=== PATIENT | female | born 1965 ===

== ENCOUNTER 2020-10-23 08:55 | Emergency (ER) | payer MEDICAID, SELFPAY ==
--- NOTE | ~2020-10-23 | CT_ITS ---
EXAMINATION: CT ABDOMEN AND PELVIS WITH CONTRAST CLINICAL INFORMATION: Left lower quadrant pain COMPARISON: [facility] 05/18/[address] abdomen 04/11/2013 TECHNIQUE: Multidetector volumetric images were obtained from the superior aspect of the liver through the pubic symphysis following administration 85 mL of Omnipaque 350 intravenous contrast. Sagittal and coronal reformatted images were obtained on the technologist's workstation. Oral contrast: No This CT examination was performed using dose optimization techniques as appropriate, variously including the following: *Automated exposure control *Adjustment of mA and/or kV according to patient size (this includes techniques or standardized protocols for targeted exams where dose is matched to indication/reason for exam; i.e. extremities or head) *Use of iterative reconstruction technique DLP: 389 mGy-cm FINDINGS: LUNG BASES: The lung bases are clear. The heart size is normal. LIVER, GALLBLADDER, AND BILIARY TREE: The liver is mildly enlarged in size, normal shape, and normal attenuation. Liver measures 16 cm in length. No focal hepatic lesion or biliary ductal dilatation is present. There is mild periportal edema or areola tissue similar to previous study. The gallbladder is unremarkable with no evidence of radiopaque gallstones, gallbladder wall thickening, or obvious pericholecystic inflammatory changes. PANCREAS: Unremarkable. SPLEEN: Unremarkable. ADRENAL GLANDS: Unremarkable. KIDNEYS AND URETERS: The kidneys are normal in size, shape, and attenuation. No hydronephrosis, hydroureter, or calculi seen. No perinephric stranding. BLADDER: Unremarkable. GASTROINTESTINAL TRACT: There is scattered stool and gas seen throughout the colon without any significant distention of the stomach is nondilated. Appendix is not seen with certainty. There is no free air or inflammatory process. ABDOMINAL WALL: No significant hernia is appreciated. LYMPH NODES: Normal. VASCULAR: Unremarkable. PELVIC VISCERA: The uterus is anteverted and appears unremarkable. There is no free air or free fluid. OSSEOUS STRUCTURES: There is mild ventral spondylosis. No lytic or sclerotic process CT/CT abdomen pelvis w con IMPRESSION: Mild constipation without any signs of active obstruction or inflammatory changes. No radiopaque urolith or hydroureteronephrosis. Mild hepatomegaly.
--- NOTE | 2020-10-23 09:11 | ECG_ITS ---
Test Reason : NASUEA Blood Pressure : / mmHG Vent. Rate : 053 BPM Atrial Rate : 053 BPM P-R Int : 178 ms QRS Dur : 098 ms QT Int : 472 ms P-R-T Axes : 072 064 071 degrees QTc Int : 442 ms Sinus bradycardia Otherwise normal ECG When compared with ECG of 11-APR-2013 06:45, No significant change was found Referred By: Kaylen Haji Electronically Signed By:Isrrael Espinoza
--- NOTE | 2020-10-23 09:13 | ED_ITS ---
HPI - Nausea/Vomiting/Diarrhea General Chief complaint: Nausea/Vomiting/Diarrhea <GERARDO Masters Last Filed: 10/23/20 13:55> Stated complaint: vomiting <GERARDO Masters - Last Filed: 10/23/20 13:55> Time Seen by Provider: 10/23/20 08:58 <GERARDO Masters Last Filed: 10/23/20 13:55> Source: patient <GERARDO Masters Last Filed: 10/23/20 13:55> Mode of arrival: ambulatory <GERARDO Masters Last Filed: 10/23/20 13:55> Limitations: no limitations <GERARDO Masters Last Filed: 10/23/20 13:55> History of Present Illness HPI Narrative: 55 y/o female with history of GERD & lactose intolerance presents to the ED c/o nausea and vomiting x36 hours. She states her vomiting started after she ate [employer] on Friday night. She had persistent vomiting yesterday of mucus and bile, no blood. She states she has not been able to tolerate PO. Last vomited last night before taking a shower. She continued to be nauseous this morning so she came to the ER for evaluation. She denies fever, chills, diarrhea, abdominal pain, sick contacts. No SOB. She had one episode of sharp right sided chest pain yesterday when she was vomiting and it is now resolved. <GERARDO Masters - Last Filed: 10/23/20 13:55> MD elicited complaint: nausea and vomiting <GERARDO Masters - Last Filed: 10/23/20 13:55> Pertinent past history: abdominal surgery (s/p appendectomy) <GERARDO Masters Last Filed: 10/23/20 13:55> Onset (ago): day(s) <GERARDO Masters Last Filed: 10/23/20 13:55> Description of vomiting: bilious <GERARDO Masters Last Filed: 10/23/20 13:55> Associated nausea: Yes <GERARDO Masters Last Filed: 10/23/20 13:55> Associated abdominal pain: Yes <GERARDO Masters Last Filed: 10/23/20 13:55> Location of pain: LLQ <GERARDO Masters Last Filed: 10/23/20 13:55> Pain consistency: intermittent <GERARDO Masters Last Filed: 10/23/20 13:55> Severity: mild <GERARDO Masters Last Filed: 10/23/20 13:55> Quality: aching <GERARDO Masters Last Filed: 10/23/20 13:55> Exacerbating factors: vomiting <GERARDO Masters Last Filed: 10/23/20 13:55> Relieving factors: eating <GERARDO Masters Last Filed: 10/23/20 13:55> Context: possible food poisoning <GERARDO Masters Last Filed: 10/23/20 13:55> Associated symptoms: nausea/vomiting <GERARDO Masters Last Filed: 10/23/20 13:55> Related Data Home medications: Previous Rx's Medication Instructions Recorded lorazepam 0.5 mg tablet 0.5 mg PO BEDTIME PRN 30 Days #30 08/02/20 tab ondansetron HCl [Zofran] 4 mg PO Q8H PRN #10 tab 10/23/20 <GERARDO Masters Last Filed: 10/23/20 13:55> Allergies/Adverse reactions: Allergies Allergy/AdvReac Type Severity Reaction Status Date / Time lactose [LACTOSE] Allergy Severe DIARRHEA Unverified 04/13/20 15:36 aspirin [Aspirin] Allergy Unknown UPSET Unverified 04/13/20 15:36 STOMACH cheese Allergy Unknown Uncoded 11/13/16 00:00 milk Allergy Unknown Uncoded 11/13/16 00:00 <GERARDO Masters Last Filed: 10/23/20 13:55> Review of Systems Review of Systems: Constitutional: No Fever, No Chills ENT/Mouth: No sore throat, No Rhinorrhea, No Swallowing Difficulty Cardiovascular: + Chest Pain (x1, resolved), No SOB, No Orthopnea, No Edema Respiratory: No Cough, No Sputum, No Wheezing, No dyspnea Gastrointestinal: + Nausea, + Vomiting, No Diarrhea, No abdominal Pain, No Hematochezia, No Melena Genitourinary: No Dysuria, No Urinary Frequency, No Hematuria Musculoskeletal: No joint pain, No Myalgias Skin: No Skin Lesions, No rash Neuro: No Weakness, No Numbness, No Dizziness, No Headache Heme/Lymph: No Bruising, No Lymphadenopathy Endocrine: No Polyuria, No Polydipsia <GERARDO Masters - Last Filed: 10/23/20 13:55> Gastrointestinal: Gastrointestinal: Reports nausea <GERARDO Masters - Last Filed: 10/23/20 13:55> COUNTS INCLUDE 234 BEDS AT THE [facility] Past Medical History Attestation statement: The following information was validated with the patient. <GERARDO Masters - Last Filed: 10/23/20 13:55> Medical History: Medical History GERD (gastroesophageal reflux disease) <GERARDO Masters - Last Filed: 10/23/20 13:55> Social History Social History: Social History Alcohol intake: unknown Smoked in Last 30 Days: No Use of substances other than those prescribed or required for medical reasons: No Advance Directives: No Advance Directives Information Provided: No <GERARDO Masters - Last Filed: 10/23/20 13:55> Physical Exam Vital Signs: Vital Signs: Last Vital Signs Temp 97.7 F 10/23/20 09:16 Pulse 55 10/23/20 12:28 Resp 16 10/23/20 12:28 BP 151/87 H 10/23/20 12:28 Pulse Ox 100 10/23/20 12:28 Body Mass Index 21.9 Appearance: Alert. Oriented X3. No acute distress. Eyes: Pupils equal, round and reactive to light. ENT: Pharynx normal. Neck: Normal inspection. Neck supple. CVS: Normal heart rate and rhythm. Pulses normal. Respiratory: No respiratory distress. Breath sounds normal. Abdomen: Soft, LLQ tednerness without rebound or guarding. +BS x4. well healed 2 inch surgical scar in RLQ Skin: Skin warm and dry. Normal skin color. Normal skin turgor. No rashes. Extremities: No lower extremity edema. Neuro: Oriented X 3. No motor deficit. No sensory deficit. <GERARDO Masters - Last Filed: 10/23/20 13:55> Vital Signs: Last Vital Signs Temp 97.7 F 10/23/20 09:16 Pulse 55 10/23/20 12:28 Resp 16 10/23/20 12:28 BP 151/87 H 10/23/20 12:28 Pulse Ox 100 10/23/20 12:28 Body Mass Index 21.9 <Sekou Bernardo MD - Last Filed: 11/10/20 13:30> Course Course Course Narrative: 55 y/o female presenting with nausea and vomiting x 36 hours, possibly related to food intake on Friday. DDx includes but not limited to gastroenteritis, diverticulitits, SBO. No fever, chills, diarrhea. She denies abdominal pain but has LLQ tenderness. Will get labs and CT scan for further evaluation. IVF and zofran ordered. <GERARDO Masters - Last Filed: 13:55> I have reviewed the chart <Sekou Bernardo MD - Last Filed: 11/10/20 13:30> Reevaluation(s) Reevaluation #1: 10:20 am - Patient now reporting 6/10 abdominal pain and headache. Labs are unremarkable, BUN slightly elevated consistent with mild dehydration. Will give dose of Toradol and get CT scan. <GERARDO Masters - Last Filed: 10/23/20 13:55> Reevaluation #2: Pain improved. CT scan only showing moderate constipation, no acute intraabdominal process. Now reporting heart burn, will give GI cocktail and PO trial. <GERARDO Masters - Last Filed: 10/23/20 13:55> Reevaluation #3: Patient tolerating PO. No vomiting while in the ER, last episode was last night. She feels okay. She is stable for discharge home with plans to f/u with PCP and come back to the ER if symptoms worsen. <GERARDO Masters - Last Filed: 10/23/20 13:55> MDM - Nausea/Vomiting/Diarrhea Medical Records Attestation: I reviewed the patient's medical records. <GERARDO Masters - Last Filed: 10/23/20 13:55> Lab Data Attestation: I reviewed the patient's lab results. <GERARDO Masters - Last Filed: 10/23/20 13:55> Result diagrams: : 10/23/20 09:28 10/23/20 09:28 <GERARDO Masters - Last Filed: 10/23/20 13:55> Labs: Lab Results 10/23/20 10/23/20 10/23/20 Range/Units 09:28 09:28 09:28 WBC 5.2 (4.8-10.8) X10*3/uL RBC 4.25 (4.20-5.50) X10*6/uL Hgb 12.2 (12.0-16.0) g/dl Hct 37.7 (37-47) % MCV 88.7 (80-98) fL MCH 28.7 (27.0-33.0) pg MCHC 32.4 (31.0-35.0) g/dl RDW 12.5 (11.0-16.0) % Plt Count 208 (160-400) X10*3/uL MPV 10.1 (9.4-12.3) fL Immature Gran % (Auto) 0.2 (0.0-0.4) % Neut % (Auto) 72.4 (45-73) % Lymph % (Auto) 20.2 (20-40) % [place] % (Auto) 7.2 (2-11) % Eos % (Auto) 0.0 (0-4) % Baso % (Auto) 0.0 (0-2) % Lymph # (Auto) 1.0 L (1.2-4.9) X10*3/uL [place] # (Auto) 0.4 (0.1-1.2) X10*3/uL Eos # (Auto) 0.0 (0.0-0.4) X10*3/uL Baso # (Auto) 0.0 (0.0-0.2) X10*3/uL Abs Immat Gran (auto) 0.01 (0.00-0.03) X10*3/uL Absolute Neuts (auto) 3.7 (2.0-8.3) X10*3/uL Absolute Nucleated RBC 0.000 (0.0-0.012) X10*3/uL Nucleated RBC % (auto) 0.0 (0.0-0.2) /100WBC Hold Blue Top SEE NOTE Sodium 144 (135-145) mmol/L Potassium 4.1 (3.3-5.1) mmol/L Chloride 104 (96-108) mmol/L Carbon Dioxide 26 (22-29) mmol/L Anion Gap 18 (12-20) BUN 19 H (9-16) mg/dL Creatinine 0.77 (0.5-1.4) mg/dL Estim Creat Clear Calc 65.3 Estimated GFR > 60 Random Glucose 90 (60-115) mg/dL Calcium 9.4 (8.4-10.2) mg/dL Magnesium 2.5 (1.6-2.6) mg/dL Total Bilirubin 0.5 (0.0-1.0) mg/dL Direct Bilirubin 0.2 (0.0-0.5) mg/dL AST 19 (5-31) U/L ALT 11 (0-31) U/L Alkaline Phosphatase 86 (39-117) U/L Total Protein 8.4 H (6.5-8.0) g/dL Albumin 4.7 (3.5-5.0) g/dL Lipase 21 (8-78) U/L Urine Color Urine Appearance Urine pH (5.0-8.0) Ur Specific [place] (1.005-1.025) Urine Protein (NEG-TRACE) MG/DL Urine Glucose (UA) (NEG) MG/DL Urine Ketones (NEG) MG/DL Urine Blood (NEG) Urine Nitrite (NEG) Ur Leukocyte Esterase (NEG) Urine RBC (0) /HPF Urine WBC (0-4) /HPF Ur Squamous Epith Cells /LPF Urine Bacteria /LPF COVID-19 (GARCIA) (Negative) COVID-19 Clin Com 10/23/20 10/23/20 Range/Units 09:30 11:12 WBC (4.8-10.8) X10*3/uL RBC (4.20-5.50) X10*6/uL Hgb (12.0-16.0) g/dl Hct (37-47) % MCV (80-98) fL MCH (27.0-33.0) pg MCHC (31.0-35.0) g/dl RDW (11.0-16.0) % Plt Count (160-400) X10*3/uL MPV (9.4-12.3) fL Immature Gran % (Auto) (0.0-0.4) % Neut % (Auto) (45-73) % Lymph % (Auto) (20-40) % [place] % (Auto) (2-11) % Eos % (Auto) (0-4) % Baso % (Auto) (0-2) % Lymph # (Auto) (1.2-4.9) X10*3/uL [place] # (Auto) (0.1-1.2) X10*3/uL Eos # (Auto) (0.0-0.4) X10*3/uL Baso # (Auto) (0.0-0.2) X10*3/uL Abs Immat Gran (auto) (0.00-0.03) X10*3/uL Absolute Neuts (auto) (2.0-8.3) X10*3/uL Absolute Nucleated RBC (0.0-0.012) X10*3/uL Nucleated RBC % (auto) (0.0-0.2) /100WBC Hold Blue Top Sodium (135-145) mmol/L Potassium (3.3-5.1) mmol/L Chloride (96-108) mmol/L Carbon Dioxide (22-29) mmol/L Anion Gap (12-20) BUN (9-16) mg/dL Creatinine (0.5-1.4) mg/dL Estim Creat Clear Calc Estimated GFR Random Glucose (60-115) mg/dL Calcium (8.4-10.2) mg/dL Magnesium (1.6-2.6) mg/dL Total Bilirubin (0.0-1.0) mg/dL Direct Bilirubin (0.0-0.5) mg/dL AST (5-31) U/L ALT (0-31) U/L Alkaline Phosphatase (39-117) U/L Total Protein (6.5-8.0) g/dL Albumin (3.5-5.0) g/dL Lipase (8-78) U/L Urine Color YELLOW Urine Appearance CLEAR Urine pH 5.5 (5.0-8.0) Ur Specific [place] 1.010 (1.005-1.025) Urine Protein NEG (NEG-TRACE) MG/DL Urine Glucose (UA) NEG (NEG) MG/DL Urine Ketones 15 (NEG) MG/DL Urine Blood TRACE (NEG) Urine Nitrite NEG (NEG) Ur Leukocyte Esterase NEG (NEG) Urine RBC 0-2 (0) /HPF Urine WBC 0 (0-4) /HPF Ur Squamous Epith Cells 2+ /LPF Urine Bacteria NONE /LPF COVID-19 (GARCIA) Negative (Negative) COVID-19 Clin Com See Note <GERARDO Masters - Last Filed: 10/23/20 13:55> Lab Results 10/23/20 10/23/20 10/23/20 Range/Units 09:28 09:28 09:28 WBC 5.2 (4.8-10.8) X10*3/uL RBC 4.25 (4.20-5.50) X10*6/uL Hgb 12.2 (12.0-16.0) g/dl Hct 37.7 (37-47) % MCV 88.7 (80-98) fL MCH 28.7 (27.0-33.0) pg MCHC 32.4 (31.0-35.0) g/dl RDW 12.5 (11.0-16.0) % Plt Count 208 (160-400) X10*3/uL MPV 10.1 (9.4-12.3) fL Immature Gran % (Auto) 0.2 (0.0-0.4) % Neut % (Auto) 72.4 (45-73) % Lymph % (Auto) 20.2 (20-40) % [place] % (Auto) 7.2 (2-11) % Eos % (Auto) 0.0 (0-4) % Baso % (Auto) 0.0 (0-2) % Lymph # (Auto) 1.0 L (1.2-4.9) X10*3/uL [place] # (Auto) 0.4 (0.1-1.2) X10*3/uL Eos # (Auto) 0.0 (0.0-0.4) X10*3/uL Baso # (Auto) 0.0 (0.0-0.2) X10*3/uL Abs Immat Gran (auto) 0.01 (0.00-0.03) X10*3/uL Absolute Neuts (auto) 3.7 (2.0-8.3) X10*3/uL Absolute Nucleated RBC 0.000 (0.0-0.012) X10*3/uL Nucleated RBC % (auto) 0.0 (0.0-0.2) /100WBC Hold Blue Top SEE NOTE Sodium 144 (135-145) mmol/L Potassium 4.1 (3.3-5.1) mmol/L Chloride 104 (96-108) mmol/L Carbon Dioxide 26 (22-29) mmol/L Anion Gap 18 (12-20) BUN 19 H (9-16) mg/dL Creatinine 0.77 (0.5-1.4) mg/dL Estim Creat Clear Calc 65.3 Estimated GFR > 60 Random Glucose 90 (60-115) mg/dL Calcium 9.4 (8.4-10.2) mg/dL Magnesium 2.5 (1.6-2.6) mg/dL Total Bilirubin 0.5 (0.0-1.0) mg/dL Direct Bilirubin 0.2 (0.0-0.5) mg/dL AST 19 (5-31) U/L ALT 11 (0-31) U/L Alkaline Phosphatase 86 (39-117) U/L Total Protein 8.4 H (6.5-8.0) g/dL Albumin 4.7 (3.5-5.0) g/dL Lipase 21 (8-78) U/L Urine Color Urine Appearance Urine pH (5.0-8.0) Ur Specific [place] (1.005-1.025) Urine Protein (NEG-TRACE) MG/DL Urine Glucose (UA) (NEG) MG/DL Urine Ketones (NEG) MG/DL Urine Blood (NEG) Urine Nitrite (NEG) Ur Leukocyte Esterase (NEG) Urine RBC (0) /HPF Urine WBC (0-4) /HPF Ur Squamous Epith Cells /LPF Urine Bacteria /LPF COVID-19 (GARCIA) (Negative) COVID-19 Clin Com 10/23/20 10/23/20 Range/Units 09:30 11:12 WBC (4.8-10.8) X10*3/uL RBC (4.20-5.50) X10*6/uL Hgb (12.0-16.0) g/dl Hct (37-47) % MCV (80-98) fL MCH (27.0-33.0) pg MCHC (31.0-35.0) g/dl RDW (11.0-16.0) % Plt Count (160-400) X10*3/uL MPV (9.4-12.3) fL Immature Gran % (Auto) (0.0-0.4) % Neut % (Auto) (45-73) % Lymph % (Auto) (20-40) % [place] % (Auto) (2-11) % Eos % (Auto) (0-4) % Baso % (Auto) (0-2) % Lymph # (Auto) (1.2-4.9) X10*3/uL [place] # (Auto) (0.1-1.2) X10*3/uL Eos # (Auto) (0.0-0.4) X10*3/uL Baso # (Auto) (0.0-0.2) X10*3/uL Abs Immat Gran (auto) (0.00-0.03) X10*3/uL Absolute Neuts (auto) (2.0-8.3) X10*3/uL Absolute Nucleated RBC (0.0-0.012) X10*3/uL Nucleated RBC % (auto) (0.0-0.2) /100WBC Hold Blue Top Sodium (135-145) mmol/L Potassium (3.3-5.1) mmol/L Chloride (96-108) mmol/L Carbon Dioxide (22-29) mmol/L Anion Gap (12-20) BUN (9-16) mg/dL Creatinine (0.5-1.4) mg/dL Estim Creat Clear Calc Estimated GFR Random Glucose (60-115) mg/dL Calcium (8.4-10.2) mg/dL Magnesium (1.6-2.6) mg/dL Total Bilirubin (0.0-1.0) mg/dL Direct Bilirubin (0.0-0.5) mg/dL AST (5-31) U/L ALT (0-31) U/L Alkaline Phosphatase (39-117) U/L Total Protein (6.5-8.0) g/dL Albumin (3.5-5.0) g/dL Lipase (8-78) U/L Urine Color YELLOW Urine Appearance CLEAR Urine pH 5.5 (5.0-8.0) Ur Specific [place] 1.010 (1.005-1.025) Urine Protein NEG (NEG-TRACE) MG/DL Urine Glucose (UA) NEG (NEG) MG/DL Urine Ketones 15 (NEG) MG/DL Urine Blood TRACE (NEG) Urine Nitrite NEG (NEG) Ur Leukocyte Esterase NEG (NEG) Urine RBC 0-2 (0) /HPF Urine WBC 0 (0-4) /HPF Ur Squamous Epith Cells 2+ /LPF Urine Bacteria NONE /LPF COVID-19 (GARCIA) Negative (Negative) COVID-19 Clin Com See Note <Sekou Bernardo MD - Last Filed: 11/10/20 13:30> ECG Data Attestation: I personally reviewed and interpreted this ECG as follows: <GERARDO Masters - Last Filed: 10/23/20 13:55> ECG interpretation date: 10/23/20 <GERARDO Masters - Last Filed: 10/23/20 13:55> ECG interpretation time: 09:58 <GERARDO Masters - Last Filed: 10/23/20 13:55> Interpretation: sinus bradycardia, HR 53 bpm, normal NV interval, normal QTc, no ST segment elevations. <GERARDO Masters - Last Filed: 10/23/20 13:55> Discharge Plan Discharge Clinical Impression: Gastroenteritis <GERARDO Masters - Last Filed: 10/23/20 13:55> Patient Disposition: Home, Self-Care <GERARDO Masters - Last Filed: 10/23/20 13:55> Instructions: Gastroenteritis (ED), Acute Nausea and Vomiting (ED) <GERARDO Masters - Last Filed: 10/23/20 13:55> Additional Instructions: Your lab workup today was unremarkable. Your CT scan showed no acute abnormality - it did show moderate constipation. Rest and drink plenty of fluids. Stick to a bland diet while you are not feeling well. Take the prescribed nausea medication as needed. Recommend starting Miralax 17 grams once per day, found over the counter. Follow up with your doctor this week. If you have worsening symptoms come back to the ER for further evaluation. <GERARDO Masters - Last Filed: 10/23/20 13:55> Prescriptions: New ondansetron HCl [Zofran] 4 mg tablet 4 mg PO Q8H PRN (Reason: nausea and vomiting) Qty: 10 RF: 0 No Action lorazepam 0.5 mg tablet 0.5 mg PO BEDTIME PRN (Reason: anxiety) 30 Days Qty: 30 RF: 0 <GERARDO Masters - Last Filed: 10/23/20 13:55> Interventions: ED Discharge Assessment Last Done: 10/23/20 14:02 <GERARDO Masters - Last Filed: 10/23/20 13:55> Discharge Date/Time: 10/23/20 14:04 <GERARDO Masters - Last Filed: 10/23/20 13:55>
[2020-10-23 09:16] VITALS: BP 151/78; PULSE 59; RESP 18; TEMP 36.5; O2SAT 99; BMI 21.9
[2020-10-23] MEDS: 0.9 % Sodium Chloride 1,000 ML 999 ML IVCONT (09:34)
[2020-10-23] MEDS: ondansetron HCL 4 MG/2 ML VIAL IVPUSH (09:34)
[2020-10-23 09:35] VITALS: PULSE 57; RESP 16; O2SAT 99
[2020-10-23 09:35] LABS: MANUAL DIFF FLAG NO
[2020-10-23 09:41] LABS: Hematocrit 37.7 % (37-47); Hemoglobin 12.2 g/dl (12.0-16.0); Imm Gran Abs Auto 0.01 X10*3/uL (0.00-0.03); Imm Gran Pct Auto 0.2 % (0.0-0.4); Lymphocytes Percent Auto 20.2 % (20-40); Mean Corpuscular HGB Conc 32.4 g/dl (31.0-35.0); Mean Corpuscular Hemoglobin 28.7 pg (27.0-33.0); Mean Corpuscular Volume 88.7 fL (80-98); Mean Platelet Volume 10.1 fL (9.4-12.3); Monocytes Absolute Auto 0.4 X10*3/uL (0.1-1.2); Monocytes Percent Auto 7.2 % (2-11); Neutrophils Absolute Auto 3.7 X10*3/uL (2.0-8.3); Neutrophils Percent Auto 72.4 % (45-73); Platelet Count 208 X10*3/uL (160-400); Red Blood Count 4.25 X10*6/uL (4.20-5.50); Red Cell Distribution Width 12.5 % (11.0-16.0); White Blood Count 5.2 X10*3/uL (4.8-10.8)
[2020-10-23 09:53] LABS: COVID-19 Test Negative (Negative)
[2020-10-23 10:08] LABS: Alanine Aminotransferase 11 U/L (0-31); Albumin Level 4.7 g/dL (3.5-5.0); Alkaline Phosphatase 86 U/L (39-117); Anion Gap 18 (12-20); Aspartate Amino Transferase 19 U/L (5-31); Bilirubin Direct 0.2 mg/dL (0.0-0.5); Bilirubin Total 0.5 mg/dL (0.0-1.0); Blood Urea Nitrogen 19 mg/dL (9-16); Calcium 9.4 mg/dL (8.4-10.2); Carbon Dioxide 26 mmol/L (22-29); Chloride 104 mmol/L (96-108); Creatinine Clr Calc Pharmacy 65.3; Estimated Glomerular Filt Rate > 60; Glucose Random 90 mg/dL (60-115); Lipase 21 U/L (8-78); Magnesium 2.5 mg/dL (1.6-2.6); Potassium 4.1 mmol/L (3.3-5.1); Sodium 144 mmol/L (135-145); Total Protein 8.4 g/dL (6.5-8.0)
[2020-10-23] MEDS: Ketorolac Tromethamine 30 MG/ML VIAL IVPUSH (10:27)
[2020-10-23 10:28] VITALS: BP 145/80; PULSE 54; RESP 16; O2SAT 99
[2020-10-23] MEDS: iohexoL 350 MG/ML 100 ML INFUS..BTL IV (11:05)
[2020-10-23 11:19] LABS: Glucose Urine UA NEG (NEG); Leukocyte Esterase Urine NEG (NEG); Nitrite Urine NEG (NEG); PH 5.5 (5.0-8.0); Urine Blood TRACE (NEG); Urine Ketones 15 MG/DL (NEG); Urine Protein NEG (NEG-TRACE)
[2020-10-23 11:22] LABS: Appearance Urine CLEAR; Color Urine YELLOW
[2020-10-23 11:36] LABS: RBC Urine 0-2 /HPF (0); Squamous Epithelial Cell Urine 2+ /LPF; WBC Urine 0 /HPF (0-4)
[2020-10-23 12:28] VITALS: BP 151/87; PULSE 55; RESP 16; O2SAT 100
[2020-10-23] MEDS: Omeprazole 40 MG CAPSULE.DR PO (12:29)
[2020-10-23] MEDS: Magnesium Hydrox/Alum Hydrox 30 ML ORAL.SUSP PO (12:29)
[2020-10-23] MEDS: Lidocaine HCl Viscous 2 % 15 ML SOLUTION MUCOUS MEM (12:29)
[2020-10-23] MEDS: Metoclopramide HCl 10 MG/2 ML VIAL IVPUSH (13:07)
== END 2020-10-23 14:04 | disposition home or self-care (01) ==
PROVIDERS: Physician Assistant; Emergency Provider Emergency Medicine; PCP Internal Medicine
DX: K52.9 Noninfective gastroenteritis and colitis, unspecified (principal); K59.00 Constipation, unspecified; R11.2 Nausea with vomiting, unspecified; K21.9 Gastro-esophageal reflux disease without esophagitis; Z20.822 Contact with and (suspected) exposure to COVID-19
CPT/HCPCS: 36415; 74177; 80048; 80076; 81001; 83690; 83735; 85025; 87635; 93005; 96361; 96374; 96375; 99284; J1885; J2405; J2765; Q9967

== ENCOUNTER 2020-11-24 09:04 | Emergency (ER) | payer MEDICAID, SELFPAY ==
[2020-11-24 09:18] VITALS: BP 136/83; PULSE 83; RESP 16; TEMP 36.8; O2SAT 98; BMI 22.0
[2020-11-24 09:23] VITALS: BP 136/83; PULSE 83; RESP 16; TEMP 36.8; O2SAT 98
--- NOTE | 2020-11-24 09:43 | ED.ABDPAIN ---
HPI - Abdominal Pain General Chief Complaint: Abdominal Pain Stated Complaint: MULTI COMPLAINTS Time Seen by Provider: 11/24/20 09:26 Source: patient Mode of arrival: ambulatory Limitations: no limitations History of Present Illness HPI narrative: Patient is a 55-year-old female with a past medical history of GERD depression and anxiety who presents with 2 days of abdominal pain and loose stools. Patient states she has left lower quadrant pain and had 1 episode of vomiting food yesterday, she denies any blood or black in the vomitus. She also had 2 episodes of watery stools, denies bloody or black in the stools. Denies chest pain, shortness of breath or fevers or urinary symptoms. Patient was just seen here a month ago and had an abdominal CT scan which did not show signs of diverticulosis, it showed mild hepatomegaly and mild constipation. Patient states she has not had a colonoscopy in many many years. Patient states she has been eating and drinking normally. Related Data Previous Rx's Medication Instructions Recorded lorazepam 0.5 mg tablet 0.5 mg PO BEDTIME PRN 30 Days #30 08/02/20 tab ondansetron HCl [Zofran] 4 mg PO Q8H PRN #10 tab 10/23/20 Allergies Allergy/AdvReac Type Severity Reaction Status Date / Time lactose [LACTOSE] Allergy Severe DIARRHEA Unverified 04/13/20 15:36 aspirin [Aspirin] Allergy Unknown UPSET Unverified 04/13/20 15:36 STOMACH cheese Allergy Unknown Uncoded 11/13/16 00:00 milk Allergy Unknown Uncoded 11/13/16 00:00 Review of Systems Review of Systems Yes all other systems are reviewed and are negative Physical Exam Vital Signs: Vital Signs: Last Vital Signs Temp 98.3 F 11/24/20 09:23 Pulse 83 11/24/20 09:23 Resp 16 11/24/20 09:23 BP 136/83 11/24/20 09:23 Pulse Ox 98 11/24/20 09:23 Body Mass Index 22.0 Const: General: cooperative, healthy appearing, comfortable, no acute distress and well developed Orientation/consciousness: patient oriented x3 Limitations: no limitations HENMT: Head: Yes normal to inspection Eyes: General: appearance normal, both eyes and all related structures Neck: Neck: Yes normal visual inspection and Yes full ROM Resp: Effort & Inspection: normal respiratory effort and able to speak in complete sentences Auscultation: clear to auscultation bilaterally Cardio: Rate: regular rate Rhythm: regular rhythm Heart sounds: normal S1 and S2 GI: Inspection: Yes normal to inspection Palpation (GI): Soft to palpation and Tenderness to palpation present (GI) in the LLQ; Joseph's sign negative and with no rebound tenderness Auscultation: normal bowel sounds Skin: General skin exam: no rashes or lesions noted Neuro: General: patient oriented x3 Extrem: General: Yes normal to inspection Course Course Course Narrative: Patient is a 55-year-old female with a past medical history of GERD depression and anxiety who presents with 2 days of abdominal pain and loose stools. Vital signs are stable. Patient appears well hydrated. As patient just had a negative CT scan a month ago, I am not going to re-scanned her, area of pain is left lower quadrant so very unlikely diverticulitis. Will get labs and UA. MDM - Abdominal Pain Medical Records Attestation: I reviewed the patient's medical records. Lab Data Attestation: I reviewed the patient's lab results. Result diagrams: 11/24/20 09:56 11/24/20 09:56 Labs: Lab Results 11/24/20 11/24/20 11/24/20 Range/Units 09:56 09:56 09:56 WBC 5.5 (4.8-10.8) X10*3/uL RBC 4.43 (4.20-5.50) X10*6/uL Hgb 12.6 (12.0-16.0) g/dl Hct 39.2 (37-47) % MCV 88.5 (80-98) fL MCH 28.4 (27.0-33.0) pg MCHC 32.1 (31.0-35.0) g/dl RDW 12.5 (11.0-16.0) % Plt Count 215 (160-400) X10*3/uL MPV 9.9 (9.4-12.3) fL Immature Gran % (Auto) 0.2 (0.0-0.4) % Neut % (Auto) 72.2 (45-73) % Lymph % (Auto) 19.0 L (20-40) % [place] % (Auto) 7.9 (2-11) % Eos % (Auto) 0.5 (0-4) % Baso % (Auto) 0.2 (0-2) % Lymph # (Auto) 1.1 L (1.2-4.9) X10*3/uL [place] # (Auto) 0.4 (0.1-1.2) X10*3/uL Eos # (Auto) 0.0 (0.0-0.4) X10*3/uL Baso # (Auto) 0.0 (0.0-0.2) X10*3/uL Abs Immat Gran (auto) 0.01 (0.00-0.03) X10*3/uL Absolute Neuts (auto) 4.0 (2.0-8.3) X10*3/uL Absolute Nucleated RBC 0.000 (0.0-0.012) X10*3/uL Nucleated RBC % (auto) 0.0 (0.0-0.2) /100WBC Hold Blue Top SEE NOTE Sodium 142 (135-145) mmol/L Potassium 4.2 (3.3-5.1) mmol/L Chloride 105 (96-108) mmol/L Carbon Dioxide 27 (22-29) mmol/L Anion Gap 14 (12-20) BUN 17 H (9-16) mg/dL Creatinine 0.75 (0.5-1.4) mg/dL Estim Creat Clear Calc 67.0 Estimated GFR > 60 Random Glucose 83 (60-115) mg/dL Calcium 9.6 (8.4-10.2) mg/dL Total Bilirubin 0.6 (0.0-1.0) mg/dL AST 17 (5-31) U/L ALT 11 (0-31) U/L Alkaline Phosphatase 96 (39-117) U/L Total Protein 7.9 (6.5-8.0) g/dL Albumin 4.4 (3.5-5.0) g/dL Lipase 29 (8-78) U/L Urine Color Urine Appearance Urine pH (5.0-8.0) Ur Specific [place] (1.005-1.025) Urine Protein (NEG-TRACE) MG/DL Urine Glucose (UA) (NEG) MG/DL Urine Ketones (NEG) MG/DL Urine Blood (NEG) Urine Nitrite (NEG) Ur Leukocyte Esterase (NEG) Urine RBC (0) /HPF Urine WBC (0-4) /HPF Ur Squamous Epith Cells /LPF Urine Bacteria /LPF Urine Mucus /LPF 11/24/20 Range/Units 11:04 WBC (4.8-10.8) X10*3/uL RBC (4.20-5.50) X10*6/uL Hgb (12.0-16.0) g/dl Hct (37-47) % MCV (80-98) fL MCH (27.0-33.0) pg MCHC (31.0-35.0) g/dl RDW (11.0-16.0) % Plt Count (160-400) X10*3/uL MPV (9.4-12.3) fL Immature Gran % (Auto) (0.0-0.4) % Neut % (Auto) (45-73) % Lymph % (Auto) (20-40) % [place] % (Auto) (2-11) % Eos % (Auto) (0-4) % Baso % (Auto) (0-2) % Lymph # (Auto) (1.2-4.9) X10*3/uL [place] # (Auto) (0.1-1.2) X10*3/uL Eos # (Auto) (0.0-0.4) X10*3/uL Baso # (Auto) (0.0-0.2) X10*3/uL Abs Immat Gran (auto) (0.00-0.03) X10*3/uL Absolute Neuts (auto) (2.0-8.3) X10*3/uL Absolute Nucleated RBC (0.0-0.012) X10*3/uL Nucleated RBC % (auto) (0.0-0.2) /100WBC Hold Blue Top Sodium (135-145) mmol/L Potassium (3.3-5.1) mmol/L Chloride (96-108) mmol/L Carbon Dioxide (22-29) mmol/L Anion Gap (12-20) BUN (9-16) mg/dL Creatinine (0.5-1.4) mg/dL Estim Creat Clear Calc Estimated GFR Random Glucose (60-115) mg/dL Calcium (8.4-10.2) mg/dL Total Bilirubin (0.0-1.0) mg/dL AST (5-31) U/L ALT (0-31) U/L Alkaline Phosphatase (39-117) U/L Total Protein (6.5-8.0) g/dL Albumin (3.5-5.0) g/dL Lipase (8-78) U/L Urine Color YELLOW Urine Appearance HAZY Urine pH 5.5 (5.0-8.0) Ur Specific [place] 1.025 (1.005-1.025) Urine Protein NEG (NEG-TRACE) MG/DL Urine Glucose (UA) NEG (NEG) MG/DL Urine Ketones 15 (NEG) MG/DL Urine Blood TRACE (NEG) Urine Nitrite NEG (NEG) Ur Leukocyte Esterase NEG (NEG) Urine RBC 0-2 (0) /HPF Urine WBC 0-2 (0-4) /HPF Ur Squamous Epith Cells 2+ /LPF Urine Bacteria NONE /LPF Urine Mucus TRACE /LPF Discharge Plan Discharge Clinical Impression: Viral gastroenteritis Patient Disposition: Home, Self-Care Instructions: Gastroenteritis (ED) Additional Instructions: Please be sure to stay well hydrated, alternating electrolyte drink with water. If you develop a fever you cannot control with ibuprofen or Tylenol, feel like her heart is racing or developed chest pain or shortness of breath, black or bloody stools black or bloody vomitus, please return to the emergency department. Otherwise, this viral gastroenteritis should pass in the next few days. Prescriptions: No Action lorazepam 0.5 mg tablet 0.5 mg PO BEDTIME PRN (Reason: anxiety) 30 Days Qty: 30 RF: 0 ondansetron HCl [Zofran] 4 mg tablet 4 mg PO Q8H PRN (Reason: nausea and vomiting) Qty: 10 RF: 0 Referrals: Alecia Godfrey MD [Primary Care Provider] - 5 days (if viral gastroenteritis) [facility] Past Medical History Medical History Anxiety Depression GERD (gastroesophageal reflux disease) Social History Social History Alcohol intake: never Smoking Status: Never smoker Use of substances other than those prescribed or required for medical reasons: No Advance Directives: No Advance Directives Information Provided: No
[2020-11-24 10:01] LABS: MANUAL DIFF FLAG NO
[2020-11-24 10:09] LABS: Basophils Percent Auto 0.2 % (0-2); Eosinophils Percent Auto 0.5 % (0-4); Hematocrit 39.2 % (37-47); Hemoglobin 12.6 g/dl (12.0-16.0); Imm Gran Abs Auto 0.01 X10*3/uL (0.00-0.03); Imm Gran Pct Auto 0.2 % (0.0-0.4); Lymphocytes Absolute Auto 1.1 X10*3/uL (1.2-4.9); Mean Corpuscular HGB Conc 32.1 g/dl (31.0-35.0); Mean Corpuscular Hemoglobin 28.4 pg (27.0-33.0); Mean Corpuscular Volume 88.5 fL (80-98); Mean Platelet Volume 9.9 fL (9.4-12.3); Monocytes Absolute Auto 0.4 X10*3/uL (0.1-1.2); Monocytes Percent Auto 7.9 % (2-11); Neutrophils Percent Auto 72.2 % (45-73); Platelet Count 215 X10*3/uL (160-400); Red Blood Count 4.43 X10*6/uL (4.20-5.50); Red Cell Distribution Width 12.5 % (11.0-16.0); White Blood Count 5.5 X10*3/uL (4.8-10.8)
[2020-11-24 10:31] LABS: Alanine Aminotransferase 11 U/L (0-31); Albumin Level 4.4 g/dL (3.5-5.0); Alkaline Phosphatase 96 U/L (39-117); Anion Gap 14 (12-20); Aspartate Amino Transferase 17 U/L (5-31); Bilirubin Total 0.6 mg/dL (0.0-1.0); Blood Urea Nitrogen 17 mg/dL (9-16); Calcium 9.6 mg/dL (8.4-10.2); Carbon Dioxide 27 mmol/L (22-29); Chloride 105 mmol/L (96-108); Estimated Glomerular Filt Rate > 60; Glucose Random 83 mg/dL (60-115); Lipase 29 U/L (8-78); Potassium 4.2 mmol/L (3.3-5.1); Sodium 142 mmol/L (135-145); Total Protein 7.9 g/dL (6.5-8.0)
[2020-11-24 11:25] LABS: Glucose Urine UA NEG (NEG); Leukocyte Esterase Urine NEG (NEG); Nitrite Urine NEG (NEG); PH 5.5 (5.0-8.0); Specific Gravity - Urine 1.025 (1.005-1.025); Urine Blood TRACE (NEG); Urine Ketones 15 MG/DL (NEG); Urine Protein NEG (NEG-TRACE)
[2020-11-24 11:26] LABS: Appearance Urine HAZY; Color Urine YELLOW
[2020-11-24 11:36] LABS: Mucus Urine TRACE /LPF; RBC Urine 0-2 /HPF (0); Squamous Epithelial Cell Urine 2+ /LPF; WBC Urine 0-2 /HPF (0-4)
[2020-11-24 11:42] VITALS: BP 144/81; PULSE 80; RESP 18; O2SAT 96
--- NOTE | 2020-11-24 11:50 | PC.NURSE ---
pt has had no episodes of vomiting. She has been resting quietly in room, was ambulatory to bathroom with no distress.
== END 2020-11-24 11:55 | disposition home or self-care (01) ==
PROVIDERS: Physician Assistant; Emergency Provider Emergency Medicine; PCP Internal Medicine
DX: A08.4 Viral intestinal infection, unspecified (principal); R10.32 Left lower quadrant pain; K21.9 Gastro-esophageal reflux disease without esophagitis; F41.9 Anxiety disorder, unspecified
CPT/HCPCS: 36415; 80053; 81001; 83690; 85025; 99283; 99285

== ENCOUNTER 2021-04-02 11:55 | Emergency (ER) | payer MEDICAID, SELFPAY ==
[2021-04-02 12:29] VITALS: BP 139/87; PULSE 74; RESP 16; TEMP 36.2; O2SAT 99; BMI 21.9
[2021-04-02 15:02] VITALS: BP 163/86; PULSE 57; RESP 18; TEMP 36.6; O2SAT 99
[2021-04-02 15:06] VITALS: BP 161/84; PULSE 54
--- NOTE | 2021-04-02 15:07 | ED.GENADULT ---
HPI - General Adult General Chief complaint: Dizziness Stated complaint: DIZZY Time Seen by Provider: 04/02/21 15:06 Source: patient Mode of arrival: ambulatory Limitations: no limitations History of Present Illness HPI narrative: 55-year-old female is here today for complaining of dizziness. Patient reports that she has symptoms of rhinitis in the last few days. Denies any headaches, palpitation, presyncope or syncope, CP. Patient denies any shortness of breath with or without exertion. She reports that she also feels like she has sinus issues. Denies any other symptoms. Patient reports that she has a history of anxiety and takes lorazepam for. Patient denies any seasonal allergies. Onset (ago): day(s) Related Data Previous Rx's Medication Instructions Recorded lorazepam 0.5 mg tablet 0.5 mg PO BEDTIME PRN 30 Days #30 08/02/20 tab ondansetron HCl 4 mg tablet 4 mg PO Q8H PRN #10 tab 10/23/20 (Zofran) amoxicillin 875 mg-potassium 1 tab PO BID 7 Days #14 tab 04/02/21 clavulanate 125 mg tablet (Augmentin) cetirizine 10 mg capsule (Zyrtec) 10 mg PO DAILY PRN #20 cap 04/02/21 fluticasone propionate 50 1 spray INTRANASAL BID #16 g 04/02/21 mcg/actuation nasal spray,suspension (Allergy Relief (fluticasone)) Allergies Allergy/AdvReac Type Severity Reaction Status Date / Time lactose [LACTOSE] Allergy Severe DIARRHEA Unverified 04/13/20 15:36 aspirin [Aspirin] Allergy Unknown UPSET Unverified 04/13/20 15:36 STOMACH cheese Allergy Unknown Uncoded 11/13/16 00:00 milk Allergy Unknown Uncoded 11/13/16 00:00 Review of Systems Review of Systems: Constitutional : No Weight loss, No Fever, No Chills, No Night Sweats, No Fatigue, No Malaise ENT/Mouth : No Hearing loss, No Ear Pain, Nasal Congestion, No Sinus Pain, No Hoarseness, No sore throat, Rhinorrhea, No Swallowing Difficulty Eyes: No Eye Pain, No Swelling, No Redness, No Foreign Body, No Discharge, No Vision Changes Cardiovascular : No Chest Pain, No SOB, No Dyspnea on Exertion, No Orthopnea, No Edema, No Palpitations Respiratory : No Cough, No Sputum, No Wheezing, No Smoke Exposure, No Dyspnea Gastrointestinal : No Nausea, No Vomiting, No Diarrhea, No Constipation, No abdominal Pain, No Hematochezia, No Melena Genitourinary : no irregular bleeding, No Dysuria, No Urinary Frequency, No Hematuria, No Urinary Incontinence, No Urgency, No Flank Pain, No Urinary Flow Changes, No Hesitancy Musculoskeletal : No joint pain, No Myalgias, No Joint Swelling Skin : No Skin Lesions, No rash Neuro : No Weakness, No Numbness, No Paresthesias, No Loss of Consciousness, No Dizziness, No Headache Psych : No Anxiety/Panic, No Depression, No SI/HI/AH/VH, No Social Issues, Heme/Lymph: No Bruising, No Bleeding,No Lymphadenopathy Endocrine : No Polyuria, No Polydipsia, No Temperature Intolerance Yes all other systems are reviewed and are negative PMFSH Past Medical History Medical History Anxiety Depression GERD (gastroesophageal reflux disease) Social History Social History Alcohol intake: never Advance Directives: Yes Advance Directives Information Provided: No Advance Directives on File: No Physical Exam Vital Signs: Vital Signs: Last Vital Signs Temp 98 F 04/02/21 15:02 Pulse 70 04/02/21 15:09 Resp 18 04/02/21 15:02 BP 188/103 H 04/02/21 15:09 Pulse Ox 99 04/02/21 15:02 Body Mass Index 21.9 Const: General: healthy appearing, no acute distress and well developed Nutritional Appearance: well nourished Orientation/consciousness: patient oriented x3 HENMT: Head: Yes normal to inspection, Yes normocephalic and Yes atraumatic Ears: TM abnormal wth effusion and other (Left) Face and sinus: Yes sinuses nontender Mouth: Normal oral and palatal mucosa present Throat: Yes posterior oropharynx normal Neck: Neck: Yes normal visual inspection, Yes full ROM and Yes trachea midline Thyroid: Thyroid normal Resp: Auscultation: clear to auscultation bilaterally Cardio: Rate: regular rate Rhythm: regular rhythm GI: Inspection: Yes normal to inspection and No distended Palpation (GI): No hepatosplenomegaly present Auscultation: normal bowel sounds Skin: General skin exam: elasticity normal, turgor normal and dry skin Neuro: General: patient oriented x3 Course Course Course Narrative: 55-year-old female is here today for complaint of dizziness. Patient reports to have symptoms of rhinitis, denies syncope, presyncope. Patient denies any headaches, nausea or vomiting. Patient reports that she had been feeling like this for the last couple days. Denies any other symptoms. Denies any fever or chills, no ill contacts. Symptoms are not worse with movement or standing up. Patient reports ringing in her ear few days ago. No pain or discomfort now. Exam shows left ER if fusion. Will send her home with Augmentin, Flonase and Zyrtec. Patient is agreeable to this plan and verbalizes understanding of instructions to ask questions and all questions answered. Patient was instructed to return to emergency department if her symptoms will get worse or if she will experience any additional concerning symptoms Discharge Plan Discharge Clinical Impression: Dizziness, Seasonal allergies Otitis media Qualifiers: Otitis media type: unspecified Chronicity: acute Qualified Code(s): H66.90 - Otitis media, unspecified, unspecified ear Sinusitis Qualifiers: Sinusitis location: maxillary Chronicity: acute Recurrence: not specified as recurrent Qualified Code(s): J01.00 - Acute maxillary sinusitis, unspecified Patient Disposition: Home, Self-Care Instructions: Ear Infection (ED), Rhinosinusitis (ED), Allergies (ED) Additional Instructions: You were seen here today after you have were feeling dizzy for last few days. You have left your infection. There is fluid behind the ear which means that you need to take Flonase every day and allergy medication. Please follow-up with your primary care provider in 2-3 days. You will be put on antibiotic so please finish all your antibiotics. You may return to emergency department if your symptoms were worse or fever experience any additional concerning symptoms Prescriptions: New fluticasone propionate [Allergy Relief (fluticasone)] 50 mcg/actuation spray,suspension 1 spray intranasal BID Qty: 16 RF: 0 amoxicillin-pot clavulanate [Augmentin] 875-125 mg tablet 1 tab PO BID 7 Days Qty: 14 RF: 0 Zyrtec 10 mg capsule 10 mg PO DAILY PRN (Reason: allergy symptoms) Qty: 20 RF: 0 No Action lorazepam 0.5 mg tablet 0.5 mg PO BEDTIME PRN (Reason: anxiety) 30 Days Qty: 30 RF: 0 ondansetron HCl [Zofran] 4 mg tablet 4 mg PO Q8H PRN (Reason: nausea and vomiting) Qty: 10 RF: 0 Referrals: Alecia Godfrey MD [Primary Care Provider] - 2 days Interventions: ED Discharge Assessment Last Done: 04/02/21 16:11 Discharge Date/Time: 04/02/21 16:13
[2021-04-02 15:08] VITALS: BP 191/99; PULSE 74
[2021-04-02 15:09] VITALS: BP 188/103; PULSE 70
[2021-04-02] MEDS: Amoxicillin/Potassium Clav 875 MG TABLET PO (15:51)
== END 2021-04-02 16:13 | disposition home or self-care (01) ==
PROVIDERS: Emergency Provider Emergency Medicine; PCP Internal Medicine
DX: J01.00 Acute maxillary sinusitis, unspecified (principal); R42 Dizziness and giddiness; F41.9 Anxiety disorder, unspecified; Z79.899 Other long term (current) drug therapy
CPT/HCPCS: 99283

== ENCOUNTER 2021-04-10 13:26 | Emergency (ER) | payer MEDICAID, SELFPAY ==
--- NOTE | ~2021-04-10 | XR_ITS ---
EXAMINATION: XR CHEST CLINICAL INFORMATION: Dizziness COMPARISON: Previous chest x-rays most recent April 2019 TECHNIQUE: Frontal view of the chest was obtained. FINDINGS: No significant abnormality is noted involving the heart, lungs, mediastinum, bony thorax or soft tissues. XR/XR chest 1V IMPRESSION: Unremarkable examination.
--- NOTE | ~2021-04-10 | CT_ITS ---
EXAMINATION: CT HEAD WITHOUT CONTRAST CLINICAL INFORMATION: 60 history of dizziness COMPARISON: 03/17/2019 TECHNIQUE: Contiguous axial imaging was performed from the skull base to vertex without intravenous administration of contrast. This CT examination was performed using dose optimization techniques as appropriate, variously including the following: *Automated exposure control *Adjustment of mA and/or kV according to patient size (this includes techniques or standardized protocols for targeted exams where dose is matched to indication/reason for exam; i.e. extremities or head) *Use of iterative reconstruction technique DLP: 643 mGy-cm FINDINGS: There is no evidence of acute intracranial hemorrhage or territorial infarction. No abnormal mass effect or midline shift is seen. [place] to white matter differentiation is well preserved. No extra-axial fluid collections are identified. The ventricles are normal in size. There is no abnormal attenuation within the brain parenchyma. The osseous structures and soft tissues are normal. The mastoid air cells and visualized portions of the paranasal sinuses are well aerated. CT/CT head/brain wo con IMPRESSION: No acute intracranial pathology.
[2021-04-10 13:56] VITALS: BP 146/84; PULSE 63; RESP 18; TEMP 37.3; O2SAT 98; BMI 21.9
--- NOTE | 2021-04-10 16:01 | ECG_ITS ---
Test Reason : DIZZINESS Blood Pressure : / mmHG Vent. Rate : 055 BPM Atrial Rate : 055 BPM P-R Int : 186 ms QRS Dur : 098 ms QT Int : 470 ms P-R-T Axes : 074 061 071 degrees QTc Int : 449 ms Sinus bradycardia Otherwise normal ECG When compared with ECG of 23-OCT-2020 09:52, No significant change was found Referred By: Ashleigh Blackwell Electronically Signed By:MONTY ROSE
[2021-04-10 16:21] LABS: MANUAL DIFF FLAG NO
[2021-04-10 16:22] LABS: Basophils Percent Auto 0.2 % (0-2); Eosinophils Absolute Auto 0.1 X10*3/uL (0.0-0.4); Eosinophils Percent Auto 1.9 % (0-4); Hematocrit 35.8 % (37-47); Hemoglobin 11.6 g/dl (12.0-16.0); Imm Gran Abs Auto 0.01 X10*3/uL (0.00-0.03); Imm Gran Pct Auto 0.2 % (0.0-0.4); Lymphocytes Absolute Auto 1.7 X10*3/uL (1.2-4.9); Lymphocytes Percent Auto 31.9 % (20-40); Mean Corpuscular HGB Conc 32.4 g/dl (31.0-35.0); Mean Corpuscular Hemoglobin 28.2 pg (27.0-33.0); Mean Corpuscular Volume 87.1 fL (80-98); Mean Platelet Volume 9.8 fL (9.4-12.3); Monocytes Absolute Auto 0.5 X10*3/uL (0.1-1.2); Monocytes Percent Auto 9.5 % (2-11); Neutrophils Absolute Auto 2.9 X10*3/uL (2.0-8.3); Neutrophils Percent Auto 56.3 % (45-73); Platelet Count 194 X10*3/uL (160-400); Red Blood Count 4.11 X10*6/uL (4.20-5.50); Red Cell Distribution Width 12.5 % (11.0-16.0); White Blood Count 5.2 X10*3/uL (4.8-10.8)
[2021-04-10 16:23] VITALS: BP 157/81; PULSE 60; RESP 16; TEMP 36.8; O2SAT 100
[2021-04-10 16:25] VITALS: BP 159/81; PULSE 56
[2021-04-10 16:26] VITALS: BP 160/87; BP 168/88; PULSE 57; PULSE 60
[2021-04-10 16:27] LABS: Prothrombin Time 11.7 SEC (9.9-13.0)
[2021-04-10] MEDS: Meclizine HCl 25 MG TABLET 50 MG PO (16:36)
[2021-04-10] MEDS: Ondansetron ODT 4 MG TAB.RAPDIS TRANSLINGU (16:36)
[2021-04-10 16:39] LABS: Alanine Aminotransferase 12 U/L (0-31); Albumin Level 4.4 g/dL (3.5-5.0); Alkaline Phosphatase 87 U/L (39-117); Anion Gap 11 (12-20); Aspartate Amino Transferase 18 U/L (5-31); Bilirubin Total 0.3 mg/dL (0.0-1.0); Blood Urea Nitrogen 11 mg/dL (9-16); Calcium 9.6 mg/dL (8.4-10.2); Carbon Dioxide 28 mmol/L (22-29); Chloride 107 mmol/L (96-108); Creatinine Clr Calc Pharmacy 67.9; Estimated Glomerular Filt Rate > 60; Glucose Random 75 mg/dL (60-115); Magnesium 2.4 mg/dL (1.6-2.6); Potassium 4.4 mmol/L (3.3-5.1); Sodium 142 mmol/L (135-145); Total Protein 7.9 g/dL (6.5-8.0)
[2021-04-10 16:45] LABS: Troponin-I High Sensitivity < 3.5 ng/L (<3.5-17.0)
[2021-04-10 16:55] LABS: Appearance Urine CLEAR; Color Urine YELLOW; Glucose Urine UA NEG (NEG); Leukocyte Esterase Urine TRACE (NEG); Nitrite Urine NEG (NEG); Specific Gravity - Urine 1.015 (1.005-1.025); UACC Culture Trigger YES; Urine Blood NEG (NEG); Urine Ketones NEG (NEG); Urine Protein NEG (NEG-TRACE)
--- NOTE | 2021-04-10 16:59 | ED.DIZZY ---
HPI - Dizziness General Chief Complaint: Dizziness Stated Complaint: DIZZY Time Seen by Provider: 04/10/21 15:30 Source: patient Mode of arrival: ambulatory Limitations: no limitations History of Present Illness HPI Narrative: 55-year-old female with a past medical history of vertigo, anxiety, depression, GERD, anemia, migraine headaches and arthritis presenting to the ED with complaints of intermittent dizziness for the past 6 days that is progressively worsening. She reports that she was seen here for same complaint last week although she also had associated left ear pain and was sent home with fluconazole nasal spray, Augmentin and Zyrtec and she reports she is taking as prescribed and took the 7 day course of the antibiotic and no symptomatic relief therefore she came here for further evaluation treatment. She reports now she is having pain to the right ear as well and she developed some nasal congestion. She reports that the dizziness is worse with change in position or movement or ambulation or when she Sniffing from her nose trying to clear her sinuses. Patient denies any head trauma, CO2 exposure, any tick bites that she is aware of, changes in vision, jaw pain, paresthesias, chest pain, shortness breath, dyspnea on exertion, orthopnea, palpitations, nausea/vomiting/diarrhea, abdominal pain, back pain, dysuria, hematuria, black or bloody stools, focal weakness, general weakness, recent travel or sick contacts, history of PE or DVT, hypercoagulation disorder, recent immobilization or surgery, or any other symptoms complaints or concerns at this time. MD elicited complaint: dizziness Onset (ago): day(s) (Six days) Timing: gradual onset and intermittent Severity: moderate Context: change in body position History of similar symptoms: No Exacerbating factors: movement/ambulation, change in body position and other (Sniffing from her nose trying to clear her sinuses) Relieving factors: nothing Associated symptoms: denies other symptoms Related Data Previous Rx's Medication Instructions Recorded lorazepam 0.5 mg tablet 0.5 mg PO BEDTIME PRN 30 Days #30 08/02/20 tab ondansetron HCl 4 mg tablet 4 mg PO Q8H PRN #10 tab 10/23/20 (Zofran) amoxicillin 875 mg-potassium 1 tab PO BID 7 Days #14 tab 04/02/21 clavulanate 125 mg tablet (Augmentin) cetirizine 10 mg capsule (Zyrtec) 10 mg PO DAILY PRN #20 cap 04/02/21 fluticasone propionate 50 1 spray INTRANASAL BID #16 g 04/02/21 mcg/actuation nasal spray,suspension (Allergy Relief (fluticasone)) hydrochlorothiazide 25 mg tablet 25 mg PO DAILY 30 Days #30 tab 04/10/21 Allergies Allergy/AdvReac Type Severity Reaction Status Date / Time lactose [LACTOSE] Allergy Severe DIARRHEA Verified 04/10/21 13:56 aspirin [Aspirin] Allergy Unknown UPSET Verified 04/10/21 13:56 STOMACH cheese Allergy Unknown Diarrhea Uncoded 04/10/21 13:56 milk Allergy Unknown Diarrhea Uncoded 04/10/21 13:56 Review of Systems Review of Systems: Constitutional : No Fever, No Chills, No Night Sweats, No Fatigue, No Malaise ENT/Mouth : Positive bilateral ear pain, positive nasal congestion/rhinorrhea, No sore throat Eyes: No Eye Pain, No Swelling, No Redness, No Foreign Body, No Discharge, No Vision Changes Cardiovascular : No Chest Pain, No SOB, No Dyspnea on Exertion, No Orthopnea, No Palpitations Respiratory : No Cough, No Sputum, No Wheezing, No Dyspnea Gastrointestinal : No Nausea, No Vomiting, No Diarrhea, No Constipation, No abdominal Pain, No Hematochezia, No Melena Genitourinary : No Dysuria, No Urinary Frequency, No Urinary Incontinence, No Urgency, No Flank Pain Musculoskeletal : No joint pain, No Myalgias Skin : No lacerations Neuro : Positive dizziness, positive intermittent headaches, No Focal weakness, no general weakness, No Numbness, No Paresthesias, No Loss of Consciousness Yes all other systems are reviewed and are negative [facility] Past Medical History Attestation statement: The following information was validated with the patient. Medical History Anxiety Depression GERD (gastroesophageal reflux disease) Social History Social History Alcohol intake: never Advance Directives: Yes Advance Directives Information Provided: No Advance Directives on File: No Physical Exam Vital Signs: Vital Signs: Last Vital Signs Temp 97.4 F 04/10/21 18:00 Pulse 55 04/10/21 18:00 Resp 16 04/10/21 18:00 BP 172/85 H 04/10/21 18:00 Pulse Ox 100 04/10/21 18:00 Body Mass Index 21.9 Vital signs have been reviewed as normal and appeared to be correct. Blood pressure hypertensive 146/84 Heart rate normal. Respiration rate normal. Temperature normal. Oxygen saturation normal. Appearance: Alert. Oriented X3. No acute distress. Head: Normal external exam. Normocephalic. Atraumatic. Able to rotate head bilaterally. Eyes: PERRLA. EOMI. No nystagmus noted. Conjunctiva and sclera normal. Eyelids normal. Corneal reflex normal. ENT: EAC normal. TM's Normal. I do not appreciate any fluid behind the tympanic membranes. Hearing normal. Pharynx normal. Uvula midline. tongue midline. Moist mucous membranes. No trismus noted. No drooling noted. No muffled voice noted. No nystagmus noted. Neck: Normal inspection. Neck supple. FROM. No adenopathy. Trachea midline. Thyroid Normal. No meningeal signs. No neck mass noted. CVS: Normal heart rate and rhythm. Heart sound normal. No murmurs noted. Pulses normal throughout. Respiratory: No respiratory distress. Painless inspiration. Breath sounds normal. No wheezes/rales/rhonchi noted. Chest nontender. No accessory muscle usage noted or decreased air movement noted. Abdomen: Soft and nontender. Bowel sounds normal in all 4 quadrants. No distention noted. No organomegaly noted. No visible injury noted. Back: No CVA tenderness. Full range of motion noted. Skin: Skin warm and dry. Normal skin color. Normal skin turgor. No rashes/lesions/lacerations noted. Extremities: No lower extremity edema. Extremities exhibit normal range of motion. Extremities nontender. Able to shrug shoulders bilaterally and keep up against resistance. Neuro: Oriented X 3. No motor deficit. No sensory deficit. Reflexes normal. Moving all extremities. No focal motor deficits. Cranial nerves II-XI intact bilaterally. Facial strength normal. Normal cognition. Speech normal. Gait normal. Strength 5/5 throughout. No pronator drift. No tremor noted. No fasciculations noted. No rigidity noted. Muscle tone normal throughout. No asterixis noted. [id number] test normal. Heel to boss test normal. Tandem gait normal. Does not sway with eyes open. Romberg test negative. Rapid alternating movement upper extremity normal. Rapid alternating movement lower extremity normal. Hand drop from overhead Misses face. NIHSS score 0. Course Course Course Narrative: 16pm - 55-year-old female with a past medical history of vertigo presenting to the ED with complaints of intermittent dizziness for the past 6 days that is progressively worsening with associated headaches, bilateral ear pain and nasal congestion/rhinorrhea. Despite taking the symptomatic treatment that she was given here which include antibiotics/Zyrtec and fluconazole. - On exam patient is alert oriented x3. Not in any acute distress. Mildly hypertensive 146/84 otherwise all other vitals are within normal limits. No focal know the abdomen noted. Normal steady gait. NIH SS score 0. Patient has non disabling symptoms therefore no indication for tPA and her symptoms started 6 days ago. Lungs clear to auscultation. CV RRR. Abdomen is soft and nontender. No lower extremity edema or calf tenderness is noted. Plan: Labs, CT scan of brain, EKG, chest x-ray, COVID swab, UA, orthostatic vitals. Provide 4 mg of Zofran and 50 mg of meclizine then re-evaluate. Reevaluation(s) Reevaluation #1: - labs obtained and patient mild baseline anemia similar when compared to prior. Otherwise all other labs are within normal limits including troponin. UA with trace of leukocytes will wait for urine culture as patient denies any urinary symptoms. COVID/RSV/flu is negative. CXR WNL no acute Processes were noted. CT scan of brain without contrast negative for any acute processes. EKG was sinus bradycardia with ventricular rate of 55 with a normal HI interval normal QRS duration normal QT/QTC interval. No acute ischemic change are noted. - patient reports no improvement with the meclizine. Therefore I spoke to Dr. Schaffer and he reported that we can start the patient on a low-dose of hydrochlorothiazide for 1 month 25 mg to change the viscosity of the fluid in the inner ear. And instructions to have the patient follow-up within 30 days with her PCP and if the hydrochlorothiazide helped her dizziness her PCP should possibly start her on a low dose as well. Patient and daughter at bedside understand and agree this plan. Time: 18:42 [facility] - Dizziness Medical Records Attestation: I reviewed the patient's medical records. Lab Data Attestation: I reviewed the patient's lab results. Result diagrams: 04/10/21 16:15 04/10/21 16:15 Labs: Lab Results 04/10/21 04/10/21 04/10/21 Range/Units 16:12 16:15 16:15 WBC 5.2 (4.8-10.8) X10*3/uL RBC 4.11 L (4.20-5.50) X10*6/uL Hgb 11.6 L (12.0-16.0) g/dl Hct 35.8 L (37-47) % MCV 87.1 (80-98) fL MCH 28.2 (27.0-33.0) pg MCHC 32.4 (31.0-35.0) g/dl RDW 12.5 (11.0-16.0) % Plt Count 194 (160-400) X10*3/uL MPV 9.8 (9.4-12.3) fL Immature Gran % (Auto) 0.2 (0.0-0.4) % Neut % (Auto) 56.3 (45-73) % Lymph % (Auto) 31.9 (20-40) % [place] % (Auto) 9.5 (2-11) % Eos % (Auto) 1.9 (0-4) % Baso % (Auto) 0.2 (0-2) % Lymph # (Auto) 1.7 (1.2-4.9) X10*3/uL [place] # (Auto) 0.5 (0.1-1.2) X10*3/uL Eos # (Auto) 0.1 (0.0-0.4) X10*3/uL Baso # (Auto) 0.0 (0.0-0.2) X10*3/uL Abs Immat Gran (auto) 0.01 (0.00-0.03) X10*3/uL Absolute Neuts (auto) 2.9 (2.0-8.3) X10*3/uL Absolute Nucleated RBC 0.000 (0.0-0.012) X10*3/uL Nucleated RBC % (auto) 0.0 (0.0-0.2) /100WBC PT 11.7 (9.9-13.0) SEC INR 1.0 (0.9-1.1) Sodium (135-145) mmol/L Potassium (3.3-5.1) mmol/L Chloride (96-108) mmol/L Carbon Dioxide (22-29) mmol/L Anion Gap (12-20) BUN (9-16) mg/dL Creatinine (0.5-1.4) mg/dL Estim Creat Clear Calc Estimated GFR Random Glucose (60-115) mg/dL Calcium (8.4-10.2) mg/dL Magnesium (1.6-2.6) mg/dL Total Bilirubin (0.0-1.0) mg/dL AST (5-31) U/L ALT (0-31) U/L Alkaline Phosphatase (39-117) U/L Troponin I High Sens (<3.5-17.0) ng/L Total Protein (6.5-8.0) g/dL Albumin (3.5-5.0) g/dL Urine Color Urine Appearance Urine pH (5.0-8.0) Ur Specific [place] (1.005-1.025) Urine Protein (NEG-TRACE) MG/DL Urine Glucose (UA) (NEG) MG/DL Urine Ketones (NEG) MG/DL Urine Blood (NEG) Urine Nitrite (NEG) Ur Leukocyte Esterase (NEG) Urine RBC (0) /HPF Urine WBC (0-4) /HPF Ur Squamous Epith Cells /LPF Urine Bacteria /LPF Coronavirus (PCR) NEGATIVE (Negative) Influenza Type A (PCR) NEGATIVE (Negative) Influenza Type B (PCR) NEGATIVE (Negative) RSV RNA Qual (PCR) NEGATIVE (Negative) 04/10/21 04/10/21 04/10/21 Range/Units 16:15 16:15 16:38 WBC (4.8-10.8) X10*3/uL RBC (4.20-5.50) X10*6/uL Hgb (12.0-16.0) g/dl Hct (37-47) % MCV (80-98) fL MCH (27.0-33.0) pg MCHC (31.0-35.0) g/dl RDW (11.0-16.0) % Plt Count (160-400) X10*3/uL MPV (9.4-12.3) fL Immature Gran % (Auto) (0.0-0.4) % Neut % (Auto) (45-73) % Lymph % (Auto) (20-40) % [place] % (Auto) (2-11) % Eos % (Auto) (0-4) % Baso % (Auto) (0-2) % Lymph # (Auto) (1.2-4.9) X10*3/uL [place] # (Auto) (0.1-1.2) X10*3/uL Eos # (Auto) (0.0-0.4) X10*3/uL Baso # (Auto) (0.0-0.2) X10*3/uL Abs Immat Gran (auto) (0.00-0.03) X10*3/uL Absolute Neuts (auto) (2.0-8.3) X10*3/uL Absolute Nucleated RBC (0.0-0.012) X10*3/uL Nucleated RBC % (auto) (0.0-0.2) /100WBC PT (9.9-13.0) SEC INR (0.9-1.1) Sodium 142 (135-145) mmol/L Potassium 4.4 (3.3-5.1) mmol/L Chloride 107 (96-108) mmol/L Carbon Dioxide 28 (22-29) mmol/L Anion Gap 11 L (12-20) BUN 11 (9-16) mg/dL Creatinine 0.74 (0.5-1.4) mg/dL Estim Creat Clear Calc 67.9 Estimated GFR > 60 Random Glucose 75 (60-115) mg/dL Calcium 9.6 (8.4-10.2) mg/dL Magnesium 2.4 (1.6-2.6) mg/dL Total Bilirubin 0.3 (0.0-1.0) mg/dL AST 18 (5-31) U/L ALT 12 (0-31) U/L Alkaline Phosphatase 87 (39-117) U/L Troponin I High Sens < 3.5 (<3.5-17.0) ng/L Total Protein 7.9 (6.5-8.0) g/dL Albumin 4.4 (3.5-5.0) g/dL Urine Color YELLOW Urine Appearance CLEAR Urine pH 6.0 (5.0-8.0) Ur Specific [place] 1.015 (1.005-1.025) Urine Protein NEG (NEG-TRACE) MG/DL Urine Glucose (UA) NEG (NEG) MG/DL Urine Ketones NEG (NEG) MG/DL Urine Blood NEG (NEG) Urine Nitrite NEG (NEG) Ur Leukocyte Esterase TRACE H (NEG) Urine RBC 0-2 (0) /HPF Urine WBC 1-4 (0-4) /HPF Ur Squamous Epith Cells 2+ /LPF Urine Bacteria NONE /LPF Coronavirus (PCR) (Negative) Influenza Type A (PCR) (Negative) Influenza Type B (PCR) (Negative) RSV RNA Qual (PCR) (Negative) Imaging Data Chest x-ray: Attestation: I personally reviewed and interpreted this imaging study as follows: Radiologist's impression: FINDINGS: No significant abnormality is noted involving the heart, lungs, mediastinum, bony thorax or soft tissues. XR/XR chest 1V IMPRESSION: Unremarkable examination. CT scan of brain without contrast: Attestation: I personally reviewed and interpreted this imaging study as follows: Radiologist's impression: FINDINGS: There is no evidence of acute intracranial hemorrhage or territorial infarction. No abnormal mass effect or midline shift is seen. [place] to white matter differentiation is well preserved. No extra-axial fluid collections are identified. The ventricles are normal in size. There is no abnormal attenuation within the brain parenchyma. The osseous structures and soft tissues are normal. The mastoid air cells and visualized portions of the paranasal sinuses are well aerated. ? CT/CT head/brain wo con IMPRESSION: No acute intracranial pathology. ECG Data Attestation: I personally reviewed and interpreted this ECG as follows: ECG interpretation date: 04/10/21 ECG interpretation time: 16:24 Interpretation: Sinus bradycardia with a ventricular rate of 55 with a normal HI interval normal QRS duration normal QT/QTC interval. No acute ischemic changes are noted. Similar when compared to prior EKG on 10/23/2020. Critical Care Time Critical Care Time Critical Care Time: Yes Total Critical Care Time: 60 Attestation: I personally attest to this time spent taking care of the patient Discharge Plan Discharge Clinical Impression: Vertigo Patient Disposition: Home, Self-Care Instructions: Vertigo (ED), Dizziness (ED) Prescriptions: New hydrochlorothiazide 25 mg tablet 25 mg PO DAILY 30 Days Qty: 30 RF: 0 No Action lorazepam 0.5 mg tablet 0.5 mg PO BEDTIME PRN (Reason: anxiety) 30 Days Qty: 30 RF: 0 ondansetron HCl [Zofran] 4 mg tablet 4 mg PO Q8H PRN (Reason: nausea and vomiting) Qty: 10 RF: 0 fluticasone propionate [Allergy Relief (fluticasone)] 50 mcg/actuation spray,suspension 1 spray intranasal BID Qty: 16 RF: 0 amoxicillin-pot clavulanate [Augmentin] 875-125 mg tablet 1 tab PO BID 7 Days Qty: 14 RF: 0 Zyrtec 10 mg capsule 10 mg PO DAILY PRN (Reason: allergy symptoms) Qty: 20 RF: 0 Referrals: Alecia Godfrey MD [Primary Care Provider] - 2 days Print Language: Lithuanian
[2021-04-10 17:48] LABS: RBC Urine 0-2 /HPF (0); Squamous Epithelial Cell Urine 2+ /LPF
[2021-04-10 17:56] LABS: Influenza A PCR NEGATIVE (Negative); Influenza B PCR NEGATIVE (Negative); Resp Syncy Virus RNA Qual PCR NEGATIVE (Negative); SARS COV2 PCR INHOUSE NEGATIVE (Negative)
[2021-04-10 18:00] VITALS: BP 172/85; PULSE 55; RESP 16; TEMP 36.3; O2SAT 100
--- NOTE | 2021-04-10 18:03 | PC.NURSE ---
RN IS AWARE OF PATIENT HIGH BLOOD PRESSURE .
[2021-04-10] MEDS: hydroCHLOROthiazide 25 MG TABLET PO (18:49)
--- NOTE | 2021-04-10 18:56 | PC.NURSE ---
PT REEVALED BY GERARDO NASH. BP ELEVATED. HCTZ GIVEN. PT A/OX3, NEUROS INTACT.
== END 2021-04-10 19:05 | disposition home or self-care (01) ==
PROVIDERS: Physician Assistant Medical; Emergency Provider Emergency Medicine Emergency Medical Services; PCP Internal Medicine
DX: R42 Dizziness and giddiness (principal); F41.1 Generalized anxiety disorder; Z79.899 Other long term (current) drug therapy; Z20.822 Contact with and (suspected) exposure to COVID-19
CPT/HCPCS: 0241U; 36415; 70450; 71045; 80053; 81001; 83735; 84484; 85025; 85610; 87086; 93005; 99284

== ENCOUNTER 2021-06-02 03:29 | Emergency (ER) | payer OTHER, SELFPAY ==
[2021-06-02 03:52] VITALS: BP 137/76; PULSE 65; RESP 16; TEMP 36.6; O2SAT 100; BMI 24.5
--- NOTE | 2021-06-02 04:04 | PC.NURSE ---
PT TO ROOM WITH C/O ABD PAIN WHICH STARTED APPROX 1 WEEK AGO. PT TO ED, CHG INTO GOWN AND AWAITING FOR MD'S EVAL.
--- NOTE | 2021-06-02 04:34 | PC.NURSE ---
this tech assisted Dr Ledbetter with rectal exam.
[2021-06-02] MEDS: Mineral OiL enema 133 ML ENEMA PR (04:50)
--- NOTE | 2021-06-02 06:03 | PC.NURSE ---
ENEMA INSERTED W/O DIFFICULTY. COMMODE AT BEDSIDE. PT UP AND HAD 3-4 HARD STOOL. MD AWARE.
--- NOTE | 2021-06-02 06:56 | ED_ITS ---
HPI - Abdominal Pain General Chief Complaint: Abdominal Pain Stated Complaint: Constipation Time Seen by Provider: 06/02/21 04:12 Source: patient Mode of arrival: ambulatory Limitations: no limitations History of Present Illness HPI narrative: 55-year-old female who presents emergency department for evaluation of constipation x1 week. She states that this is unusual for to be constipated. She states that she has taken multiple doses of senna without any relief of her symptoms. She states that she is having pain in her left lower abdomen and in her rectal area. She describes his pain as a constant, pressure- like pain as if she needs to move her bowels but she is unable to pass any stool. She denied fever, chills, nausea, vomiting, chest pain or shortness of breath. Related Data Previous Rx's Medication Instructions Recorded ondansetron HCl 4 mg tablet 4 mg PO Q8H PRN #10 tab 10/23/20 (Zofran) fluticasone propionate 50 1 spray INTRANASAL BID #16 g 04/02/21 mcg/actuation nasal spray,suspension (Allergy Relief (fluticasone)) omeprazole 20 mg capsule,delayed 20 mg PO DAILY 90 Days #90 cap 04/12/21 release lorazepam 0.5 mg tablet 0.5 mg PO BEDTIME PRN 30 Days #30 05/14/21 tab cetirizine 10 mg capsule (Zyrtec) 10 mg PO DAILY PRN #20 cap 05/24/21 hydrochlorothiazide 25 mg tablet 25 mg PO DAILY 90 Days #90 tab 05/24/21 Allergies Allergy/AdvReac Type Severity Reaction Status Date / Time lactose [LACTOSE] Allergy Severe DIARRHEA Verified 04/10/21 13:56 aspirin [Aspirin] Allergy Unknown UPSET Verified 04/10/21 13:56 STOMACH cheese Allergy Unknown Diarrhea Uncoded 04/10/21 13:56 milk Allergy Unknown Diarrhea Uncoded 04/10/21 13:56 Review of Systems Review of Systems Yes all other systems are reviewed and are negative Physical Exam Vital Signs: Vital Signs: Last Vital Signs Temp 97.8 F 06/02/21 03:52 Pulse 65 06/02/21 03:52 Resp 16 06/02/21 03:52 BP 137/76 06/02/21 03:52 Pulse Ox 100 06/02/21 03:52 Body Mass Index 24.5 Const: General: cooperative and no acute distress Orientation/consciousness: oriented to person and oriented to place Limitations: no limitations HENMT: Head: Yes normal to inspection, Yes normocephalic and Yes atraumatic Ears: external ears normal General nose exam: Normal external nose present Face and sinus: Yes normal facial exam Mouth: Normal oral and palatal mucosa present Throat: Yes posterior oropharynx normal Eyes: General: appearance normal, both eyes and all related structures Pupils: Equal, round and reactive pupils present Neck: Neck: Yes normal visual inspection, Yes no lymphadenopathy, Yes trachea midline and Yes supple Chest: Chest palpation & inspection: normal inspection of the chest and normal palpation of entire chest wall Resp: Effort & Inspection: normal respiratory effort and able to speak in complete sentences Auscultation: clear to auscultation bilaterally Cardio: Rate: regular rate Rhythm: regular rhythm Heart sounds: S1 normal heart sound present, S2 normal heart sound present and no murmurs GI: Inspection: Yes normal to inspection Palpation (GI): Soft to palpation, Tenderness to palpation present (GI) in the LLQ (Moderate) and no guarding Auscultation: normal bowel sounds Rectal Exam - Female: normal sphincter tone and fecal impaction : General: Yes no CVA tenderness Back/Spine/Pelvis: Back: no CVA tenderness Skin: General skin exam: no rashes or lesions noted Neuro: General: oriented to person and oriented to place Cranial nerves: Yes CN's II-XII intact bilaterally and Yes Equal, round and reactive pupils present Cognition (Neuro): normal cognition Motor exam (neuro): 5/5 motor strength present throughout Extrem: General: Yes normal to inspection Psych: Appearance: grossly normal Speech and movement: Normal speech and movement present Affect: normal affect Attitude: cooperative Thought process: Normal thought process present Thought content: Normal thought content present Procedures Rectal Disimpaction Time out performed rectal disimpaction: No Indication: fecal impaction Procedural Sedation: No Technique: manual disimpaction with gloved finger Result: significant stool output Patient Tolerated Procedure: well Complications: none Course Course Course Narrative: 55-year-old female who presents emergency department for evaluation constipation x1 week, left lower quadrant abdominal pain and rectal pain. Vital signs were normal. Rectal exam in revealed large amount of hard stool in the patient's rectum. Patient had stool which was Hemoccult negative. The patient was manually disimpacted by me, after disimpaction she was given a Fleet's enema. The patient had several large bowel movements here in the emergency department. Patient was given a bowel regimen of [id number] medications to take at home. Patient was given printed and verbal instructions and discharged home. Discharge Plan Discharge Clinical Impression: Constipation Patient Disposition: Home, Self-Care Instructions: Constipation (ED) Additional Instructions: The you had a large amount of hard stool in your rectum which was causing fecal impaction. You were manually disimpacted here in the emergency department We also give you a Fleet's enema here in the emergency department. For constipation take the following medications: Colace 1 pill twice a day, this is stool softener. You should stay on this for least 1 month. Metamucil powder, 1 tsp dissolved in 8 oz of water every morning and at night for 1 month. If you do not have a good bowel movement 3-4 days take extra-strength Senokot 1 tablet twice a day for 4 days. If you do not move your bowels after 4 days then use a Fleet's enema. Follow-up with your doctor in 2 days. Please return to the emergency department if your symptoms get worse or if you develop any symptoms that are concerning to you. Prescriptions: No Action omeprazole 20 mg capsule,delayed release(DR/EC) 20 mg PO DAILY 90 Days Qty: 90 RF: 1 lorazepam 0.5 mg tablet 0.5 mg PO BEDTIME PRN (Reason: anxiety) 30 Days Qty: 30 RF: 0 Zyrtec 10 mg capsule 10 mg PO DAILY PRN (Reason: allergy symptoms) Qty: 20 RF: 0 hydrochlorothiazide 25 mg tablet 25 mg PO DAILY 90 Days Qty: 90 RF: 0 ondansetron HCl [Zofran] 4 mg tablet 4 mg PO Q8H PRN (Reason: nausea and vomiting) Qty: 10 RF: 0 fluticasone propionate [Allergy Relief (fluticasone)] 50 mcg/actuation spray,suspension 1 spray intranasal BID Qty: 16 RF: 0 PMFSH Past Medical History PMFSH Narrative: Past medical history: GERD, depression, anxiety, arthritis, migraines, anemia. Past surgical history: None. Social history: She denies tobacco use. She states that she occasionally drinks alcohol. She denies drug use. Medical History Anxiety Depression GERD (gastroesophageal reflux disease) Social History Social History Alcohol intake: never Advance Directives: No Advance Directives Information Provided: No
== END 2021-06-02 08:10 | disposition home or self-care (01) ==
PROVIDERS: Emergency Provider Emergency Medicine Emergency Medical Services
DX: K59.00 Constipation, unspecified (principal); Z79.899 Other long term (current) drug therapy
CPT/HCPCS: 99283; 99284

== ENCOUNTER 2021-06-11 11:01 | Outpatient (REF) | payer OTHER, SELFPAY ==
--- NOTE | ~2021-06-11 | MM_ITS ---
EXAMINATION: MM SCREENING DIGITAL BREAST TOMOSYNTHESIS, BILATERAL CLINICAL INFORMATION: Screening. Asymptomatic. The lifetime risk of breast cancer based on the Tyrer-Cuzick Model is 5%. COMPARISON: Mammography: 02/18/2020, 12/08/2015 TECHNIQUE: Digital breast tomosynthesis is performed in both the craniocaudal and mediolateral oblique views along with computer-aided detection (CAD). Synthesized 2D images are generated from the tomosynthesis. FINDINGS: There are scattered areas of fibroglandular density (ACR BI-RADS breast composition Category b). There are no significant masses, abnormal calcifications, or other abnormalities. MM/MM tomosynthesis screening BI IMPRESSION: No mammographic evidence of malignancy. ASSESSMENT: BI-RADS 1: Negative RECOMMENDATION: Routine annual mammography screening. This patient's information was entered into a reminder system with a target due date for their next mammogram.
== END 2021-06-11 11:02 | disposition home or self-care (01) ==
LOC: HO.MAMMO 11:01
PROVIDERS: Visit Provider Internal Medicine
DX: Z12.31 Encounter for screening mammogram for malignant neoplasm of breast (principal)
CPT/HCPCS: 77063; 77067

== ENCOUNTER 2021-12-01 14:42 | Emergency (ER) | payer OTHER, SELFPAY ==
--- NOTE | ~2021-12-01 | CT_ITS ---
EXAMINATION: CT BRAIN AND CT SINUS WITHOUT CONTRAST. CLINICAL INFORMATION: Dizziness and headache. COMPARISON: None TECHNIQUE: 5 mm thin axial and reformatted 2 mm thin sagittal coronal images of brain were obtained. Subsequently axial 2 mm thin and reformatted 1.5 mm thin sagittal and coronal images of sinuses were obtained. DLP 734 mGy/cm. FINDINGS: BRAIN: There is no acute intra-axial, extra-axial bleed, masses or midline shift. There is no acute infarction in evolution. There is no edema. The lateral ventricles are symmetrical in size and configuration without enlargement. Acuña to white matter differentiation is maintained normal. Bone windows reveal no calvarial abnormality. Bilateral paranasal sinuses and mastoid air cells are well-aerated. SINUSES: The paranasal sinuses are well-aerated. The drainage pathways are patent. The bony sinus rocha are intact. There is moderate deviation of nasal septum to the left with a small bony spur. There is paradoxical middle turbinates with yenni bullosa bilaterally. Mild hypertrophy of the inferior turbinates is noted. The nasopharyngeal and nasal cavity airway is widely patent. Visualized bilateral TM joints, mandible, maxilla and the nasal bones are unremarkable. The craniovertebral junction and the C1-C2 alignment is normal. The mastoid sinuses are well-aerated. CT/CT head/brain wo con IMPRESSION: No acute intracranial process seen. Clear sinuses and drainage pathways. Moderate deviation of nasal septum to the left with a bony spur.
--- NOTE | ~2021-12-01 | CT_ITS ---
EXAMINATION: CT BRAIN AND CT SINUS WITHOUT CONTRAST. CLINICAL INFORMATION: Dizziness and headache. COMPARISON: None TECHNIQUE: 5 mm thin axial and reformatted 2 mm thin sagittal coronal images of brain were obtained. Subsequently axial 2 mm thin and reformatted 1.5 mm thin sagittal and coronal images of sinuses were obtained. DLP 734 mGy/cm. FINDINGS: BRAIN: There is no acute intra-axial, extra-axial bleed, masses or midline shift. There is no acute infarction in evolution. There is no edema. The lateral ventricles are symmetrical in size and configuration without enlargement. Acuña to white matter differentiation is maintained normal. Bone windows reveal no calvarial abnormality. Bilateral paranasal sinuses and mastoid air cells are well-aerated. SINUSES: The paranasal sinuses are well-aerated. The drainage pathways are patent. The bony sinus rocha are intact. There is moderate deviation of nasal septum to the left with a small bony spur. There is paradoxical middle turbinates with yenni bullosa bilaterally. Mild hypertrophy of the inferior turbinates is noted. The nasopharyngeal and nasal cavity airway is widely patent. Visualized bilateral TM joints, mandible, maxilla and the nasal bones are unremarkable. The craniovertebral junction and the C1-C2 alignment is normal. The mastoid sinuses are well-aerated. CT/CT sinus wo con IMPRESSION: No acute intracranial process seen. Clear sinuses and drainage pathways. Moderate deviation of nasal septum to the left with a bony spur.
--- NOTE | ~2021-12-01 | XR_ITS ---
EXAMINATION: XR CHEST CLINICAL INFORMATION: Chest pain COMPARISON: Chest x-rays of 04/10/2021 and 05/18/2019 TECHNIQUE: 2 views of the chest were obtained. FINDINGS: The lungs are symmetrically well expanded. Lungs are clear. No evidence of pleural effusions or pneumothorax. Cardiac mediastinal silhouette is normal. Normal appearance of the pulmonary vasculature. No acute osseous abnormality. Minimal degenerative changes are noted in the lower thoracic spine. Visualized upper abdomen is unremarkable. XR/XR chest 2V IMPRESSION: No radiographic evidence of pneumonia. No acute pulmonary process.
[2021-12-01 14:51] VITALS: BP 136/72; BP 138/81; PULSE 62; PULSE 63; RESP 16; TEMP 36.8; O2SAT 100; BMI 21.9
--- NOTE | 2021-12-01 14:57 | ED_ITS ---
HPI - General Adult General Chief complaint: Dizziness Stated complaint: DIZZY,MALAVE X'S 3 WEEKS PER EMS Time Seen by Provider: 12/01/21 14:56 Source: patient Mode of arrival: EMS Limitations: no limitations History of Present Illness HPI narrative: 56-year-old female with a past history of anxiety, depression, sinus headache, vertigo, and GERD presents for headache for the last 3 weeks. Patient has felt dizzy all day, and when she went to the store she felt like she might faint. Patient also had heartburn earlier today but cannot characterize exactly what time it started. No chest pain, no shortness of breath. Patient does feel nauseous, no vomiting. Her headache is in her frontal bilateral sinuses and is intermittent, worse on the left side now. No stiff neck, no fever, no vision abnormalities. No upper respiratory symptoms now, patient did have a cough 3 weeks ago which resolved. She is vaccinated for COVID. Related Data Previous Rx's Medication Instructions Recorded ondansetron HCl 4 mg tablet 4 mg PO Q8H PRN #10 tab 10/23/20 (Zofran) fluticasone propionate 50 1 spray INTRANASAL BID #16 g 04/02/21 mcg/actuation nasal spray,suspension (Allergy Relief (fluticasone)) omeprazole 20 mg capsule,delayed 20 mg PO DAILY 90 Days #90 cap 04/12/21 release hydrochlorothiazide 25 mg tablet 25 mg PO DAILY 90 Days #90 tab 08/05/21 lorazepam 0.5 mg tablet 0.5 mg PO BEDTIME PRN 30 Days #30 08/07/21 tab cetirizine 10 mg capsule (Zyrtec) 10 mg PO DAILY PRN #30 cap 08/22/21 Allergies Allergy/AdvReac Type Severity Reaction Status Date / Time lactose [LACTOSE] Allergy Severe DIARRHEA Verified 12/01/21 14:51 aspirin [Aspirin] Allergy Unknown UPSET Verified 12/01/21 14:51 STOMACH cheese Allergy Unknown Diarrhea Uncoded 04/10/21 13:56 milk Allergy Unknown Diarrhea Uncoded 04/10/21 13:56 Review of Systems Constitutional: Constitutional: Denies body ache(s), Denies chills, Denies fatigue, Denies fever(s), Reports headache(s), Denies malaise and Denies weakness Eyes: Eyes: Denies diplopia ENT: Reports Normal hearing present, Denies vertigo, Reports dizziness, Denies otalgia, Reports headache(s), Denies mouth pain, Denies neck pain, Denies post nasal drip, Denies sinus pain, Denies sinus pressure, Denies sore throat and Denies throat swelling Cardiovascular: Cardiovascular: Denies chest pain, Denies syncope, Denies leg edema, Denies lightheadedness, Denies Loss of Consciousness, Denies palpitations and Denies dyspnea Respiratory: Respiratory: Denies chest congestion, Denies cough and Denies dyspnea Gastrointestinal: Gastrointestinal: Denies abdominal pain, Denies hematochezia, Denies constipation, Denies diarrhea, Reports nausea and Denies vomiting Musculoskeletal: Musculoskeletal: Reports no additional musculoskeletal complaints, Denies back pain, Denies muscle weakness, Denies neck pain and Denies numbness Neurologic: Reports Normal hearing present, Denies Abnormal speech present, Denies confusion, Denies vertigo, Reports dizziness, Denies syncope, Reports headache(s), Denies numbness, Denies Sensory deficit (Neuro) and Denies weakness Psychiatric: Psychiatric: Denies anxiety, Denies confusion and Denies depression Endocrine: Endocrine: Denies fatigue and Denies palpitations Allergic/Immunologic: Allergic/Immunologic: Denies throat swelling PMFSH Past Medical History Medical History Anxiety Depression GERD (gastroesophageal reflux disease) Sinus headache Vertigo Social History Social History Alcohol intake: never Advance Directives: No Advance Directives Information Provided: No Physical Exam ED Vital Signs: Vital Signs - 24 hr 12/01/21 14:51 12/01/21 15:48 12/01/21 15:49 Temperature 98.2 F Pulse Rate 63 56 57 Respiratory Rate 16 Blood Pressure 138/81 129/76 132/79 Pulse Oximetry 100 12/01/21 15:50 12/01/21 15:52 12/01/21 18:29 Temperature Pulse Rate 62 60 57 Respiratory Rate 16 16 Blood Pressure 128/77 128/77 129/72 Pulse Oximetry 100 100 BMI result Body Mass Index 21.9 Const General: comfortable, no acute distress, well developed and alert; No confusion Nutritional Appearance: well nourished Orientation/consciousness: patient oriented x3 and No confusion Limitations: no limitations [facility] Head: Yes normal to inspection, Yes normocephalic and Yes atraumatic Ears: hearing grossly normal bilaterally, external ears normal, TM's normal bilaterally and EAC's normal General nose exam: Normal external nose present Face and sinus: Yes normal facial exam and Yes sinuses nontender Mouth: Normal oral and palatal mucosa present Throat: Yes posterior oropharynx normal Eyes Conjunctivae: conjunctivae normal Pupils: Equal, round and reactive pupils present EOM: EOMs intact bilaterally Neck Neck: Yes full ROM, Yes no lymphadenopathy and Yes supple Resp Effort & Inspection: normal respiratory effort and able to speak in complete sentences Auscultation: clear to auscultation bilaterally, no crackles, no rales, no rhonchi and no wheezes Cardio Rate: regular rate Rhythm: regular rhythm Heart sounds: S1 normal heart sound present and S2 normal heart sound present GI Inspection: Yes normal to inspection Palpation (GI): Soft to palpation, nontender, no guarding and not rigid Percussion: Yes normal to percussion Auscultation: normal bowel sounds Skin General skin exam: no rashes or lesions noted Neuro General: patient oriented x3, gait normal, tone normal, moves all extremities and No confusion Cranial nerves: Yes CN's II-XII intact bilaterally, Yes Facial sensation intact/muscles of mastication intact, Yes Equal, round and reactive pupils present, Yes Normal accommodation reflex present, Yes Bilaterally intact EOM present, Yes Nystagmus not present, Yes Normal facial strength present, Yes Midline tongue present, Yes Normal hearing present, Yes Ability to bilaterally rotate head present and Yes Ability to bilaterally elevate shoulders present Cognition (Neuro): normal cognition Speech: No Abnormal speech present Gait exam (Neuro): Normal gait present Motor exam (neuro): 5/5 motor strength present throughout and Pronator motor function not present Sensory Exam: No Sensory deficit (Neuro) Deep tendon reflexes (DTR's): Right brachioradialis reflex intensity grade: 1+, Left brachioradialis reflex intensity grade: 1+, Right patellar reflex intensity grade: 1+ and Left patellar reflex intensity grade: 1+ Coordination: [id number] test normal and [id number] test normal Romberg Test: Negative Pupils: Normal pupillary reactivity/response: bilateral Extrem General: Yes normal to inspection and Yes full ROM Psych Appearance: grossly normal Affect: normal affect Attitude: cooperative Thought process: Normal thought process present Course Course Course Narrative: 56-year-old female with a past medical history of sinus headaches and vertigo presents for 2 weeks of frontal sinus headache and feeling dizzy earlier today. Patient is a 0 on the Wells score for pulmonary embolism Patient is completely benign neurological exam, she can stand and walk for me with no dizziness. Orthostatics vital signs are negative. Patient has a negative workup, only abnormality is white blood cell count is 4.4 with no bandemia. EKG shows no acute ischemia, 2 troponins are negative [address] is normal, no sinus infection seen on sinus CT. Patient given Tylenol, Zofran, Toradol, Reglan, Benadryl. Patient is endorsing seeing some circles on the rocha. Possible migrainous aura. Patient is able to get up and ambulate, will have her follow-up with a neurologist Reevaluation(s) Reevaluation #1: CT/CT head/brain wo con IMPRESSION: No acute intracranial process seen. Clear sinuses and drainage pathways. Moderate deviation of nasal septum to the left with a bony spur.? XR/XR chest 2V IMPRESSION: No radiographic evidence of pneumonia. No acute pulmonary process. Medical Decision Making Lab Data Result diagrams: 12/01/21 16:04 12/01/21 16:04 Labs: Lab Results 12/01/21 12/01/21 12/01/21 Range/Units 16:04 16:04 16:04 WBC 4.4 L (4.8-10.8) X10*3/uL RBC 4.71 (4.20-5.50) X10*6/uL Hgb 12.9 (12.0-16.0) g/dl Hct 40.4 (37.0-47.0) % MCV 85.8 (80.0-98.0) fL MCH 27.4 (27.0-33.0) pg MCHC 31.9 (31.0-35.0) g/dl RDW 12.6 (11.0-16.0) % Plt Count 226 (160-400) X10*3/uL MPV 10.1 (9.4-12.3) fL Immature Gran % (Auto) 0.2 (0.0-0.4) % Neut % (Auto) 63.1 (45-73) % Lymph % (Auto) 26.3 (20-40) % Hale % (Auto) 7.9 (2-11) % Eos % (Auto) 2.3 (0-4) % Baso % (Auto) 0.2 (0-2) % Lymph # (Auto) 1.2 (1.2-4.9) X10*3/uL Hale # (Auto) 0.4 (0.1-1.2) X10*3/uL Eos # (Auto) 0.1 (0.0-0.4) X10*3/uL Baso # (Auto) 0.0 (0.0-0.2) X10*3/uL Abs Immat Gran (auto) 0.01 (0.00-0.03) X10*3/uL Absolute Neuts (auto) 2.8 (2.0-8.3) x10*3/uL Absolute Nucleated RBC 0.000 (0.0-0.012) X10*3/uL Nucleated RBC % (auto) 0.0 (0.0-0.2) /100WBC Sodium 140 (135-145) mmol/L Potassium 4.0 (3.3-5.1) mmol/L Chloride 101 (96-108) mmol/L Carbon Dioxide 29 (22-29) mmol/L Anion Gap 14 (12-20) BUN 15 (9-16) mg/dL Creatinine 0.78 (0.5-1.4) mg/dL Estim Creat Clear Calc 63.7 Estimated GFR > 60 Random Glucose 92 (60-115) mg/dL Calcium 9.7 (8.4-10.2) mg/dL Total Bilirubin 0.3 (0.0-1.0) mg/dL AST 20 (5-31) U/L ALT 9 (0-31) U/L Alkaline Phosphatase 82 (39-117) U/L Troponin I High Sens < 3.5 (<3.5-17.0) ng/L Total Protein 8.3 H (6.5-8.0) g/dL Albumin 4.4 (3.5-5.0) g/dL Urine Color Urine Appearance Urine pH (5.0-8.0) Ur Specific [place] (1.005-1.025) Urine Protein (NEG-TRACE) MG/DL Urine Glucose (UA) (NEG) MG/DL Urine Ketones (NEG) MG/DL Urine Blood (NEG) Urine Nitrite (NEG) Ur Leukocyte Esterase (NEG) Urine Test (NEGATIVE) COVID-19 (GARCIA) (Negative) COVID-19 Clin Com 12/01/21 12/01/21 12/01/21 Range/Units 17:16 17:16 17:16 WBC (4.8-10.8) X10*3/uL RBC (4.20-5.50) X10*6/uL Hgb (12.0-16.0) g/dl Hct (37.0-47.0) % MCV (80.0-98.0) fL MCH (27.0-33.0) pg MCHC (31.0-35.0) g/dl RDW (11.0-16.0) % Plt Count (160-400) X10*3/uL MPV (9.4-12.3) fL Immature Gran % (Auto) (0.0-0.4) % Neut % (Auto) (45-73) % Lymph % (Auto) (20-40) % Hale % (Auto) (2-11) % Eos % (Auto) (0-4) % Baso % (Auto) (0-2) % Lymph # (Auto) (1.2-4.9) X10*3/uL Hale # (Auto) (0.1-1.2) X10*3/uL Eos # (Auto) (0.0-0.4) X10*3/uL Baso # (Auto) (0.0-0.2) X10*3/uL Abs Immat Gran (auto) (0.00-0.03) X10*3/uL Absolute Neuts (auto) (2.0-8.3) x10*3/uL Absolute Nucleated RBC (0.0-0.012) X10*3/uL Nucleated RBC % (auto) (0.0-0.2) /100WBC Sodium (135-145) mmol/L Potassium (3.3-5.1) mmol/L Chloride (96-108) mmol/L Carbon Dioxide (22-29) mmol/L Anion Gap (12-20) BUN (9-16) mg/dL Creatinine (0.5-1.4) mg/dL Estim Creat Clear Calc Estimated GFR Random Glucose (60-115) mg/dL Calcium (8.4-10.2) mg/dL Total Bilirubin (0.0-1.0) mg/dL AST (5-31) U/L ALT (0-31) U/L Alkaline Phosphatase (39-117) U/L Troponin I High Sens (<3.5-17.0) ng/L Total Protein (6.5-8.0) g/dL Albumin (3.5-5.0) g/dL Urine Color STRAW Urine Appearance CLEAR Urine pH 7.0 (5.0-8.0) Ur Specific [place] 1.010 (1.005-1.025) Urine Protein NEG (NEG-TRACE) MG/DL Urine Glucose (UA) NEG (NEG) MG/DL Urine Ketones NEG (NEG) MG/DL Urine Blood NEG (NEG) Urine Nitrite NEG (NEG) Ur Leukocyte Esterase NEG (NEG) Urine Test NEGATIVE (NEGATIVE) COVID-19 (GARCIA) Negative (Negative) COVID-19 Clin Com See Note 12/01/21 Range/Units 18:35 WBC (4.8-10.8) X10*3/uL RBC (4.20-5.50) X10*6/uL Hgb (12.0-16.0) g/dl Hct (37.0-47.0) % MCV (80.0-98.0) fL MCH (27.0-33.0) pg MCHC (31.0-35.0) g/dl RDW (11.0-16.0) % Plt Count (160-400) X10*3/uL MPV (9.4-12.3) fL Immature Gran % (Auto) (0.0-0.4) % Neut % (Auto) (45-73) % Lymph % (Auto) (20-40) % Hale % (Auto) (2-11) % Eos % (Auto) (0-4) % Baso % (Auto) (0-2) % Lymph # (Auto) (1.2-4.9) X10*3/uL Hale # (Auto) (0.1-1.2) X10*3/uL Eos # (Auto) (0.0-0.4) X10*3/uL Baso # (Auto) (0.0-0.2) X10*3/uL Abs Immat Gran (auto) (0.00-0.03) X10*3/uL Absolute Neuts (auto) (2.0-8.3) x10*3/uL Absolute Nucleated RBC (0.0-0.012) X10*3/uL Nucleated RBC % (auto) (0.0-0.2) /100WBC Sodium (135-145) mmol/L Potassium (3.3-5.1) mmol/L Chloride (96-108) mmol/L Carbon Dioxide (22-29) mmol/L Anion Gap (12-20) BUN (9-16) mg/dL Creatinine (0.5-1.4) mg/dL Estim Creat Clear Calc Estimated GFR Random Glucose (60-115) mg/dL Calcium (8.4-10.2) mg/dL Total Bilirubin (0.0-1.0) mg/dL AST (5-31) U/L ALT (0-31) U/L Alkaline Phosphatase (39-117) U/L Troponin I High Sens < 3.5 (<3.5-17.0) ng/L Total Protein (6.5-8.0) g/dL Albumin (3.5-5.0) g/dL Urine Color Urine Appearance Urine pH (5.0-8.0) Ur Specific [place] (1.005-1.025) Urine Protein (NEG-TRACE) MG/DL Urine Glucose (UA) (NEG) MG/DL Urine Ketones (NEG) MG/DL Urine Blood (NEG) Urine Nitrite (NEG) Ur Leukocyte Esterase (NEG) Urine Test (NEGATIVE) COVID-19 (GARCIA) (Negative) COVID-19 Clin Com ECG Data Interpretation: In EKG shows sinus Gregory at a rate of 54, MO 180, QRS 100, QTC is not prolonged at 04:49, normal axis, no ST depressions or elevations no T-wave abnormalities Discharge Plan Discharge Clinical Impression: Headache Patient Disposition: Home, Self-Care Additional Instructions: Please call the neurologist's office at [phone] I have referred you to them, they should be calling you as well. Please return to emergency room if you feel faint, if you have any chest pain, shortness of breath, or any other new or concerning symptoms Prescriptions: No Action omeprazole 20 mg capsule,delayed release(DR/EC) 20 mg PO DAILY 90 Days Qty: 90 1RF hydrochlorothiazide 25 mg tablet 25 mg PO DAILY 90 Days Qty: 90 0RF lorazepam 0.5 mg tablet 0.5 mg PO BEDTIME PRN (Reason: anxiety) 30 Days Qty: 30 0RF Zyrtec 10 mg capsule 10 mg PO DAILY PRN (Reason: allergy symptoms) Qty: 30 3RF ondansetron HCl [Zofran] 4 mg tablet 4 mg PO Q8H PRN (Reason: nausea and vomiting) Qty: 10 0RF fluticasone propionate [Allergy Relief (fluticasone)] 50 mcg/actuation spray,suspension 1 spray intranasal BID Qty: 16 0RF Rx Instructions: administer into each nostril Referrals: Robin Vázquez MD [Physician] -
--- NOTE | 2021-12-01 15:15 | ECG_ITS ---
Test Reason : DIZZYNESS Blood Pressure : / mmHG Vent. Rate : 054 BPM Atrial Rate : 054 BPM P-R Int : 180 ms QRS Dur : 100 ms QT Int : 474 ms P-R-T Axes : 059 053 057 degrees QTc Int : 449 ms Sinus bradycardia Otherwise normal ECG When compared with ECG of 10-APR-2021 16:24, No significant change was found Referred By: Sadie Dougherty Electronically Signed By:Isrrael Espinoza
[2021-12-01 15:48] VITALS: BP 129/76; PULSE 56
[2021-12-01 15:49] VITALS: BP 132/79; PULSE 57
[2021-12-01 15:50] VITALS: BP 128/77; PULSE 62
[2021-12-01 15:52] VITALS: BP 128/77; PULSE 60; RESP 16; O2SAT 100
[2021-12-01 16:10] LABS: Basophils Percent Auto 0.2 % (0-2); Eosinophils Absolute Auto 0.1 X10*3/uL (0.0-0.4); Eosinophils Percent Auto 2.3 % (0-4); Hematocrit 40.4 % (37.0-47.0); Hemoglobin 12.9 g/dl (12.0-16.0); Imm Gran Abs Auto 0.01 X10*3/uL (0.00-0.03); Imm Gran Pct Auto 0.2 % (0.0-0.4); Lymphocytes Absolute Auto 1.2 X10*3/uL (1.2-4.9); Lymphocytes Percent Auto 26.3 % (20-40); MANUAL DIFF FLAG NO; Mean Corpuscular HGB Conc 31.9 g/dl (31.0-35.0); Mean Corpuscular Hemoglobin 27.4 pg (27.0-33.0); Mean Corpuscular Volume 85.8 fL (80.0-98.0); Mean Platelet Volume 10.1 fL (9.4-12.3); Monocytes Absolute Auto 0.4 X10*3/uL (0.1-1.2); Monocytes Percent Auto 7.9 % (2-11); Neutrophils Absolute Auto 2.8 x10*3/uL (2.0-8.3); Neutrophils Percent Auto 63.1 % (45-73); Platelet Count 226 X10*3/uL (160-400); Red Blood Count 4.71 X10*6/uL (4.20-5.50); Red Cell Distribution Width 12.6 % (11.0-16.0); White Blood Count 4.4 X10*3/uL (4.8-10.8)
--- NOTE | 2021-12-01 16:11 | PC.NURSE ---
pt to CT and XR, on return labs drawn, 20G IV placed R AC. orthostatic vitals complete. pt a&ox3, vss, medicated per provider order, IVF started. no new orders at this time.
[2021-12-01] MEDS: Acetaminophen 325 MG TABLET 650 MG PO (16:12)
[2021-12-01] MEDS: 0.9 % Sodium Chloride 1,000 ML 999 ML IV (16:12)
[2021-12-01] MEDS: ondansetron HCL 4 MG/2 ML VIAL IVPUSH (16:13)
[2021-12-01 16:26] LABS: Alanine Aminotransferase 9 U/L (0-31); Albumin Level 4.4 g/dL (3.5-5.0); Alkaline Phosphatase 82 U/L (39-117); Anion Gap 14 (12-20); Aspartate Amino Transferase 20 U/L (5-31); Bilirubin Total 0.3 mg/dL (0.0-1.0); Blood Urea Nitrogen 15 mg/dL (9-16); Calcium 9.7 mg/dL (8.4-10.2); Carbon Dioxide 29 mmol/L (22-29); Chloride 101 mmol/L (96-108); Creatinine Clr Calc Pharmacy 63.7; Estimated Glomerular Filt Rate > 60; Glucose Random 92 mg/dL (60-115); Sodium 140 mmol/L (135-145); Total Protein 8.3 g/dL (6.5-8.0)
[2021-12-01 16:30] LABS: Troponin-I High Sensitivity < 3.5 ng/L (<3.5-17.0)
[2021-12-01 17:23] LABS: Appearance Urine CLEAR; Color Urine STRAW; Glucose Urine UA NEG (NEG); Leukocyte Esterase Urine NEG (NEG); Nitrite Urine NEG (NEG); Urine Blood NEG (NEG); Urine Ketones NEG (NEG); Urine Protein NEG (NEG-TRACE)
[2021-12-01 17:25] LABS: UPreg QC Valid YES; Urine Pregnancy NEGATIVE (NEGATIVE)
[2021-12-01 17:45] LABS: COVID-19 Test Negative (Negative); IDNOW Serial# 9DB6401D
[2021-12-01] MEDS: diphenhydrAMINE HCL 50 MG/ML VIAL IVPUSH (18:28)
[2021-12-01] MEDS: Ketorolac Tromethamine 30 MG/ML VIAL IVPUSH (18:28)
[2021-12-01 18:29] VITALS: BP 129/72; PULSE 57; RESP 16; O2SAT 100
[2021-12-01 19:00] LABS: Troponin-I High Sensitivity < 3.5 ng/L (<3.5-17.0)
== END 2021-12-01 19:46 | disposition home or self-care (01) ==
PROVIDERS: Physician Assistant; Emergency Provider Internal Medicine; PCP Internal Medicine
DX: R51.9 Headache, unspecified (principal); R42 Dizziness and giddiness; Z20.822 Contact with and (suspected) exposure to COVID-19
CPT/HCPCS: 36415; 70450; 70486; 71046; 80053; 81003; 81025; 84484; 85025; 87635; 93005; 96361; 96374; 96375; 99284; 99285; J1200; J1885; J2405

== ENCOUNTER 2021-12-18 07:39 | Emergency (ER) | payer OTHER, SELFPAY ==
--- NOTE | ~2021-12-18 | CT_ITS ---
EXAMINATION: CT ABDOMEN AND PELVIS WITHOUT CONTRAST CLINICAL INFORMATION: Left lower quadrant pain, nausea and vomiting COMPARISON: Previous CT of the abdomen and pelvis September 2020 TECHNIQUE: Multidetector volumetric imaging was performed from the superior aspect of the liver through the pubic symphysis. Sagittal and coronal reformatted images were obtained on the technologist's workstation. This CT examination was performed using dose optimization techniques as appropriate, variously including the following: *Automated exposure control *Adjustment of mA and/or kV according to patient size (this includes techniques or standardized protocols for targeted exams where dose is matched to indication/reason for exam; i.e. extremities or head) *Use of iterative reconstruction technique DLP: 390 mGy-cm FINDINGS: LUNG BASES: The visualized lung bases are unremarkable. LIVER, GALLBLADDER, AND BILIARY TREE: The liver is normal in size, shape, and attenuation. No focal hepatic lesion or biliary ductal dilatation is present. The gallbladder is unremarkable with no evidence of radiopaque gallstones, gallbladder wall thickening, or obvious pericholecystic inflammatory changes. PANCREAS: Unremarkable. SPLEEN: Unremarkable. ADRENAL GLANDS: Unremarkable. KIDNEYS AND URETERS: The kidneys are normal in size, shape, and attenuation. No hydronephrosis, hydroureter, or calculi seen. No perinephric stranding. BLADDER: Unremarkable. GASTROINTESTINAL TRACT: The small and large bowel are unremarkable. The appendix is Seen. There are no inflammatory changes in the right lower quadrant. ABDOMINAL WALL: No significant hernia is appreciated. LYMPH NODES: Normal. VASCULAR: Unremarkable. PELVIC VISCERA: Unremarkable. OSSEOUS STRUCTURES: There are mild degenerative changes of the spine. CT/CT abdomen pelvis wo con IMPRESSION: Unremarkable exam. Fleischner guidelines were followed.
[2021-12-18 07:58] VITALS: BP 127/94; PULSE 78; RESP 18; TEMP 36.6; O2SAT 98; BMI 21.9
[2021-12-18] MEDS: 0.9 % Sodium Chloride 1,000 ML 999 ML IVCONT (10:08)
[2021-12-18 10:11] LABS: MANUAL DIFF FLAG NO
[2021-12-18] MEDS: diphenhydrAMINE HCL 50 MG/ML VIAL 25 MG IVPUSH (10:13)
[2021-12-18] MEDS: ondansetron HCL 4 MG/2 ML VIAL IVPUSH (10:14)
[2021-12-18 10:15] LABS: Basophils Percent Auto 0.2 % (0-2); Eosinophils Percent Auto 0.3 % (0-4); Hematocrit 39.4 % (37.0-47.0); Hemoglobin 12.7 g/dl (12.0-16.0); Imm Gran Abs Auto 0.01 X10*3/uL (0.00-0.03); Imm Gran Pct Auto 0.2 % (0.0-0.4); Lymphocytes Absolute Auto 1.2 X10*3/uL (1.2-4.9); Lymphocytes Percent Auto 19.8 % (20-40); Mean Corpuscular HGB Conc 32.2 g/dl (31.0-35.0); Mean Corpuscular Hemoglobin 27.7 pg (27.0-33.0); Mean Corpuscular Volume 85.8 fL (80.0-98.0); Mean Platelet Volume 9.9 fL (9.4-12.3); Monocytes Absolute Auto 0.5 X10*3/uL (0.1-1.2); Monocytes Percent Auto 7.8 % (2-11); Neutrophils Absolute Auto 4.3 x10*3/uL (2.0-8.3); Neutrophils Percent Auto 71.7 % (45-73); Platelet Count 219 X10*3/uL (160-400); Red Blood Count 4.59 X10*6/uL (4.20-5.50); Red Cell Distribution Width 12.8 % (11.0-16.0)
[2021-12-18] MEDS: Ketorolac Tromethamine 30 MG/ML VIAL IVPUSH (10:15)
[2021-12-18 10:30] LABS: Alanine Aminotransferase 13 U/L (0-31); Albumin Level 4.3 g/dL (3.5-5.0); Alkaline Phosphatase 82 U/L (39-117); Anion Gap 15 (12-20); Aspartate Amino Transferase 21 U/L (5-31); Bilirubin Total 0.8 mg/dL (0.0-1.0); Blood Urea Nitrogen 24 mg/dL (9-16); Calcium 9.4 mg/dL (8.4-10.2); Carbon Dioxide 27 mmol/L (22-29); Chloride 103 mmol/L (96-108); Creatinine Clr Calc Pharmacy 65.4; Estimated Glomerular Filt Rate > 60; Glucose Random 72 mg/dL (60-115); Magnesium 2.4 mg/dL (1.6-2.6); Potassium 3.6 mmol/L (3.3-5.1); Sodium 141 mmol/L (135-145); Total Protein 8.2 g/dL (6.5-8.0)
[2021-12-18 10:35] LABS: COVID-19 Test Negative (Negative); IDNOW Serial# 16C4AD1C; Influenza A Negative (Negative); Influenza B2 Negative (Negative)
--- NOTE | 2021-12-18 11:38 | ED.NAVMDI ---
HPI - Nausea/Vomiting/Diarrhea General Chief complaint: Nausea/Vomiting/Diarrhea Stated complaint: Nausea/Vomiting/Rash Time Seen by Provider: 12/18/21 09:17 Source: patient Mode of arrival: ambulatory Limitations: language barrier (Moldovan-speaking) History of Present Illness HPI Narrative: 56-year-old female with a past medical history of anxiety, depression, sinus headaches, vertigo and GERD presenting to the ED with complaints of nausea/vomiting with left lower quadrant abdominal pain with bilious emesis for the past few days worse today. Reports that she has also noticed a rash to her body that is very itchy and she is scratching herself and making abrasions. She denies any fevers, chills, dizziness, headaches, neck pain/stiffness, trouble swallowing or breathing, chest pain or shortness of breath, dyspnea on exertion, orthopnea, palpitations, paresthesias, jaw pain, black or bloody emesis, radiation of the abdominal pain, back pain, recent travel or sick contacts or possible bad food exposure, recent antibiotic usage, dysuria, hematuria, abnormal vaginal discharge, recent changes in medications or new medications/lotions/detergents/food or any other symptoms complaints or concerns at this time. MD elicited complaint: nausea, vomiting, diarrhea and abdominal pain Onset (ago): day(s) (2) Description of vomiting: bilious Description of diarrhea: watery Associated nausea: Yes Associated abdominal pain: Yes Location of pain: LLQ Radiation: does not radiate Pain consistency: constant Severity: mild Quality: cramping and aching Exacerbating factors: none Relieving factors: none Associated symptoms: nausea/vomiting and rash Related Data Previous Rx's Medication Instructions Recorded ondansetron HCl 4 mg tablet 4 mg PO Q8H PRN #10 tab 10/23/20 (Zofran) fluticasone propionate 50 1 spray INTRANASAL BID #16 g 04/02/21 mcg/actuation nasal spray,suspension (Allergy Relief (fluticasone)) lorazepam 0.5 mg tablet 0.5 mg PO BEDTIME PRN 30 Days #30 12/03/21 tab cetirizine 10 mg capsule (Zyrtec) 10 mg PO DAILY PRN #30 cap 12/13/21 hydrochlorothiazide 25 mg tablet 25 mg PO DAILY 90 Days #90 tab 12/13/21 omeprazole 20 mg capsule,delayed 20 mg PO DAILY 90 Days #90 cap 12/13/21 release dicyclomine 20 mg tablet 20 mg PO BID #14 tab 12/18/21 diphenhydramine HCl 25 mg tablet 50 mg PO TID PRN #14 tab 12/18/21 (Benadryl Allergy) ondansetron 4 mg disintegrating 4 mg PO Q6H #14 tab 12/18/21 tablet Allergies Allergy/AdvReac Type Severity Reaction Status Date / Time lactose [LACTOSE] Allergy Severe DIARRHEA Verified 12/18/21 07:58 aspirin [Aspirin] Allergy Unknown UPSET Verified 12/18/21 07:58 STOMACH cheese Allergy Unknown Diarrhea Uncoded 04/10/21 13:56 milk Allergy Unknown Diarrhea Uncoded 04/10/21 13:56 Review of Systems Review of Systems: Constitutional : No Fever, + Chills, No Night Sweats, + Fatigue, + Malaise Cardiovascular : No Chest Pain, No SOB Respiratory : No Cough, No Sputum, No Wheezing, No Dyspnea Gastrointestinal : + Nausea, + Vomiting, + Diarrhea, + abdominal Pain, No Hematochezia, No Melena Genitourinary : No irregular bleeding, No Dysuria, No Urinary Frequency, No Hematuria,No Urinary Incontinence, No Urgency, No Flank Pain Musculoskeletal : No joint pain, No Myalgias, No Joint Swelling Skin : No Skin Lesions, + rash Neuro : No Weakness, No Numbness, No Paresthesias, No Loss of Consciousness, No Dizziness, No Headache Heme/Lymph: No Lymphadenopathy Endocrine : No Temperature Intolerance Yes all other systems are reviewed and are negative Gastrointestinal: Gastrointestinal: Reports nausea PMFSH Past Medical History Attestation statement: The following information was validated with the patient. Medical History Anxiety Depression GERD (gastroesophageal reflux disease) Sinus headache Vertigo Social History Social History Alcohol intake: never Advance Directives: No Advance Directives Information Provided: No Physical Exam Vital Signs: Vital Signs: Last Vital Signs Temp 97.9 F 12/18/21 07:58 Pulse 78 12/18/21 07:58 Resp 18 12/18/21 07:58 BP 127/94 H 12/18/21 07:58 Pulse Ox 98 12/18/21 07:58 BMI result Body Mass Index 21.9 vital signs have been reviewed as normal and appeared to be correct. Blood pressure 127/94. Heart rate normal. Respiration rate normal. Temperature normal. Oxygen saturation normal. Appearance: Alert. Oriented X3. No acute distress. Head: Normal external exam. Normocephalic. Eyes: PERRLA. EOMI. Conjunctiva and sclera normal. Eyelids normal. ENT: Pharynx normal. Uvula midline. Moist mucous membranes. No trismus noted. No drooling noted. No muffled voice noted. Neck: Normal inspection. Neck supple. FROM. No adenopathy. No meningeal signs. CVS: Normal heart rate and rhythm. Heart sound normal. No murmurs noted. Pulses normal throughout. Respiratory: No respiratory distress. Painless inspiration. Breath sounds normal. No wheezes/rales/rhonchi noted. Chest nontender. No accessory muscle usage noted or decreased air movement noted. Abdomen: Soft and mild TTP to LLQ. Nondistended. No guarding. No rigidity. Bowel sounds normal in all 4 quadrants. No distention noted. No organomegaly noted. No visible injury noted. No rebound tenderness. Negative Rovsing sign. Negative obturator's sign. Negative psoas sign. Negative Joseph sign. Back: No CVA tenderness. Full range of motion noted. Skin: Skin warm and dry. Normal skin color. Normal skin turgor. No rashes/lesions/lacerations noted. Extremities: Extremities exhibit normal range of motion. Extremities nontender. Neuro: Oriented X 3. No motor deficit. No sensory deficit. Reflexes normal. Normal steady gait. CN's II-XII intact bilaterally? Course Course Course Narrative: 9:30am - 56-year-old female with a past medical history of anxiety, depression, sinus headaches, vertigo and GERD presenting to the ED with complaints of nausea/vomiting with left lower quadrant abdominal pain with bilious emesis for the past few days worse today. Reports that she has also noticed a rash to her body that is very itchy and she is scratching herself and making abrasions. Plan: Labs, UA, COVID/flu swab, CT scan abdomen pelvis without IV contrast. Provide a L of IV fluids with 4 mg of Zofran and 25 mg of IV Benadryl and Toradol then re-evaluate. Reevaluation(s) Reevaluation #1: - labs revealed and BUN 24 otherwise all other labs are within normal limits. Patient negative for COVID and influenza. CT scan abdomen pelvis within normal limits no acute processes are noted. Pending UA. Patient now tolerating p.o. fluids/solids. If urine within normal limits will DC home with symptomatic treatment for gastroenteritis instructions return if any new or worsening symptoms. Patient understands agrees with this plan. Time: 11:43 [facility] - Nausea/Vomiting/Diarrhea Medical Records Attestation: I reviewed the patient's medical records. Lab Data Attestation: I reviewed the patient's lab results. Result diagrams: 12/18/21 10:04 12/18/21 10:04 Labs: Lab Results 12/18/21 12/18/21 12/18/21 Range/Units 10:04 10:04 10:05 WBC 6.0 (4.8-10.8) X10*3/uL RBC 4.59 (4.20-5.50) X10*6/uL Hgb 12.7 (12.0-16.0) g/dl Hct 39.4 (37.0-47.0) % MCV 85.8 (80.0-98.0) fL MCH 27.7 (27.0-33.0) pg MCHC 32.2 (31.0-35.0) g/dl RDW 12.8 (11.0-16.0) % Plt Count 219 (160-400) X10*3/uL MPV 9.9 (9.4-12.3) fL Immature Gran % (Auto) 0.2 (0.0-0.4) % Neut % (Auto) 71.7 (45-73) % Lymph % (Auto) 19.8 L (20-40) % [place] % (Auto) 7.8 (2-11) % Eos % (Auto) 0.3 (0-4) % Baso % (Auto) 0.2 (0-2) % Lymph # (Auto) 1.2 (1.2-4.9) X10*3/uL [place] # (Auto) 0.5 (0.1-1.2) X10*3/uL Eos # (Auto) 0.0 (0.0-0.4) X10*3/uL Baso # (Auto) 0.0 (0.0-0.2) X10*3/uL Abs Immat Gran (auto) 0.01 (0.00-0.03) X10*3/uL Absolute Neuts (auto) 4.3 (2.0-8.3) x10*3/uL Absolute Nucleated RBC 0.000 (0.0-0.012) X10*3/uL Nucleated RBC % (auto) 0.0 (0.0-0.2) /100WBC Sodium 141 (135-145) mmol/L Potassium 3.6 (3.3-5.1) mmol/L Chloride 103 (96-108) mmol/L Carbon Dioxide 27 (22-29) mmol/L Anion Gap 15 (12-20) BUN 24 H D (9-16) mg/dL Creatinine 0.76 (0.5-1.4) mg/dL Estim Creat Clear Calc 65.4 Estimated GFR > 60 Random Glucose 72 (60-115) mg/dL Calcium 9.4 (8.4-10.2) mg/dL Magnesium 2.4 (1.6-2.6) mg/dL Total Bilirubin 0.8 (0.0-1.0) mg/dL AST 21 (5-31) U/L ALT 13 (0-31) U/L Alkaline Phosphatase 82 (39-117) U/L Total Protein 8.2 H (6.5-8.0) g/dL Albumin 4.3 (3.5-5.0) g/dL COVID-19 (GARCIA) (Negative) COVID-19 Clin Com Influenza Type A (WILBER) Negative (Negative) Influenza Type B (WILBER) Negative (Negative) Influenza A & B Note See Note 12/18/21 Range/Units 10:05 WBC (4.8-10.8) X10*3/uL RBC (4.20-5.50) X10*6/uL Hgb (12.0-16.0) g/dl Hct (37.0-47.0) % MCV (80.0-98.0) fL MCH (27.0-33.0) pg MCHC (31.0-35.0) g/dl RDW (11.0-16.0) % Plt Count (160-400) X10*3/uL MPV (9.4-12.3) fL Immature Gran % (Auto) (0.0-0.4) % Neut % (Auto) (45-73) % Lymph % (Auto) (20-40) % [place] % (Auto) (2-11) % Eos % (Auto) (0-4) % Baso % (Auto) (0-2) % Lymph # (Auto) (1.2-4.9) X10*3/uL [place] # (Auto) (0.1-1.2) X10*3/uL Eos # (Auto) (0.0-0.4) X10*3/uL Baso # (Auto) (0.0-0.2) X10*3/uL Abs Immat Gran (auto) (0.00-0.03) X10*3/uL Absolute Neuts (auto) (2.0-8.3) x10*3/uL Absolute Nucleated RBC (0.0-0.012) X10*3/uL Nucleated RBC % (auto) (0.0-0.2) /100WBC Sodium (135-145) mmol/L Potassium (3.3-5.1) mmol/L Chloride (96-108) mmol/L Carbon Dioxide (22-29) mmol/L Anion Gap (12-20) BUN (9-16) mg/dL Creatinine (0.5-1.4) mg/dL Estim Creat Clear Calc Estimated GFR Random Glucose (60-115) mg/dL Calcium (8.4-10.2) mg/dL Magnesium (1.6-2.6) mg/dL Total Bilirubin (0.0-1.0) mg/dL AST (5-31) U/L ALT (0-31) U/L Alkaline Phosphatase (39-117) U/L Total Protein (6.5-8.0) g/dL Albumin (3.5-5.0) g/dL COVID-19 (GARCIA) Negative (Negative) COVID-19 Clin Com See Note Influenza Type A (WILBER) (Negative) Influenza Type B (WILBER) (Negative) Influenza A & B Note Imaging Data CT scan abdomen pelvis without IV contrast: Attestation: I personally reviewed and interpreted this imaging study as follows: Radiologist's impression: FINDINGS: LUNG BASES: The visualized lung bases are unremarkable.? LIVER, GALLBLADDER, AND BILIARY TREE: The liver is normal in size, shape, and attenuation. No focal hepatic lesion or biliary ductal dilatation is present. The gallbladder is unremarkable with no evidence of radiopaque gallstones, gallbladder wall thickening, or obvious pericholecystic inflammatory changes.? PANCREAS: Unremarkable.? SPLEEN: Unremarkable.? ADRENAL GLANDS: Unremarkable.? KIDNEYS AND URETERS: The kidneys are normal in size, shape, and attenuation. No hydronephrosis, hydroureter, or calculi seen. No perinephric stranding. ? BLADDER: Unremarkable.? GASTROINTESTINAL TRACT: The small and large bowel are unremarkable. The appendix is Seen. There are no inflammatory changes in the right lower quadrant. ABDOMINAL WALL: No significant hernia is appreciated.? LYMPH NODES: Normal. VASCULAR: Unremarkable. PELVIC VISCERA: Unremarkable.? OSSEOUS STRUCTURES: There are mild degenerative changes of the spine. CT/CT abdomen pelvis wo con IMPRESSION: Unremarkable exam. ? Fleischner guidelines were followed. Discharge Plan Discharge Clinical Impression: Gastroenteritis, Allergic reaction Patient Disposition: Home, Self-Care Instructions: Gastroenteritis (ED), General Allergic Reaction (ED) Prescriptions: New ondansetron 4 mg tablet,disintegrating 4 mg PO Q6H Qty: 14 0RF dicyclomine 20 mg tablet 20 mg PO BID Qty: 14 0RF diphenhydramine HCl [Benadryl Allergy] 25 mg tablet 50 mg PO TID PRN (Reason: allergic reaction) Qty: 14 0RF No Action lorazepam 0.5 mg tablet 0.5 mg PO BEDTIME PRN (Reason: anxiety) 30 Days Qty: 30 0RF hydrochlorothiazide 25 mg tablet 25 mg PO DAILY 90 Days Qty: 90 0RF Zyrtec 10 mg capsule 10 mg PO DAILY PRN (Reason: allergy symptoms) Qty: 30 3RF omeprazole 20 mg capsule,delayed release(DR/EC) 20 mg PO DAILY 90 Days Qty: 90 0RF ondansetron HCl [Zofran] 4 mg tablet 4 mg PO Q8H PRN (Reason: nausea and vomiting) Qty: 10 0RF fluticasone propionate [Allergy Relief (fluticasone)] 50 mcg/actuation spray,suspension 1 spray intranasal BID Qty: 16 0RF Rx Instructions: administer into each nostril Referrals: Alecia Godfrey MD [Primary Care Provider] - 2 days Print Language: Moldovan
[2021-12-18 11:41] VITALS: RESP 17
[2021-12-18 11:57] LABS: Appearance Urine HAZY; Color Urine YELLOW; Glucose Urine UA NEG (NEG); Leukocyte Esterase Urine NEG (NEG); Nitrite Urine NEG (NEG); Specific Gravity - Urine >= 1.030 (1.005-1.025); UACC Culture Trigger NO; Urine Blood TRACE (NEG); Urine Ketones >=80 MG/DL (NEG); Urine Protein TRACE MG/DL (NEG-TRACE)
[2021-12-18 12:12] LABS: Mucus Urine 1+ /LPF; RBC Urine 0-2 /HPF (0); Squamous Epithelial Cell Urine 1+ /LPF; WBC Urine 0-2 /HPF (0-4)
== END 2021-12-18 12:01 | disposition home or self-care (01) ==
PROVIDERS: Physician Assistant Medical; Emergency Provider Emergency Medicine Emergency Medical Services; PCP Internal Medicine
DX: K52.9 Noninfective gastroenteritis and colitis, unspecified (principal); R10.32 Left lower quadrant pain; T78.40XA Allergy, unspecified, initial encounter; X58.XXXA Exposure to other specified factors, initial encounter; Z20.822 Contact with and (suspected) exposure to COVID-19
CPT/HCPCS: 36415; 74176; 80053; 81001; 83735; 85025; 87502; 87635; 96361; 96374; 96375; 99284; J1200; J1885; J2405

== ENCOUNTER 2022-04-03 07:30 | Emergency (ER) | payer OTHER, SELFPAY ==
[2022-04-03 08:08] VITALS: BP 142/80; PULSE 62; RESP 16; TEMP 36.4; O2SAT 100; BMI 22.3
--- NOTE | 2022-04-03 09:09 | ED.EYEPROB ---
HPI - Eye Problem General Chief complaint: Eye Problems Stated complaint: R eye redness Time Seen by Provider: 04/03/22 08:59 Source: patient Mode of arrival: ambulatory History of Present Illness HPI Narrative: 56-year-old female presenting to the ED complaining of painful pruritic right eye since yesterday. Reports wearing glasses, denies contacts. Denies injury to eye, vision loss, vision change, blurry vision, drainage, fever, trauma chief complaint: eye pain and eye redness Onset (ago): day(s) Related Data Previous Rx's Medication Instructions Recorded ondansetron HCl 4 mg tablet 4 mg PO Q8H PRN nausea and 10/23/20 (Zofran) vomiting #10 tabs fluticasone propionate 50 1 spray intranasal BID #16 grams 04/02/21 mcg/actuation nasal spray,suspension (Allergy Relief (fluticasone)) dicyclomine 20 mg tablet 20 mg PO BID abd cramps #14 tabs 12/18/21 diphenhydramine HCl 25 mg tablet 50 mg PO TID PRN allergic reaction 12/18/21 (Benadryl Allergy) #14 tabs ondansetron 4 mg disintegrating 4 mg PO Q6H Nausea and vomiting 12/18/21 tablet #14 tabs cetirizine 10 mg capsule (Zyrtec) 10 mg PO DAILY PRN allergy 12/26/21 symptoms #30 caps lorazepam 0.5 mg tablet 0.5 mg PO BEDTIME PRN anxiety 30 12/26/21 days #30 tabs hydrochlorothiazide 25 mg tablet 25 mg PO DAILY Dizziness 90 days 04/02/22 #90 tabs omeprazole 20 mg capsule,delayed 20 mg PO DAILY 90 days #90 caps 04/02/22 release olopatadine 0.1 % eye drops 1 drp ophthalmic (eye) BID 7 days 04/03/22 #5 mL Allergies Allergy/AdvReac Type Severity Reaction Status Date / Time lactose [LACTOSE] Allergy Severe DIARRHEA Verified 12/18/21 07:58 aspirin [Aspirin] Allergy Unknown UPSET Verified 12/18/21 07:58 STOMACH cheese Allergy Unknown Diarrhea Uncoded 04/10/21 13:56 milk Allergy Unknown Diarrhea Uncoded 04/10/21 13:56 Review of Systems Review of Systems: Constitutional: No Fever, No Chills, No Fatigue, No Malaise ENT/Mouth: No Ear Pain, No Nasal Congestion, No sore throat, No Rhinorrhea, No Swallowing Difficulty Eyes: + Eye Pain, + Swelling, + Redness, No Foreign Body, No Discharge, No Vision Changes Cardiovascular: No Chest Pain, No SOB, No Edema, No Palpitations Respiratory: No Cough, No Sputum, No Dyspnea Gastrointestinal: No Nausea, No Vomiting, No Diarrhea, No Constipation, No Abdominal pain Musculoskeletal: No joint pain, No Myalgias, No Joint Swelling Skin: No Skin Lesions, No rash Neuro: No Weakness, No Headache Yes all other systems are reviewed and are negative Constitutional: Constitutional: Reports as per [facility] Past Medical History Attestation statement: The following information was validated with the patient. Medical History Anxiety Depression GERD (gastroesophageal reflux disease) Sinus headache Vertigo Social History Social History Alcohol intake: never Advance Directives: No Advance Directives Information Provided: No Physical Exam Vital Signs: Vital Signs: Last Vital Signs Temp 97.6 F 04/03/22 08:08 Pulse 62 04/03/22 08:08 Resp 16 04/03/22 08:08 BP 142/80 H 04/03/22 08:08 Pulse Ox 100 04/03/22 08:08 O2 Del Method 04/03/22 08:08 BMI result Body Mass Index 22.3 Const: General: cooperative, healthy appearing and no acute distress Orientation/consciousness: patient oriented x3 Limitations: no limitations HEENT: Head: Yes normal to inspection and Yes atraumatic Ears: hearing grossly normal bilaterally General nose exam: Normal external nose present Face and sinus: Yes normal facial exam Eyes: Other: + erythematous internal hordeolum to right lower lid. Mildly painful. Visual Mcduffie: normal visual mcduffie by confrontation Periorbital: periorbital findings normal Conjunctivae: conjunctivae normal Sclerae: sclerae normal Corneas: corneas normal Pupils: Equal, round and reactive pupils present EOM: EOMs intact bilaterally and no movement deficit Direct Ophthalmoscopy: normal light reflex Neck: Neck: Yes normal visual inspection and Yes no meningeal signs Resp: Effort & Inspection: normal respiratory effort and no respiratory distress Cardio: Rate: regular rate Skin: Rashes: no rashes Wounds: no wounds Neuro: General: patient oriented x3, tone normal and no meningeal signs Cranial nerves: Yes Equal, round and reactive pupils present Gait exam (Neuro): Normal gait present Extrem: General: Yes normal to inspection MDM - Eye Problem MDM Narrative Medical decision making narrative: 56-year-old female presenting to the ED complaining of painful pruritic right eye since yesterday. On exam vital signs stable, NAD, nontoxic appearing, physical exam consistent with acute cor to numb and possible allergic conjunctivitis. Low concern for periorbital/orbital cellulitis. Low suspicion for corneal abrasion Plan: Warm compresses, olopadine drops Differential Diagnosis Differential diagnosis: Likely conjunctivitis Medical Records Attestation: I reviewed the patient's medical records. Lab Data Attestation: I reviewed the patient's lab results. Discharge Plan Discharge Clinical Impression: Hordeolum, Acute allergic conjunctivitis Patient Disposition: Home, Self-Care Instructions: Stye (ED) Additional Instructions: You have a stye in her eye, apply warm compresses 3 to 4 times a day and lightly massaged the area to help break up the stye. Take Tylenol and Motrin as needed. Additionally lambda clean drops will help with eye itchiness. If area becomes more swollen, red, vision change or loss return to the emergency department Prescriptions: New olopatadine 0.1 % drops 1 drp ophthalmic (eye) BID 7 Days Qty: 5 0RF Rx Instructions: separate doses by at least 6-8 hours No Action Zyrtec 10 mg capsule 10 mg PO DAILY PRN (Reason: allergy symptoms) Qty: 30 3RF lorazepam 0.5 mg tablet 0.5 mg PO BEDTIME PRN (Reason: anxiety) 30 Days Qty: 30 0RF omeprazole 20 mg capsule,delayed release(DR/EC) 20 mg PO DAILY 90 Days Qty: 90 0RF hydrochlorothiazide 25 mg tablet 25 mg PO DAILY 90 Days Qty: 90 0RF ondansetron HCl [Zofran] 4 mg tablet 4 mg PO Q8H PRN (Reason: nausea and vomiting) Qty: 10 0RF fluticasone propionate [Allergy Relief (fluticasone)] 50 mcg/actuation spray,suspension 1 spray intranasal BID Qty: 16 0RF Rx Instructions: administer into each nostril ondansetron 4 mg tablet,disintegrating 4 mg PO Q6H Qty: 14 0RF dicyclomine 20 mg tablet 20 mg PO BID Qty: 14 0RF diphenhydramine HCl [Benadryl Allergy] 25 mg tablet 50 mg PO TID PRN (Reason: allergic reaction) Qty: 14 0RF Referrals: Alecia Godfrey MD [Primary Care Provider] - Stand Alone Forms: Work/School Release
== END 2022-04-03 09:35 | disposition home or self-care (01) ==
PROVIDERS: Emergency Provider Emergency Medicine Emergency Medical Services; PCP Internal Medicine
DX: H00.022 Hordeolum internum right lower eyelid (principal); H10.11 Acute atopic conjunctivitis, right eye; H57.11 Ocular pain, right eye
CPT/HCPCS: 99283

== ENCOUNTER 2022-06-19 13:39 | Outpatient (REF) | payer OTHER, SELFPAY ==
--- NOTE | ~2022-06-19 | MM_ITS ---
EXAMINATION: MM SCREENING DIGITAL BREAST TOMOSYNTHESIS, BILATERAL CLINICAL INFORMATION: Screening. Asymptomatic. The lifetime risk of breast cancer based on the Tyrer-Cuzick Model is 4%. COMPARISON: Mammography: 06/11/2021, 02/18/2020, 12/08/2015 TECHNIQUE: Digital breast tomosynthesis is performed in both the craniocaudal and mediolateral oblique views along with computer-aided detection (CAD). Synthesized 2D images are generated from the tomosynthesis. Additional exaggerated left CC view is provided. FINDINGS: There are scattered areas of fibroglandular density (ACR BI-RADS breast composition Category b). There are no significant masses, abnormal calcifications, or other abnormalities. Parenchymal pattern is similar to prior studies. There is no developing density or architectural abnormality. The axilla and skin contours are unremarkable. No significant changes. MM/MM tomosynthesis screening BI IMPRESSION: No mammographic evidence of malignancy. ASSESSMENT: BI-RADS 1: Negative RECOMMENDATION: Routine annual mammography screening. This patient's information was entered into a reminder system with a target due date for their next mammogram.
== END 2022-06-19 13:40 | disposition home or self-care (01) ==
LOC: HO.MAMMO 13:39
PROVIDERS: PCP Internal Medicine; Visit Provider Internal Medicine
DX: Z12.31 Encounter for screening mammogram for malignant neoplasm of breast (principal)
CPT/HCPCS: 77063; 77067

== ENCOUNTER 2022-06-23 10:00 | Emergency (ER) | payer OTHER, SELFPAY ==
[2022-06-23 10:38] VITALS: BP 136/79; PULSE 64; RESP 17; TEMP 35.8; O2SAT 98; BMI 22.8
--- NOTE | 2022-06-23 13:35 | ED.EYEPROB ---
HPI - Eye Problem General Chief complaint: Eye Problems Stated complaint: Eye sty Time Seen by Provider: 06/23/22 13:10 Source: patient Mode of arrival: ambulatory Limitations: no limitations History of Present Illness HPI Narrative: 56 yo female w/ PMHx of anxiety, HTN, GERD, and seasonal allergies presenting w/ a one day hx of left eye pain w/ a lump. She reports that she noticed it yesterday evening w/o any recent hx of injury, lacerations, or trauma to the eye. She states that the quality of pain is throbbing and constant since onset. She denies any use of medications to alleviate her symptoms. She denies noting any changes to her vision. She denies noting any discharge or changes in tear production w/ onset of symptoms. She denies any associated fevers, chills, headaches, ear aches, rashes, or SOB. She reports that she had similar symptoms in her right eye approx 3-4 mos ago that was alleviated w/ eye drops. chief complaint: eye pain (left eye) Onset (ago): day(s) (1) Onset description: gradual Duration: constant Location: left eye Eye Symptoms: pain (throbbing) Place: home Mechanism: none Severity: mild Severity scale (1-10): 1 If Pain, Quality: throbbing Associated symptoms: none Treatments Prior to Arrival: none Related Data Previous Rx's Medication Instructions Recorded ondansetron HCl 4 mg tablet 4 mg PO Q8H PRN nausea and 10/23/20 (Zofran) vomiting #10 tabs fluticasone propionate 50 1 spray intranasal BID #16 grams 04/02/21 mcg/actuation nasal spray,suspension (Allergy Relief (fluticasone)) dicyclomine 20 mg tablet 20 mg PO BID abd cramps #14 tabs 12/18/21 diphenhydramine HCl 25 mg tablet 50 mg PO TID PRN allergic reaction 12/18/21 (Benadryl Allergy) #14 tabs ondansetron 4 mg disintegrating 4 mg PO Q6H Nausea and vomiting 12/18/21 tablet #14 tabs olopatadine 0.1 % eye drops 1 drp ophthalmic (eye) BID 7 days 04/03/22 #5 mL cetirizine 10 mg capsule (Zyrtec) 10 mg PO DAILY PRN allergy 05/05/22 symptoms #30 caps hydrochlorothiazide 25 mg tablet 25 mg PO DAILY Dizziness 90 days 06/10/22 #90 tabs lorazepam 0.5 mg tablet 0.5 mg PO BEDTIME PRN anxiety 30 06/10/22 days #30 tabs omeprazole 20 mg capsule,delayed 20 mg PO DAILY 90 days #90 caps 06/10/22 release Allergies Allergy/AdvReac Type Severity Reaction Status Date / Time lactose [LACTOSE] Allergy Severe DIARRHEA Verified 12/18/21 07:58 aspirin [Aspirin] Allergy Unknown UPSET Verified 12/18/21 07:58 STOMACH cheese Allergy Unknown Diarrhea Uncoded 04/10/21 13:56 milk Allergy Unknown Diarrhea Uncoded 04/10/21 13:56 Review of Systems Review of Systems: Constitutional: No Weight loss, No Fever, No Chills ENT/Mouth: + L eye pain w/ stye, No changes to vision, No pain eye movement, No eye discharge, No change in tear production, No Ear Pain, No Nasal Congestion, No Sinus Pain, No Hoarseness, No sore throat, No Rhinorrhea, No Swallowing Difficulty Cardiovascular: No Chest Pain, No SOB Respiratory: No Cough, No Sputum Gastrointestinal: No Nausea, No Vomiting, No Abdominal pain Genitourinary: No Dysuria, No Urinary Frequency, No Hematuria Skin: No Skin Lesions, No rash Neuro: No Weakness, No Numbness, No Paresthesias PMFSH Past Medical History Attestation statement: The following information was validated with the patient. Medical History Anxiety Depression GERD (gastroesophageal reflux disease) Sinus headache Vertigo Social History Social History Alcohol intake: never Advance Directives: No Advance Directives Information Provided: No Physical Exam Vital Signs: Vital Signs: Last Vital Signs Temp 96.4 F L 06/23/22 10:38 Pulse 64 06/23/22 10:38 Resp 17 06/23/22 10:38 BP 136/79 06/23/22 10:38 Pulse Ox 98 06/23/22 10:38 O2 Del Method 06/23/22 10:38 BMI result Body Mass Index 22.8 Const: General: cooperative, healthy appearing and comfortable Orientation/consciousness: patient oriented x3 Limitations: no limitations HEENT: Head: Yes normal to inspection, Yes atraumatic, No abrasion, No contusion, No hematoma and No laceration Ears: hearing grossly normal bilaterally General nose exam: Normal external nose present Eyes: General: appearance normal, both eyes and all related structures Alignment and Position: alignment normal Periorbital: periorbital findings normal Eyelids: Yes eyelids normal Conjunctivae: conjunctivae normal Sclerae: sclerae normal Corneas: corneas normal Pupils: Equal, round and reactive pupils present EOM: EOMs intact bilaterally Eyes/upper lids images: 1. +internal hordeolum with mild erythema and swelling Neck: Neck: Yes normal visual inspection Chest: Chest palpation & inspection: normal inspection of the chest Resp: Effort & Inspection: normal respiratory effort and able to speak in complete sentences Auscultation: clear to auscultation bilaterally Cardio: Rate: regular rate GI: Inspection: Yes normal to inspection Skin: General skin exam: no rashes or lesions noted Neuro: General: patient oriented x3 Cranial nerves: Yes Equal, round and reactive pupils present MDM - Eye Problem MDM Narrative Medical decision making narrative: 56 yo female w/ PMHx of anxiety, HTN, GERD, and seasonal allergies presenting w/ a one day hx of left eye pain w/ a lump. On exam vital signs stable, NAD, nontoxic appearing, internal stye noted to left lower lid. No fluctuance or induration. No evidence of cellulitis. EOMs intact without pain. No evidence of globe rupture, periorbital/orbital cellulitis or abscess Plan: Strict return precautions, warm soaks/Tylenol/ibuprofen, PCP follow-up Medical Records Attestation: I reviewed the patient's medical records. Lab Data Attestation: I reviewed the patient's lab results. Discharge Plan Discharge Clinical Impression: Hordeolum Patient Disposition: Home, Self-Care Instructions: Stye (ED) Additional Instructions: You have an internal stye on her eye. Take Tylenol / Motrin as needed. Apply warm compresses and massage the area Follow-up with her doctor as needed If he develops vision change/loss, drainage from the eye, area begins to look infected, is red, you are unable to open her eye return to the ED Prescriptions: No Action Zyrtec 10 mg capsule 10 mg PO DAILY PRN (Reason: allergy symptoms) Qty: 30 3RF lorazepam 0.5 mg tablet 0.5 mg PO BEDTIME PRN (Reason: anxiety) 30 Days Qty: 30 0RF omeprazole 20 mg capsule,delayed release(DR/EC) 20 mg PO DAILY 90 Days Qty: 90 0RF hydrochlorothiazide 25 mg tablet 25 mg PO DAILY 90 Days Qty: 90 0RF ondansetron HCl [Zofran] 4 mg tablet 4 mg PO Q8H PRN (Reason: nausea and vomiting) Qty: 10 0RF fluticasone propionate [Allergy Relief (fluticasone)] 50 mcg/actuation spray,suspension 1 spray intranasal BID Qty: 16 0RF Rx Instructions: administer into each nostril ondansetron 4 mg tablet,disintegrating 4 mg PO Q6H Qty: 14 0RF dicyclomine 20 mg tablet 20 mg PO BID Qty: 14 0RF diphenhydramine HCl [Benadryl Allergy] 25 mg tablet 50 mg PO TID PRN (Reason: allergic reaction) Qty: 14 0RF olopatadine 0.1 % drops 1 drp ophthalmic (eye) BID 7 Days Qty: 5 0RF Rx Instructions: separate doses by at least 6-8 hours Referrals: Alecia Godfrey MD [Primary Care Provider] - 5 days Interventions: ED Discharge Assessment Last Done: 06/23/22 14:21 Discharge Date/Time: 06/23/22 14:22
== END 2022-06-23 14:22 | disposition home or self-care (01) ==
PROVIDERS: Emergency Provider Emergency Medicine; PCP Internal Medicine
DX: H00.016 Hordeolum externum left eye, unspecified eyelid (principal); Z79.899 Other long term (current) drug therapy
CPT/HCPCS: 99282; 99283

== ENCOUNTER 2022-07-17 09:59 | Emergency (ER) | payer OTHER, SELFPAY ==
--- NOTE | ~2022-07-17 | CT_ITS ---
EXAMINATION: CT ABDOMEN AND PELVIS WITHOUT CONTRAST CLINICAL INFORMATION: Lower abdominal pain/burping and constipation. COMPARISON: CT abdomen pelvis 12/18/2021 TECHNIQUE: Multidetector volumetric imaging was performed from the superior aspect of the liver through the pubic symphysis. Sagittal and coronal reformatted images were obtained on the technologist's workstation. This CT examination was performed using dose optimization techniques as appropriate, variously including the following: *Automated exposure control *Adjustment of mA and/or kV according to patient size (this includes techniques or standardized protocols for targeted exams where dose is matched to indication/reason for exam; i.e. extremities or head) *Use of iterative reconstruction technique DLP: 452 mGy-cm FINDINGS: LUNG BASES: The lung bases are clear. The heart size is normal. LIVER, GALLBLADDER, AND BILIARY TREE: The liver is normal in size, shape, and attenuation. No focal hepatic lesion or biliary ductal dilatation is present. The gallbladder is unremarkable with no evidence of radiopaque gallstones, gallbladder wall thickening, or obvious pericholecystic inflammatory changes. PANCREAS: Unremarkable. SPLEEN: Unremarkable. ADRENAL GLANDS: Unremarkable. KIDNEYS AND URETERS: The kidneys are normal in size, shape, and attenuation. No hydronephrosis, hydroureter, or calculi seen. No perinephric stranding. BLADDER: Unremarkable. GASTROINTESTINAL TRACT: There is scattered stool and gas seen throughout the colon without significant distention. The small bowel loops are normal caliber. Appendix is not visualized. No inflammatory changes seen in the right lower quadrant. No free air or free fluid seen. ABDOMINAL WALL: No significant hernia is appreciated. LYMPH NODES: Normal. VASCULAR: Unremarkable. PELVIC VISCERA: Unremarkable. OSSEOUS STRUCTURES: Unremarkable. CT/CT abdomen pelvis wo IV con IMPRESSION: No acute intra-abdominal process seen. Mild constipation. No major change since the previous exam 12/18/2021. Fleischner guidelines were followed.
[2022-07-17 10:02] VITALS: BP 149/83; PULSE 68; RESP 18; TEMP 36.8; O2SAT 99; BMI 23.8
[2022-07-17 11:01] LABS: Influenza A PCR NEGATIVE (Negative); Influenza B PCR NEGATIVE (Negative); Resp Syncy Virus RNA Qual PCR NEGATIVE (Negative); SARS COV2 PCR INHOUSE NEGATIVE (Negative)
[2022-07-17 11:12] LABS: MANUAL DIFF FLAG NO
[2022-07-17 11:13] LABS: Basophils Percent Auto 0.2 % (0-2); Eosinophils Absolute Auto 0.1 X10*3/uL (0.0-0.4); Eosinophils Percent Auto 1.2 % (0-4); Hematocrit 40.3 % (37.0-47.0); Hemoglobin 13.2 g/dl (12.0-16.0); Imm Gran Abs Auto 0.01 X10*3/uL (0.00-0.03); Imm Gran Pct Auto 0.2 % (0.0-0.4); Lymphocytes Absolute Auto 1.2 X10*3/uL (1.2-4.9); Lymphocytes Percent Auto 23.8 % (20-40); Mean Corpuscular HGB Conc 32.8 g/dl (31.0-35.0); Mean Corpuscular Hemoglobin 28.4 pg (27.0-33.0); Mean Corpuscular Volume 86.9 fL (80.0-98.0); Mean Platelet Volume 9.8 fL (9.4-12.3); Monocytes Absolute Auto 0.4 X10*3/uL (0.1-1.2); Monocytes Percent Auto 8.4 % (2-11); Neutrophils Absolute Auto 3.2 x10*3/uL (2.0-8.3); Neutrophils Percent Auto 66.2 % (45-73); Platelet Count 222 X10*3/uL (160-400); Red Blood Count 4.64 X10*6/uL (4.20-5.50); Red Cell Distribution Width 12.7 % (11.0-16.0); White Blood Count 4.9 X10*3/uL (4.8-10.8)
[2022-07-17] MEDS: Acetaminophen 325 MG TABLET 975 MG PO (11:13)
[2022-07-17] MEDS: Ondansetron ODT 4 MG TAB.RAPDIS TRANSLINGU (11:14)
[2022-07-17 11:19] LABS: INTERNATIONAL NORM RATIO 1.1 (0.9-1.1); Prothrombin Time 12.3 SEC (10.0-13.1)
[2022-07-17 11:21] LABS: Appearance Urine Cloudy; Color Urine Yellow; Glucose Urine UA Negative (Negative); Leukocyte Esterase Urine Small (1+) (Negative); Nitrite Urine Negative (Negative); UMIC TRIGGER UACC YES; Urine Blood Negative (Negative); Urine Ketones Trace mg/dL (Negative); Urine Protein Negative (Neg-Trace)
[2022-07-17 11:26] LABS: Bacteria Urine Trace (None Seen); Hyaline Casts Urine 0-2 /LPF (0-2); RBC Urine 0-2 /HPF (0-2); UACC Culture Trigger YES
[2022-07-17 11:37] LABS: Alanine Aminotransferase 12 U/L (0-31); Albumin Level 4.5 g/dL (3.5-5.0); Alkaline Phosphatase 98 U/L (39-117); Anion Gap 14 (12-20); Aspartate Amino Transferase 21 U/L (5-31); Bilirubin Total 0.7 mg/dL (0.0-1.0); Blood Urea Nitrogen 23 mg/dL (9-16); Calcium 9.7 mg/dL (8.4-10.2); Carbon Dioxide 28 mmol/L (22-29); Chloride 102 mmol/L (96-108); Creatinine Clr Calc Pharmacy 59.8; Estimated Glomerular Filt Rate > 60; Glucose Random 86 mg/dL (60-115); Lipase 26 U/L (8-78); Magnesium 2.2 mg/dL (1.6-2.6); Potassium 3.6 mmol/L (3.3-5.1); Sodium 140 mmol/L (135-145); Total Protein 8.3 g/dL (6.5-8.0)
--- NOTE | 2022-07-17 12:32 | ED.ABDPAIN ---
HPI - Abdominal Pain General Chief Complaint: General Medical Stated Complaint: Body Aches Pain Time Seen by Provider: 07/17/22 10:39 Source: patient Mode of arrival: ambulatory Limitations: no limitations History of Present Illness HPI narrative: 56 yo female w/ PMHx of anxiety, HTN, GERD, and seasonal allergies presenting To the ED with generalized fatigue, malaise, nausea/vomiting, abdominal pain and body aches for the past 2 weeks with decreased p.o. intake. Reports associated burping and constipation. Reports that she last had a bowel movement yesterday although a small hard amount. Reports that this started after obtaining boosters for flu/COVID. She denies any fevers, chills, neck pain /stiffness, chest pain or shortness of breath, cough, sputum production, sore throat, nasal congestion, rhinorrhea, ear pain, back pain, dysuria, hematuria, abnormal vaginal discharge, black or bloody stools, diarrhea or any other symptoms complaints or concerns at this time. MD elicited complaint: abdominal pain Onset (ago): week(s) (2 Worse in the past few days) Pain Consistency: constant Location: diffuse Severity: mild Quality: cramping and aching Radiation: none Migration to: no migration Exacerbating factors: nothing Relieving factors: nothing Associated symptoms: nausea and constipation Related Data Previous Rx's Medication Instructions Recorded ondansetron HCl 4 mg tablet 4 mg PO Q8H PRN nausea and 10/23/20 (Zofran) vomiting #10 tabs fluticasone propionate 50 1 spray intranasal BID #16 grams 04/02/21 mcg/actuation nasal spray,suspension (Allergy Relief (fluticasone)) dicyclomine 20 mg tablet 20 mg PO BID abd cramps #14 tabs 12/18/21 diphenhydramine HCl 25 mg tablet 50 mg PO TID PRN allergic reaction 12/18/21 (Benadryl Allergy) #14 tabs ondansetron 4 mg disintegrating 4 mg PO Q6H Nausea and vomiting 12/18/21 tablet #14 tabs olopatadine 0.1 % eye drops 1 drp ophthalmic (eye) BID 7 days 04/03/22 #5 mL cetirizine 10 mg capsule (Zyrtec) 10 mg PO DAILY PRN allergy 05/05/22 symptoms #30 caps hydrochlorothiazide 25 mg tablet 25 mg PO DAILY Dizziness 90 days 06/10/22 #90 tabs lorazepam 0.5 mg tablet 0.5 mg PO BEDTIME PRN anxiety 30 06/10/22 days #30 tabs omeprazole 20 mg capsule,delayed 20 mg PO DAILY 90 days #90 caps 06/10/22 release docusate sodium 100 mg capsule 100 mg PO BID PRN Constipation #14 07/17/22 (Colace) caps nitrofurantoin 100 mg PO BID 7 days #14 caps 07/17/22 monohydrate/macrocrystals 100 mg capsule (Macrobid) ondansetron HCl 4 mg tablet 4 mg PO Q8H #14 tabs 07/17/22 polyethylene glycol 3350 17 17 g PO DAILY #238 grams 07/17/22 gram/dose oral powder (Miralax) Allergies Allergy/AdvReac Type Severity Reaction Status Date / Time lactose [LACTOSE] Allergy Severe DIARRHEA Verified 12/18/21 07:58 aspirin [Aspirin] Allergy Unknown UPSET Verified 12/18/21 07:58 STOMACH cheese Allergy Unknown Diarrhea Uncoded 04/10/21 13:56 milk Allergy Unknown Diarrhea Uncoded 04/10/21 13:56 Review of Systems Review of Systems Constitutional : No Fever, No Chills, No Night Sweats, + Fatigue, + Malaise Cardiovascular : No Chest Pain, No SOB Respiratory : No Cough, No Sputum, No Wheezing, No Dyspnea Gastrointestinal : + Nausea, + Vomiting, + Constipation, No Diarrhea, + abdominal Pain, No Hematochezia, No Melena Genitourinary : No irregular bleeding, No Dysuria, No Urinary Frequency, No Hematuria,No Urinary Incontinence, No Urgency, No Flank Pain Musculoskeletal : No joint pain, No Myalgias, No Joint Swelling Skin : No Skin Lesions, No rash Neuro : No Weakness, No Numbness, No Paresthesias, No Loss of Consciousness, No Dizziness, No Headache Heme/Lymph: No Lymphadenopathy Endocrine : No Temperature Intolerance Yes all other systems are reviewed and are negative [facility] Past Medical History Attestation statement: The following information was validated with the patient. Source: old records reviewed and nursing notes reviewed Medical History Anxiety Depression GERD (gastroesophageal reflux disease) Sinus headache Vertigo Social History Social History Alcohol intake: never Advance Directives: No Advance Directives Information Provided: No Physical Exam ED Vital Signs: Vital Signs - 24 hr 07/17/22 10:02 Temperature 98.2 F Pulse Rate 68 Respiratory Rate 18 Blood Pressure 149/83 H Pulse Oximetry 99 BMI result Body Mass Index 23.8 vital signs reviewed blood pressure 149/83. Pulse 68. Respiration 18. Temperature 98.2 degrees. Oxygen saturation 99% on room air. Appearance: Alert. Oriented X3. No acute distress. Head: Normal external exam. Normocephalic. Eyes: PERRLA. EOMI. Conjunctiva and sclera normal. Eyelids normal. ENT: Pharynx normal. Uvula midline. Moist mucous membranes. No trismus noted. No drooling noted. No muffled voice noted. Neck: Normal inspection. Neck supple. FROM. No adenopathy. No meningeal signs. CVS: Normal heart rate and rhythm. Heart sound normal. No murmurs noted. Pulses normal throughout. Respiratory: No respiratory distress. Painless inspiration. Breath sounds normal. No wheezes/rales/rhonchi noted. Chest nontender. No accessory muscle usage noted or decreased air movement noted. Abdomen: Soft and Diffusely tender. Nondistended. No guarding. No rigidity. Bowel sounds normal in all 4 quadrants. No distention noted. No organomegaly noted. No visible injury noted. No rebound tenderness. Negative Rovsing sign. Negative obturator's sign. Negative psoas sign. Negative Joesph sign. Back: No CVA tenderness. Full range of motion noted. Skin: Skin warm and dry. Normal skin color. Normal skin turgor. No rashes/lesions/lacerations noted. Extremities: Extremities exhibit normal range of motion. Extremities nontender. Neuro: Oriented X 3. No motor deficit. No sensory deficit. Reflexes normal. Normal steady gait. CN's II-XII intact bilaterally? Course Course Course Narrative: 11am - 56 yo female w/ PMHx of anxiety, HTN, GERD, and seasonal allergies presenting To the ED with generalized fatigue, malaise, nausea/vomiting, abdominal pain and body aches for the past 2 weeks with decreased p.o. intake. Reports associated burping and constipation. Reports that she last had a bowel movement yesterday although a small hard amount. Reports that this started after obtaining boosters for flu/COVID. Plan: will obtain labs, UA, COVID/RSV/ flu swab. Provide 4 mg of Zofran and 975 mg of Tylenol. Along with a CT scan abdomen pelvis with IV contrast and re-evaluate Reevaluation(s) Reevaluation #1: - Labs obtained and patient's BUN 23 although this is chronic. Total protein 8.3. Otherwise all other labs are within normal limits. Patient with a trace of leukocytes patient most likely a UTI. Patient negative for COVID/RSV/flu. - CT scan Revealed mild constipation otherwise no other acute processes noted. Therefore at this time will DC home with antibiotics for UTI and medication for constipation instructions return if any new or worsening symptoms follow up with primary care provider. Patient understands agrees with this plan. Time: 12:50 Medical Decision Making Lab Data MDM Lab Attestation statement: I reviewed the patient's lab results. Result Diagrams: 07/17/22 11:07 07/17/22 11:07 Labs: Lab Results 07/17/22 07/17/22 07/17/22 Range/Units 10:05 11:07 11:07 WBC 4.9 (4.8-10.8) X10*3/uL RBC 4.64 (4.20-5.50) X10*6/uL Hgb 13.2 (12.0-16.0) g/dl Hct 40.3 (37.0-47.0) % MCV 86.9 (80.0-98.0) fL MCH 28.4 (27.0-33.0) pg MCHC 32.8 (31.0-35.0) g/dl RDW 12.7 (11.0-16.0) % Plt Count 222 (160-400) X10*3/uL MPV 9.8 (9.4-12.3) fL Immature Gran % (Auto) 0.2 (0.0-0.4) % Neut % (Auto) 66.2 (45-73) % Lymph % (Auto) 23.8 (20-40) % [place] % (Auto) 8.4 (2-11) % Eos % (Auto) 1.2 (0-4) % Baso % (Auto) 0.2 (0-2) % Lymph # (Auto) 1.2 (1.2-4.9) X10*3/uL [place] # (Auto) 0.4 (0.1-1.2) X10*3/uL Eos # (Auto) 0.1 (0.0-0.4) X10*3/uL Baso # (Auto) 0.0 (0.0-0.2) X10*3/uL Abs Immat Gran (auto) 0.01 (0.00-0.03) X10*3/uL Absolute Neuts (auto) 3.2 (2.0-8.3) x10*3/uL Absolute Nucleated RBC 0.000 (0.0-0.012) X10*3/uL Nucleated RBC % (auto) 0.0 (0.0-0.2) /100WBC PT 12.3 (10.0-13.1) SEC INR 1.1 (0.9-1.1) Sodium (135-145) mmol/L Potassium (3.3-5.1) mmol/L Chloride (96-108) mmol/L Carbon Dioxide (22-29) mmol/L Anion Gap (12-20) BUN (9-16) mg/dL Creatinine (0.5-1.4) mg/dL Estim Creat Clear Calc Estimated GFR Random Glucose (60-115) mg/dL Calcium (8.4-10.2) mg/dL Magnesium (1.6-2.6) mg/dL Total Bilirubin (0.0-1.0) mg/dL AST (5-31) U/L ALT (0-31) U/L Alkaline Phosphatase (39-117) U/L Total Protein (6.5-8.0) g/dL Albumin (3.5-5.0) g/dL Lipase (8-78) U/L Urine Color Urine Appearance Urine pH (5.0-9.0) Ur Specific [place] (1.005-1.025) Urine Protein (Neg-Trace) mg/dL Urine Glucose (UA) (Negative) mg/dL Urine Ketones (Negative) mg/dL Urine Blood (Negative) Urine Nitrite (Negative) Ur Leukocyte Esterase (Negative) Urine RBC (0-2) /HPF Urine WBC (0-5) /HPF Ur Squamous Epith Cells (0-2) /HPF Urine Bacteria (None Seen) Hyaline Casts (0-2) /LPF Influenza Type A (PCR) NEGATIVE (Negative) Influenza Type B (PCR) NEGATIVE (Negative) RSV RNA Qual (PCR) NEGATIVE (Negative) SARS-CoV-2 RNA (RT-PCR) NEGATIVE (Negative) 07/17/22 07/17/22 Range/Units 11:07 11:11 WBC (4.8-10.8) X10*3/uL RBC (4.20-5.50) X10*6/uL Hgb (12.0-16.0) g/dl Hct (37.0-47.0) % MCV (80.0-98.0) fL MCH (27.0-33.0) pg MCHC (31.0-35.0) g/dl RDW (11.0-16.0) % Plt Count (160-400) X10*3/uL MPV (9.4-12.3) fL Immature Gran % (Auto) (0.0-0.4) % Neut % (Auto) (45-73) % Lymph % (Auto) (20-40) % [place] % (Auto) (2-11) % Eos % (Auto) (0-4) % Baso % (Auto) (0-2) % Lymph # (Auto) (1.2-4.9) X10*3/uL [place] # (Auto) (0.1-1.2) X10*3/uL Eos # (Auto) (0.0-0.4) X10*3/uL Baso # (Auto) (0.0-0.2) X10*3/uL Abs Immat Gran (auto) (0.00-0.03) X10*3/uL Absolute Neuts (auto) (2.0-8.3) x10*3/uL Absolute Nucleated RBC (0.0-0.012) X10*3/uL Nucleated RBC % (auto) (0.0-0.2) /100WBC PT (10.0-13.1) SEC INR (0.9-1.1) Sodium 140 (135-145) mmol/L Potassium 3.6 (3.3-5.1) mmol/L Chloride 102 (96-108) mmol/L Carbon Dioxide 28 (22-29) mmol/L Anion Gap 14 (12-20) BUN 23 H (9-16) mg/dL Creatinine 0.83 (0.5-1.4) mg/dL Estim Creat Clear Calc 59.8 Estimated GFR > 60 Random Glucose 86 (60-115) mg/dL Calcium 9.7 (8.4-10.2) mg/dL Magnesium 2.2 (1.6-2.6) mg/dL Total Bilirubin 0.7 (0.0-1.0) mg/dL AST 21 (5-31) U/L ALT 12 (0-31) U/L Alkaline Phosphatase 98 (39-117) U/L Total Protein 8.3 H (6.5-8.0) g/dL Albumin 4.5 (3.5-5.0) g/dL Lipase 26 (8-78) U/L Urine Color Yellow Urine Appearance Cloudy Urine pH 6.0 (5.0-9.0) Ur Specific [place] 1.020 (1.005-1.025) Urine Protein Negative (Neg-Trace) mg/dL Urine Glucose (UA) Negative (Negative) mg/dL Urine Ketones Trace (Negative) mg/dL Urine Blood Negative (Negative) Urine Nitrite Negative (Negative) Ur Leukocyte Esterase Small (1+) H (Negative) Urine RBC 0-2 (0-2) /HPF Urine WBC 6-10 H (0-5) /HPF Ur Squamous Epith Cells 11-20 (0-2) /HPF Urine Bacteria Trace (None Seen) Hyaline Casts 0-2 (0-2) /LPF Influenza Type A (PCR) (Negative) Influenza Type B (PCR) (Negative) RSV RNA Qual (PCR) (Negative) SARS-CoV-2 RNA (RT-PCR) (Negative) Independent Interpretation Interpretation: CT scan abdomen pelvis FINDINGS: LUNG BASES: The lung bases are clear. The heart size is normal. LIVER, GALLBLADDER, AND BILIARY TREE: The liver is normal in size, shape, and attenuation. No focal hepatic lesion or biliary ductal dilatation is present. The gallbladder is unremarkable with no evidence of radiopaque gallstones, gallbladder wall thickening, or obvious pericholecystic inflammatory changes.? PANCREAS: Unremarkable.? SPLEEN: Unremarkable.? ADRENAL GLANDS: Unremarkable.? KIDNEYS AND URETERS: The kidneys are normal in size, shape, and attenuation. No hydronephrosis, hydroureter, or calculi seen. No perinephric stranding. ? BLADDER: Unremarkable.? GASTROINTESTINAL TRACT: There is scattered stool and gas seen throughout the colon without significant distention. The small bowel loops are normal caliber. Appendix is not visualized. No inflammatory changes seen in the right lower quadrant. No free air or free fluid seen. ABDOMINAL WALL: No significant hernia is appreciated.? LYMPH NODES: Normal. VASCULAR: Unremarkable. PELVIC VISCERA: Unremarkable.? OSSEOUS STRUCTURES: Unremarkable.? CT/CT abdomen pelvis wo IV con IMPRESSION: No acute intra-abdominal process seen. ? Mild constipation. ? No major change since the previous exam 12/18/2021.? ? Fleischner guidelines were followed. Radiology Impression Discussion of test interpretation with radiology: I have reviewed the radiologist's reading. Medications Administered Discontinued Medications Generic Name Dose Route Start Last Admin Trade Name Freq PRN Reason Stop Dose Admin Acetaminophen 975 mg 07/17/22 11:01 07/17/22 11:13 Acetaminophen 325 Mg Tablet PO 07/17/22 11:02 975 mg ONCE ONE Administration Ondansetron HCl 4 mg 07/17/22 11:01 07/17/22 11:14 Ondansetron Odt 4 Mg Tab.Rapdis TRANSLINGU 07/17/22 11:02 4 mg ONCE ONE Administration Discharge Plan Discharge Clinical Impression: Constipation, Nausea, UTI (urinary tract infection) Patient Disposition: Home, Self-Care Prescriptions: New ondansetron HCl 4 mg tablet 4 mg PO Q8H Qty: 14 0RF nitrofurantoin monohyd/m-cryst [Macrobid] 100 mg capsule 100 mg PO BID 7 Days Qty: 14 0RF Rx Instructions: must administer with a meal/food docusate sodium [Colace] 100 mg capsule 100 mg PO BID PRN (Reason: Constipation) Qty: 14 0RF polyethylene glycol 3350 [Miralax] 17 gram/dose powder 17 g PO DAILY Qty: 238 0RF No Action Zyrtec 10 mg capsule 10 mg PO DAILY PRN (Reason: allergy symptoms) Qty: 30 3RF lorazepam 0.5 mg tablet 0.5 mg PO BEDTIME PRN (Reason: anxiety) 30 Days Qty: 30 0RF omeprazole 20 mg capsule,delayed release(DR/EC) 20 mg PO DAILY 90 Days Qty: 90 0RF hydrochlorothiazide 25 mg tablet 25 mg PO DAILY 90 Days Qty: 90 0RF ondansetron HCl [Zofran] 4 mg tablet 4 mg PO Q8H PRN (Reason: nausea and vomiting) Qty: 10 0RF fluticasone propionate [Allergy Relief (fluticasone)] 50 mcg/actuation spray,suspension 1 spray intranasal BID Qty: 16 0RF Rx Instructions: administer into each nostril ondansetron 4 mg tablet,disintegrating 4 mg PO Q6H Qty: 14 0RF dicyclomine 20 mg tablet 20 mg PO BID Qty: 14 0RF diphenhydramine HCl [Benadryl Allergy] 25 mg tablet 50 mg PO TID PRN (Reason: allergic reaction) Qty: 14 0RF olopatadine 0.1 % drops 1 drp ophthalmic (eye) BID 7 Days Qty: 5 0RF Rx Instructions: separate doses by at least 6-8 hours Referrals: Alecia Godfrey MD [Primary Care Provider] - 2 days
== END 2022-07-17 13:22 | disposition home or self-care (01) ==
PROVIDERS: Physician Assistant Medical; Emergency Provider Student in an Organized Health Care Education/Training Program; PCP Internal Medicine
DX: N39.0 Urinary tract infection, site not specified (principal); K59.00 Constipation, unspecified; R11.0 Nausea; R10.9 Unspecified abdominal pain; Z20.822 Contact with and (suspected) exposure to COVID-19
CPT/HCPCS: 0241U; 36415; 74176; 80053; 81001; 83690; 83735; 85025; 85610; 87086; 99284

== ENCOUNTER 2022-08-02 07:35 | Outpatient (REF) | payer OTHER, SELFPAY ==
[2022-08-02 07:47] LABS: MANUAL DIFF FLAG NO
[2022-08-02 08:12] LABS: Basophils Percent Auto 0.3 % (0-2); Eosinophils Absolute Auto 0.1 X10*3/uL (0.0-0.4); Eosinophils Percent Auto 1.5 % (0-4); Hematocrit 38.2 % (37.0-47.0); Hemoglobin 12.3 g/dl (12.0-16.0); Imm Gran Abs Auto 0.01 X10*3/uL (0.00-0.03); Imm Gran Pct Auto 0.3 % (0.0-0.4); Lymphocytes Absolute Auto 1.2 X10*3/uL (1.2-4.9); Lymphocytes Percent Auto 31.2 % (20-40); Mean Corpuscular HGB Conc 32.2 g/dl (31.0-35.0); Mean Corpuscular Hemoglobin 27.9 pg (27.0-33.0); Mean Corpuscular Volume 86.6 fL (80.0-98.0); Mean Platelet Volume 10.3 fL (9.4-12.3); Monocytes Absolute Auto 0.4 X10*3/uL (0.1-1.2); Monocytes Percent Auto 8.8 % (2-11); Neutrophils Absolute Auto 2.3 x10*3/uL (2.0-8.3); Neutrophils Percent Auto 57.9 % (45-73); Platelet Count 210 X10*3/uL (160-400); Red Blood Count 4.41 X10*6/uL (4.20-5.50); Red Cell Distribution Width 12.8 % (11.0-16.0)
[2022-08-02 08:43] LABS: Alanine Aminotransferase 11 U/L (0-31); Albumin Level 4.2 g/dL (3.5-5.0); Alkaline Phosphatase 95 U/L (39-117); Anion Gap 15 (12-20); Aspartate Amino Transferase 18 U/L (5-31); Bilirubin Total 0.4 mg/dL (0.0-1.0); Blood Urea Nitrogen 17 mg/dL (9-16); Calcium 9.6 mg/dL (8.4-10.2); Carbon Dioxide 29 mmol/L (22-29); Chloride 105 mmol/L (96-108); Cholesterol 213 mg/dL; Estimated Glomerular Filt Rate > 60; Glucose Fasting 95 mg/dL (60-99); HDL Cholesterol 44 mg/dL; LDL Cholesterol Calculated 129 mg/dl; Potassium 3.9 mmol/L (3.3-5.1); Sodium 145 mmol/L (135-145); Total Protein 7.8 g/dL (6.5-8.0); Triglycerides 203 mg/dL
[2022-08-02 09:11] LABS: Thyroid Stimulating Hormone 1.19 uIU/mL (0.32-4.0); Vitamin D 25-OH Total 17.2 ng/mL (>30)
[2022-08-02 09:27] LABS: Folate 17.3 ng/mL (> or = 4.0); Vitamin B12 < 148 pg/mL (200-900)
== END 2022-08-02 07:36 | disposition home or self-care (01) ==
LOC: HO.LAB 07:35
PROVIDERS: PCP Internal Medicine; Visit Provider Internal Medicine
DX: Z00.00 Encounter for general adult medical examination without abnormal findings (principal); E55.9 Vitamin D deficiency, unspecified; E53.8 Deficiency of other specified B group vitamins; K59.01 Slow transit constipation; F41.1 Generalized anxiety disorder
CPT/HCPCS: 36415; 80053; 80061; 82306; 82607; 82746; 84443; 85025

== ENCOUNTER → 2022-09-13 14:04 | Outpatient (BNVA) | payer OTHER, SELFPAY | PROVIDERS: PCP Internal Medicine; Visit Provider Internal Medicine | DX: K59.01 Slow transit constipation (principal) | CPT/HCPCS: 99202 ==

== ENCOUNTER 2023-01-12 08:04 | Emergency (ER) | payer OTHER, SELFPAY ==
--- NOTE | ~2023-01-12 | XR_ITS ---
EXAMINATION: XR ABDOMEN KUB CLINICAL INDICATION: Nausea and hard stools. COMPARISON: None available. TECHNIQUE: AP view of the abdomen. FINDINGS: There is moderate stool seen in the colon without distention. No organomegaly. No radiopaque calculi. No gross bony abnormality. XR/XR KUB IMPRESSION: Mild constipation.
[2023-01-12 08:21] VITALS: BP 138/82; BP 152/74; PULSE 70; PULSE 91; RESP 18; TEMP 36.9; O2SAT 100; O2SAT 98; BMI 26.4
[2023-01-12 08:25] VITALS: BP 152/74; PULSE 91; RESP 18; TEMP 36.9; O2SAT 99
--- NOTE | 2023-01-12 08:27 | PC.NURSE ---
Alert and oriented. Reports n/v since thur and unable to keep anything down. reports 6/10 abdominal pain. States feels constipated and last BM was last night but was hard and incomplete. Hx of gerd and states that she feels like acid is coming up from her stomach. vss.
[2023-01-12] MEDS: 0.9 % Sodium Chloride 1,000 ML 999 ML IV (08:51)
[2023-01-12] MEDS: ondansetron HCL 4 MG/2 ML VIAL IVPUSH (08:54)
[2023-01-12 08:58] LABS: MANUAL DIFF FLAG NO
[2023-01-12 08:59] LABS: Eosinophils Percent Auto 0.2 % (0-4); Hemoglobin 13.1 g/dl (12.0-16.0); Imm Gran Abs Auto 0.01 X10*3/uL (0.00-0.03); Imm Gran Pct Auto 0.2 % (0.0-0.4); Lymphocytes Absolute Auto 0.8 X10*3/uL (1.2-4.9); Lymphocytes Percent Auto 15.7 % (20-40); Mean Corpuscular Volume 87.6 fL (80.0-98.0); Mean Platelet Volume 9.9 fL (9.4-12.3); Monocytes Absolute Auto 0.4 X10*3/uL (0.1-1.2); Monocytes Percent Auto 7.8 % (2-11); Neutrophils Absolute Auto 3.9 x10*3/uL (2.0-8.3); Neutrophils Percent Auto 76.1 % (45-73); Platelet Count 210 X10*3/uL (160-400); Red Blood Count 4.68 X10*6/uL (4.20-5.50); Red Cell Distribution Width 13.1 % (11.0-16.0); White Blood Count 5.2 X10*3/uL (4.8-10.8)
--- NOTE | 2023-01-12 09:03 | ED_ITS ---
HPI - General Adult General Chief complaint: General Medical Stated complaint: NAUSEA W/VOMITING FOR DAYS PER EMS Time Seen by Provider: 01/12/23 08:18 Source: patient Mode of arrival: EMS History of Present Illness HPI narrative: This is a 57-year-old female who has recurrent issues with nausea, vomiting, GERD and states that she is been having problems with nausea and vomiting since denies any fevers, chills, states her last bowel movement was and is continued to pass flatus denies any urinary symptoms, denies any shortness of breath or chest pain/palpitations. Patient also has an extensive history of depression anxiety and lives at home with her . Related Data Previous Rx's Medication Instructions Recorded lorazepam 0.5 mg tablet 0.5 mg PO BEDTIME PRN anxiety 30 06/10/22 days #30 tabs cholecalciferol (vitamin D3) 50 50 mcg PO DAILY 90 days #90 caps 08/02/22 mcg (2,000 unit) capsule insulin syringe-needle U-100 1 mL #1 ea 08/02/22 31 gauge x 5/16 ([facility] Syringes) peg 3350-electrolytes 236 240 ml PO Q10M colonoscopy #4,000 10/04/22 gram-22.74 gram-6.74 gram-5.86 mL gram solution (Golytely) omeprazole 20 mg capsule,delayed 20 mg PO DAILY 90 days #90 caps 10/14/22 release dicyclomine 20 mg tablet 20 mg PO BID abd cramps #14 tabs 11/25/22 hydrochlorothiazide 25 mg tablet 25 mg PO DAILY Dizziness 90 days 11/25/22 #90 tabs ropinirole 0.5 mg tablet 0.5 mg PO BEDTIME 90 days #90 tabs 11/25/22 sertraline 25 mg tablet 25 mg PO DAILY 90 days #90 tabs 11/25/22 docusate sodium 100 mg capsule 100 mg PO BID PRN Constipation 90 12/09/22 (Colace) days #180 caps cyanocobalamin (vitamin B-12) 1,000 mcg IM Q4W 30 days #1 mL 12/11/22 1,000 mcg/mL injection solution cetirizine 10 mg capsule (Zyrtec) 10 mg PO DAILY PRN allergy 01/08/23 symptoms #30 caps Allergies Allergy/AdvReac Type Severity Reaction Status Date / Time lactose [LACTOSE] Allergy Severe DIARRHEA Verified 09/13/22 14:17 aspirin [Aspirin] Allergy Unknown UPSET Verified 09/13/22 14:17 STOMACH cheese Allergy Unknown Diarrhea Uncoded 09/13/22 14:17 milk Allergy Unknown Diarrhea Uncoded 09/13/22 14:17 Review of Systems Review of Systems: Pertinent positives and negatives as stated in HPI [facility] Past Medical History Source: nursing notes reviewed Medical History Anxiety Depression GERD (gastroesophageal reflux disease) Sinus headache Vertigo Surgical History Hx of colonoscopy No pertinent past surgical history Family History Family History Mother Diabetes mellitus Father No problems noted. Social History Social History Housing: Apartment Alcohol intake: current Alcohol intake frequency: holidays/special occasions only Alcohol type: beer Patient Tobacco Use Status: Never used Tobacco Smoked in Last 30 Days: No e-Cigarette/Vaping Use: Never Used Second Hand Smoke Exposure: No Use of substances other than those prescribed or required for medical reasons: No Advance Directives: No Advance Directives Information Provided: Yes Patient : No service: No Current occupational status: employed Current occupational exposures/hazards: No Cognitive needs: No Hearing needs: No Vision needs: No Physical Exam ED Vital Signs: Vital Signs - 24 hr 01/12/23 08:21 01/12/23 08:25 Temperature 98.4 F 98.4 F Pulse Rate 91 91 Respiratory Rate 18 18 Blood Pressure 152/74 H 152/74 H Pulse Oximetry 100 99 Oxygen Delivery Method Room Air Room Air BMI result Body Mass Index 26.4 VITAL SIGNS: Reviewed. GENERAL: Well developed, well nourished, in no acute distress. HEAD: Normocephalic/atraumatic EYES: PERRLA, EOMI EARS: Ext canals without abnormality NOSE: Nares patent bilateral OROPHARYNX: no oral lesions noted, posterior pharynx clear NECK: Supple, no adenopathy LUNGS: Normal breath sounds. No adventitious sounds or accessory muscle use. SpO2<99> CARDIOVASCULAR: Regular rate and rhythm without noted murmurs ABDOMEN: Soft, non-tender, non-distended with bowel sounds. MUSCULOSKELETAL: No tenderness, deformities, or effusions noted on gross inspection. EXTREMITIES: No cyanosis, clubbing or edema. SKIN: Inspection of the skin reveals no rashes NEUROLOGIC: Alert and oriented x 4. Strength and sensation to light touch were grossly intact x 4. Medications Administered Discontinued Medications Generic Name Dose Route Start Last Admin Trade Name Freq PRN Reason Stop Dose Admin Al Hydroxide/Mg Hydroxide 30 ml 01/12/23 10:23 01/12/23 10:37 Magnesium Hydrox/Alum Hydrox 30 Ml Oral.Susp PO 01/12/23 10:24 30 ml ONCE ONE Administration Famotidine 20 mg 01/12/23 08:56 01/12/23 09:12 Famotidine/Pf 20 Mg/2 Ml Vial IVPUSH 01/12/23 08:57 20 mg ONCE ONE Administration Sodium Chloride 1,000 mls @ 999 mls/hr 01/12/23 08:30 01/12/23 10:39 Ns IV 01/12/23 09:30 Infused .Q1H1M FRANNIE Infusion Lidocaine HCl 10 ml 01/12/23 10:23 01/12/23 10:37 Lidocaine Hcl Viscous 2 % 15 Ml Solution MUCOUS MEM 01/12/23 10:24 10 ml ONCE ONE Administration Ondansetron HCl 4 mg 01/12/23 08:18 01/12/23 08:54 Ondansetron Hcl 4 Mg/2 Ml Vial IVPUSH 01/12/23 08:19 4 mg ONCE ONE Administration Medical Decision Making Medical Decision Making MDM Narrative: 57-year-old female with history and clinical presentation mildly suggestive of gastritis, no clinical suspicion for pancreatitis/cholecystitis/obstruction/UTI/diverticulitis. Some clinical suspicion for constipation. On review of all investigations my interpretation is as patient has a combination of GERD and constipation, with a component of dyspepsia. Differential Diagnosis Please see the discussion above Lab Data Please see the discussion above 01/12/23 08:50 01/12/23 08:51 Labs: Lab Results 01/12/23 01/12/23 01/12/23 Range/Units 08:50 08:51 10:32 WBC 5.2 (4.8-10.8) X10*3/uL RBC 4.68 (4.20-5.50) X10*6/uL Hgb 13.1 (12.0-16.0) g/dl Hct 41.0 (37.0-47.0) % MCV 87.6 (80.0-98.0) fL MCH 28.0 (27.0-33.0) pg MCHC 32.0 (31.0-35.0) g/dl RDW 13.1 (11.0-16.0) % Plt Count 210 (160-400) X10*3/uL MPV 9.9 (9.4-12.3) fL Immature Gran % (Auto) 0.2 (0.0-0.4) % Neut % (Auto) 76.1 H (45-73) % Lymph % (Auto) 15.7 L (20-40) % [place] % (Auto) 7.8 (2-11) % Eos % (Auto) 0.2 (0-4) % Baso % (Auto) 0.0 (0-2) % Lymph # (Auto) 0.8 L (1.2-4.9) X10*3/uL [place] # (Auto) 0.4 (0.1-1.2) X10*3/uL Eos # (Auto) 0.0 (0.0-0.4) X10*3/uL Baso # (Auto) 0.0 (0.0-0.2) X10*3/uL Abs Immat Gran (auto) 0.01 (0.00-0.03) X10*3/uL Absolute Neuts (auto) 3.9 (2.0-8.3) x10*3/uL Absolute Nucleated RBC 0.000 (0.0-0.012) X10*3/uL Nucleated RBC % (auto) 0.0 (0.0-0.2) /100WBC Sodium 142 (135-145) mmol/L Potassium 3.7 (3.3-5.1) mmol/L Chloride 100 (96-108) mmol/L Carbon Dioxide 27 (22-29) mmol/L Anion Gap 19 (12-20) BUN 26 H (9-16) mg/dL Creatinine 0.85 (0.5-1.4) mg/dL Estim Creat Clear Calc 59.8 Estimated GFR > 60 Random Glucose 69 (60-115) mg/dL Calcium 10.4 H D (8.4-10.2) mg/dL Total Bilirubin 0.9 (0.0-1.0) mg/dL AST 19 (5-31) U/L ALT 11 (0-31) U/L Alkaline Phosphatase 90 (39-117) U/L Total Protein 9.0 H (6.5-8.0) g/dL Albumin 4.6 (3.5-5.0) g/dL Urine Color Yellow Urine Appearance Clear Urine pH 5.5 (5.0-9.0) Ur Specific [place] 1.020 (1.005-1.025) Urine Protein Negative (Neg-Trace) mg/dL Urine Glucose (UA) Negative (Negative) mg/dL Urine Ketones 40 (Negative) mg/dL Urine Blood Negative (Negative) Urine Nitrite Negative (Negative) Ur Leukocyte Esterase Small (1+) H (Negative) Urine RBC 0-2 (0-2) /HPF Urine WBC 6-10 H (0-5) /HPF Ur Squamous Epith Cells 6-10 (0-2) /HPF Urine Bacteria 1+ (None Seen) Hyaline Casts 3-5 (0-2) /LPF Radiology Impression Radiologist Impression: My interpretation is in agreement with radiology's impression repair External Record Review External record reviewed: Prior outpatient labs Discharge Plan Discharge Clinical Impression: GERD (gastroesophageal reflux disease), Constipation Patient Disposition: Home, Self-Care Instructions: Constipation (ED), High Fiber Diet (ED), Diet for Stomach Ulcers and Gastritis (ED), Gastroesophageal Reflux Disease (ED), Indigestion (ED), Fleet Enema (ED) Additional Instructions: 1. Resume all home medications as prescribed. 2. Recommend escalating your constipation care with MiraLax, use it 2 times a day until you are having soft bowel movements daily. 3. Please follow-up with your primary care provider in the morning. Return to the ER for any worsening symptoms. Prescriptions: No Action lorazepam 0.5 mg tablet 0.5 mg PO BEDTIME PRN (Reason: anxiety) 30 Days Qty: 30 0RF (DME) insulin syringe-needle U-100 [[facility] Syringes] 1 mL 31 gauge x 5/16 syringe See Rx Instructions .Route Qty: 1 6RF Rx Instructions: Use 1 needle once a month cholecalciferol (vitamin D3) 50 mcg (2,000 unit) capsule 50 mcg PO DAILY 90 Days Qty: 90 1RF peg 3350-electrolytes [Golytely] 236-22.74-6.74 -5.86 gram recon soln 240 ml PO Q10M Qty: 4000 0RF Rx Instructions: as per split prep instructions, until fecal effluent is clear omeprazole 20 mg capsule,delayed release(DR/EC) 20 mg PO DAILY 90 Days Qty: 90 0RF hydrochlorothiazide 25 mg tablet 25 mg PO DAILY 90 Days Qty: 90 0RF dicyclomine 20 mg tablet 20 mg PO BID Qty: 14 0RF ropinirole 0.5 mg tablet 0.5 mg PO BEDTIME 90 Days Qty: 90 1RF Rx Instructions: administer 1-3 hours before bedtime sertraline 25 mg tablet 25 mg PO DAILY 90 Days Qty: 90 1RF docusate sodium [Colace] 100 mg capsule 100 mg PO BID PRN (Reason: Constipation) 90 Days Qty: 180 0RF cyanocobalamin (vitamin B-12) 1,000 mcg/mL solution 1,000 mcg IM Q4W 30 Days Qty: 1 1RF Zyrtec 10 mg capsule 10 mg PO DAILY PRN (Reason: allergy symptoms) Qty: 30 3RF Referrals: Alecia Godfrey MD [Primary Care Provider] -
[2023-01-12 09:10] LABS: Alanine Aminotransferase 11 U/L (0-31); Albumin Level 4.6 g/dL (3.5-5.0); Alkaline Phosphatase 90 U/L (39-117); Anion Gap 19 (12-20); Aspartate Amino Transferase 19 U/L (5-31); Bilirubin Total 0.9 mg/dL (0.0-1.0); Blood Urea Nitrogen 26 mg/dL (9-16); Calcium 10.4 mg/dL (8.4-10.2); Carbon Dioxide 27 mmol/L (22-29); Chloride 100 mmol/L (96-108); Creatinine Clr Calc Pharmacy 59.8; Estimated Glomerular Filt Rate > 60; Glucose Random 69 mg/dL (60-115); Potassium 3.7 mmol/L (3.3-5.1); Sodium 142 mmol/L (135-145)
[2023-01-12] MEDS: Famotidine/PF 20 MG/2 ML VIAL IVPUSH (09:12)
[2023-01-12] MEDS: Lidocaine HCl Viscous 2 % 15 ML SOLUTION 10 ML MUCOUS MEM (10:37)
[2023-01-12] MEDS: Magnesium Hydrox/Alum Hydrox 30 ML ORAL.SUSP PO (10:37)
[2023-01-12 10:42] LABS: Appearance Urine Clear; Color Urine Yellow; Glucose Urine UA Negative (Negative); Leukocyte Esterase Urine Small (1+) (Negative); Nitrite Urine Negative (Negative); PH 5.5 (5.0-9.0); UMIC TRIGGER UACC YES; Urine Blood Negative (Negative); Urine Ketones 40 mg/dL (Negative); Urine Protein Negative (Neg-Trace)
[2023-01-12 10:54] LABS: Bacteria Urine 1+ (None Seen); RBC Urine 0-2 /HPF (0-2); UACC Culture Trigger YES
[2023-01-12] MEDS: 0.9 % Sodium Chloride 500 ML IV (11:34)
[2023-01-12 12:00] VITALS: BP 130/61; PULSE 54; RESP 16; TEMP 36.8; O2SAT 99
== END 2023-01-12 13:08 | disposition home or self-care (01) ==
PROVIDERS: Emergency Provider Student in an Organized Health Care Education/Training Program; PCP Internal Medicine
DX: K21.9 Gastro-esophageal reflux disease without esophagitis (principal); K59.00 Constipation, unspecified; R11.2 Nausea with vomiting, unspecified
CPT/HCPCS: 36415; 74018; 80053; 81001; 85025; 87086; 96361; 96374; 96375; 99284; J2405

== ENCOUNTER 2023-03-04 12:26 | Outpatient (AMB) | payer OTHER, SELFPAY ==
--- NOTE | 2023-03-04 12:41 | MHC.PC.OV ---
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 Required: No Accompanied by: Self / Same As Patient Allergies lactose [LACTOSE] Allergy (Severe, Verified 03/04/23 12:52) DIARRHEA aspirin [Aspirin] Allergy (Unknown, Verified 03/04/23 12:52) UPSET STOMACH cheese Allergy (Unknown, Uncoded 03/04/23 12:52) Diarrhea milk Allergy (Unknown, Uncoded 03/04/23 12:52) Diarrhea Medication List - Last Reconciled 03/04/23 by Alecia Jack MD cetirizine (Zyrtec) 10 mg PO DAILY PRN cholecalciferol (vitamin D3) 50 mcg PO DAILY 90 days cyanocobalamin (vitamin B-12) 1,000 mcg IM Q4W 30 days dicyclomine 20 mg PO BID docusate sodium (Colace) 100 mg PO BID PRN 90 days hydrochlorothiazide 25 mg PO DAILY 90 days insulin syringe-needle U-100 ([facility] Syringes) Use 1 needle once a month lorazepam 0.5 mg PO BEDTIME PRN 30 days omeprazole 20 mg PO DAILY 90 days peg 3350-electrolytes 236-22.74-6.74 -5.86 gram (Golytely) 240 mL PO Q10M ropinirole 0.5 mg PO BEDTIME 90 days sertraline 25 mg PO DAILY 90 days Tobacco use date assessed: 08/01/22 Dental Screening Dental Screen Date: 03/04/23 Did you have a dental visit in the last 12 months?: No Did you have a dental problem in the last 6 months where you did not have access to dental care?: No Was dental information given to patient?: Yes HPI HPI Comments History of Present Illness Details This is a 57-year-old female with hypertension, GERD, moderate recurrent major depression, anxiety and B12 deficiency that comes today for follow-up on her conditions. Blood pressure stable. GERD well controlled with medications. Depression has good days and bad days and would like counseling for depression with anxiety. Use lorazepam as needed for anxiety. Last B12 level was low and she does B12 injections once a month. I will repeat vitamin B12 levels for this matter. [facility] Medical History (Updated 03/04/23 @ 13:28 by Alecia Jack MD) Anxiety Depression GERD (gastroesophageal reflux disease) Sinus headache Vertigo Surgical History Hx of colonoscopy No pertinent past surgical history Family History Mother Diabetes mellitus Father No problems noted. Social History Housing: Apartment Alcohol intake: current Alcohol intake frequency: holidays/special occasions only Alcohol type: beer Patient Tobacco Use Status: Never used Tobacco e-Cigarette/Vaping Use: Never Used Second Hand Smoke Exposure: No service: No Current occupational status: employed Current occupational exposures/hazards: No Cognitive needs: No Hearing needs: No Vision needs: No Questionnaire Thrive Questionnaire Date Thrive assessed: 08/01/22 MARISA-7 AMB Questionnaire MARISA-7 Date MARISA - 7 assessed: 08/01/22 Source: Developed by Drs. Casey Montoya, Shilpi Gray, Gerardo Dennis and colleagues, with an educational dasha from [employer]. Review of Systems Const All systems reviewed & are unremarkable except as noted in HPI and below Eyes Reports no additional complaints, Denies change in vision and Denies other visual disturbances Card Denies chest pain at rest, Denies chest pain with activity, Denies edema, Denies irregular heart rhythm, Denies claudication, Denies dyspnea, Denies dyspnea on exertion, Denies orthopnea, Denies paroxysmal nocturnal dyspnea and Denies slow heart rate Resp Denies cough, Denies dyspnea and Denies dyspnea on exertion GI Denies abdominal pain, Denies change in bowel habits, Denies excessive flatus, Denies nausea and Denies vomiting Denies urinary incontinence, Denies urinary hesitancy and Denies urinary urgency Musc Denies abnormal gait, Denies atrophy, Denies deformity and Denies limited range of motion Skin/Breast Denies bleeding lesions, Denies changing lesions and Denies rash Neuro Denies abnormal gait and Denies lack of coordination Psych Reports anxiety, Reports depression, Reports irritability and Reports mood swings Physical exam (Primary Care) Vital Signs: Last Vital Signs Pulse 60 03/04/23 12:42 BP 122/70 03/04/23 12:42 Pulse Ox 98 03/04/23 12:42 Oxygen Delivery Method Room Air 03/04/23 12:42 BMI result Body Mass Index 25.6 Tobacco/Smoking Status: Tobacco use Status Tobacco use date assessed 08/01/22 03/04/23 12:50 Patient Tobacco Use Status Never used Tobacco 03/04/23 12:50 e-Cigarette/Vaping Use Never Used 03/04/23 12:50 Thrive Assessment: Date of Thrive Assessment Date Thrive assessed 08/01/22 03/04/23 12:50 Eyes General: appearance normal, both eyes and all related structures Eyelids: Yes eyelids normal Conjunctivae: conjunctivae normal Neck Neck: Yes normal visual inspection and Yes supple Resp Effort & Inspection: normal respiratory effort Auscultation: clear to auscultation bilaterally Cardio Jugular venous distension: no JVD Rate: regular rate Rhythm: regular rhythm Heart sounds: S1 normal heart sound present and S2 normal heart sound present Extrem General: Yes full ROM Assessment and Plan Assessment & Plan (1) Essential hypertension: Code(s): I10 - Essential (primary) hypertension Plan: Continue hydrochlorothiazide. Blood pressure goal is equal or less than 130/80. (2) Moderate recurrent major depression: Code(s): F33.1 - Major depressive disorder, recurrent, moderate Plan: Continue sertraline. (3) MARISA (generalized anxiety disorder): Code(s): F41.1 - Generalized anxiety disorder Plan: Continue sertraline. Use benzodiazepines as needed. (4) B12 deficiency: Code(s): E53.8 - Deficiency of other specified B group vitamins Plan: Repeat vitamin B12 level. (5) GERD (gastroesophageal reflux disease): Code(s): K21.9 - Gastro-esophageal reflux disease without esophagitis Plan: Continue PPIs as needed. Orders: Orders Vitamin B12 and Folate Today E53.8 - Deficiency of other specified B group vitamins Vitamin D 25-OH Total Today E55.9 - Vitamin D deficiency, unspecified Referrals Counseling Referral F33.1 - Major depressive disorder, recurrent, moderate Coding Level of Care Code Est Pt Level 4 (50423) Diagnoses Essential hypertension I10 Moderate recurrent major depression F33.1 MARISA (generalized anxiety disorder) F41.1 B12 deficiency E53.8 GERD (gastroesophageal reflux disease) K21.9 Time Spent (min) 23
[2023-03-04 12:42] VITALS: BP 122/70; PULSE 60; O2SAT 98; BMI 25.6
== END 2023-03-04 13:00 | disposition home or self-care (01) ==
PROVIDERS: PCP Internal Medicine; Visit Provider Internal Medicine
DX: I10 Essential (primary) hypertension (principal); F33.1 Major depressive disorder, recurrent, moderate; K21.9 Gastro-esophageal reflux disease without esophagitis; F41.1 Generalized anxiety disorder; E53.8 Deficiency of other specified B group vitamins
CPT/HCPCS: 99214

== ENCOUNTER 2023-03-04 13:04 | Outpatient (REF) | payer OTHER, SELFPAY ==
[2023-03-04 15:15] LABS: Vitamin D 25-OH Total 62.3 ng/mL (>30)
[2023-03-04 17:00] LABS: Folate 12.7 ng/mL (> or = 4.0); Vitamin B12 171 pg/mL (200-900)
== END 2023-03-04 13:05 | disposition home or self-care (01) ==
LOC: HO.LAB 13:04
PROVIDERS: PCP Internal Medicine; Visit Provider Internal Medicine
DX: E55.9 Vitamin D deficiency, unspecified (principal); E53.8 Deficiency of other specified B group vitamins
CPT/HCPCS: 36415; 82306; 82607; 82746

== ENCOUNTER 2023-06-12 14:54 | Emergency (ER) | payer OTHER, SELFPAY ==
[2023-06-12 15:04] VITALS: BP 162/90; PULSE 84; O2SAT 99
--- NOTE | 2023-06-12 15:05 | ED.GENADULT ---
HPI - General Adult General Chief complaint: General Medical Stated complaint: ABD PAIN,MALAVE,DIARRHEA,BODY PAIN PER EMS Related Data Previous Rx's ?Medication ?Instructions ?Recorded lorazepam 0.5 mg tablet 0.5 mg PO BEDTIME PRN anxiety 30 06/10/22 days #30 tabs insulin syringe-needle U-100 1 mL #1 ea 08/02/22 31 gauge x 5/16 ([facility] Syringes) dicyclomine 20 mg tablet 20 mg PO BID abd cramps #14 tabs 11/25/22 ropinirole 0.5 mg tablet 0.5 mg PO BEDTIME 90 days #90 tabs 11/25/22 cyanocobalamin (vitamin B-12) 1,000 mcg IM Q4W 30 days #1 mL 03/05/23 1,000 mcg/mL injection solution docusate sodium 100 mg capsule 100 mg PO BID PRN Constipation 90 04/29/23 (Colace) days #180 caps omeprazole 20 mg capsule,delayed 20 mg PO DAILY 90 days #90 caps 04/29/23 release cholecalciferol (vitamin D3) 50 50 mcg PO DAILY 90 days #90 caps 08/02/23 mcg (2,000 unit) capsule cetirizine 10 mg capsule (Zyrtec) 10 mg PO DAILY PRN allergy 10/19/23 symptoms #30 caps hydrochlorothiazide 25 mg tablet 25 mg PO DAILY Dizziness 90 days 10/19/23 #90 tabs blood pressure test kit-medium #1 ea 12/10/23 sertraline 25 mg tablet 25 mg PO DAILY 30 days #30 tabs 01/22/24 Allergies Allergy/AdvReac Type Severity Reaction Status Date / Time lactose [LACTOSE] Allergy Severe DIARRHEA Verified 12/10/23 10:09 aspirin [Aspirin] Allergy Unknown UPSET Verified 12/10/23 10:09 STOMACH cheese Allergy Unknown Diarrhea Uncoded 12/10/23 10:09 milk Allergy Unknown Diarrhea Uncoded 12/10/23 10:09 [facility] Past Medical History Medical History Vertigo Sinus headache Anxiety Depression GERD (gastroesophageal reflux disease) Surgical History Hx of colonoscopy Family History Family History Mother Diabetes mellitus Father No problems noted. Social History Social History Housing: Apartment Alcohol intake: current Alcohol intake frequency: holidays/special occasions only Alcohol type: beer Patient Tobacco Use Status: Never used Tobacco e-Cigarette/Vaping Use: Never Used Second Hand Smoke Exposure: No service: No Current occupational status: employed Current occupational exposures/hazards: No Cognitive needs: No Hearing needs: No Vision needs: No Physical Exam ED Vital Signs: BMI result Body Mass Index 21.9 Course Course Course Narrative: This is an RME: Additional HPI, ROS, PE not included below will be deferred to primary provider. 57-year-old female presents with nausea, abdominal pain, headache, diarrhea, myalgias since friday.NO sick contacts Plan- labs, viral test, urine Medical Decision Making Lab Data 06/12/23 16:31 06/12/23 16:31 Labs: Lab Results 06/12/23 Range/Units 16:31 WBC 4.7 L (4.8-10.8) X10*3/uL RBC 4.40 (4.20-5.50) X10*6/uL Hgb 12.3 (12.0-16.0) g/dl Hct 37.9 (37.0-47.0) % MCV 86.1 (80.0-98.0) fL MCH 28.0 (27.0-33.0) pg MCHC 32.5 (31.0-35.0) g/dl RDW 12.8 (11.0-16.0) % Plt Count 218 (160-400) X10*3/uL MPV 9.4 (9.4-12.3) fL Immature Gran % (Auto) 0.2 (0.0-0.4) % Neut % (Auto) 63.4 (45-73) % Lymph % (Auto) 26.6 (20-40) % [place] % (Auto) 8.1 (2-11) % Eos % (Auto) 1.5 (0-4) % Baso % (Auto) 0.2 (0-2) % Lymph # (Auto) 1.2 (1.2-4.9) X10*3/uL [place] # (Auto) 0.4 (0.1-1.2) X10*3/uL Eos # (Auto) 0.1 (0.0-0.4) X10*3/uL Baso # (Auto) 0.0 (0.0-0.2) X10*3/uL Abs Immat Gran (auto) 0.01 (0.00-0.03) X10*3/uL Absolute Neuts (auto) 3.0 (2.0-8.3) x10*3/uL Absolute Nucleated RBC 0.000 (0.0-0.012) X10*3/uL Nucleated RBC % (auto) 0.0 (0.0-0.2) /100WBC Sodium 141 (135-145) mmol/L Potassium 4.0 (3.3-5.1) mmol/L Chloride 104 (96-108) mmol/L Carbon Dioxide 31 H (22-29) mmol/L Anion Gap 10 L (12-20) BUN 12 (9-16) mg/dL Creatinine 0.76 (0.5-1.4) mg/dL Estim Creat Clear Calc 64.5 Estimated GFR > 60 Random Glucose 81 (60-115) mg/dL Calcium 9.8 (8.4-10.2) mg/dL Total Bilirubin 0.4 (0.0-1.0) mg/dL AST 18 (5-31) U/L ALT 9 (0-31) U/L Alkaline Phosphatase 88 (39-117) U/L Total Protein 8.1 H (6.5-8.0) g/dL Albumin 4.1 (3.5-5.0) g/dL Lipase 24 (8-78) U/L COVID-19 (GARCIA) Negative (Negative) COVID-19 Clin Com See Note Influenza Type A (WILBER) Negative (Negative) Influenza Type B (WILBER) Negative (Negative) Influenza A & B Note See Note Discharge Plan Discharge Clinical Impression: Eloped from emergency department Patient Disposition: Left W/O Completing Treatment Prescriptions: No Action lorazepam 0.5 mg tablet 0.5 mg PO BEDTIME PRN (Reason: anxiety) 30 Days Qty: 30 0RF (DME) insulin syringe-needle U-100 [[facility] Syringes] 1 mL 31 gauge x 5/16 syringe See Rx Instructions .Route Qty: 1 6RF Rx Instructions: Use 1 needle once a month dicyclomine 20 mg tablet 20 mg PO BID Qty: 14 0RF ropinirole 0.5 mg tablet 0.5 mg PO BEDTIME 90 Days Qty: 90 1RF Rx Instructions: administer 1-3 hours before bedtime cyanocobalamin (vitamin B-12) 1,000 mcg/mL solution 1,000 mcg IM Q4W 30 Days Qty: 1 1RF docusate sodium [Colace] 100 mg capsule 100 mg PO BID PRN (Reason: Constipation) 90 Days Qty: 180 1RF omeprazole 20 mg capsule,delayed release(DR/EC) 20 mg PO DAILY 90 Days Qty: 90 1RF cholecalciferol (vitamin D3) 50 mcg (2,000 unit) capsule 50 mcg PO DAILY 90 Days Qty: 90 1RF hydrochlorothiazide 25 mg tablet 25 mg PO DAILY 90 Days Qty: 90 1RF Zyrtec 10 mg capsule 10 mg PO DAILY PRN (Reason: allergy symptoms) Qty: 30 3RF sertraline 25 mg tablet 25 mg PO DAILY 30 Days Qty: 30 1RF (DME) blood pressure test kit-medium Kit See Rx Instructions .Route Qty: 1 0RF Rx Instructions: As directed Discharge Date/Time: 06/12/23 21:25
[2023-06-12 15:29] VITALS: BP 136/76; PULSE 67; RESP 18; TEMP 36.6; O2SAT 99; BMI 21.9
[2023-06-12 16:38] LABS: MANUAL DIFF FLAG NO
[2023-06-12 16:40] LABS: Basophils Percent Auto 0.2 % (0-2); Eosinophils Absolute Auto 0.1 X10*3/uL (0.0-0.4); Eosinophils Percent Auto 1.5 % (0-4); Hematocrit 37.9 % (37.0-47.0); Hemoglobin 12.3 g/dl (12.0-16.0); Imm Gran Abs Auto 0.01 X10*3/uL (0.00-0.03); Imm Gran Pct Auto 0.2 % (0.0-0.4); Lymphocytes Absolute Auto 1.2 X10*3/uL (1.2-4.9); Lymphocytes Percent Auto 26.6 % (20-40); Mean Corpuscular HGB Conc 32.5 g/dl (31.0-35.0); Mean Corpuscular Volume 86.1 fL (80.0-98.0); Mean Platelet Volume 9.4 fL (9.4-12.3); Monocytes Absolute Auto 0.4 X10*3/uL (0.1-1.2); Monocytes Percent Auto 8.1 % (2-11); Neutrophils Percent Auto 63.4 % (45-73); Platelet Count 218 X10*3/uL (160-400); Red Cell Distribution Width 12.8 % (11.0-16.0); White Blood Count 4.7 X10*3/uL (4.8-10.8)
[2023-06-12 16:59] LABS: COVID-19 Test Negative (Negative); IDNOW Serial# 08D9AD1C
[2023-06-12 17:00] LABS: IDNOW Serial# BCCEAD1C; Influenza A Negative (Negative); Influenza B2 Negative (Negative)
[2023-06-12 17:15] LABS: Alanine Aminotransferase 9 U/L (0-31); Albumin Level 4.1 g/dL (3.5-5.0); Alkaline Phosphatase 88 U/L (39-117); Anion Gap 10 (12-20); Aspartate Amino Transferase 18 U/L (5-31); Bilirubin Total 0.4 mg/dL (0.0-1.0); Blood Urea Nitrogen 12 mg/dL (9-16); Calcium 9.8 mg/dL (8.4-10.2); Carbon Dioxide 31 mmol/L (22-29); Chloride 104 mmol/L (96-108); Creatinine Clr Calc Pharmacy 64.5; Estimated Glomerular Filt Rate > 60; Glucose Random 81 mg/dL (60-115); Lipase 24 U/L (8-78); Sodium 141 mmol/L (135-145); Total Protein 8.1 g/dL (6.5-8.0)
== END 2023-06-12 21:25 | disposition left against medical advice (07) ==
PROVIDERS: Physician Assistant; Emergency Provider Emergency Medicine
DX: R10.9 Unspecified abdominal pain (principal); R51.9 Headache, unspecified; M79.10 Myalgia, unspecified site; R11.2 Nausea with vomiting, unspecified; Z79.899 Other long term (current) drug therapy; Z79.4 Long term (current) use of insulin; Z11.52 Encounter for screening for COVID-19; Z20.822 Contact with and (suspected) exposure to COVID-19
CPT/HCPCS: 80053; 83690; 85025; 87502; 87635; 99281; 99283

== ENCOUNTER 2023-07-02 09:26 | Outpatient (REF) | payer OTHER, SELFPAY ==
--- NOTE | ~2023-07-02 | MM_ITS ---
EXAMINATION: MM SCREENING DIGITAL BREAST TOMOSYNTHESIS, BILATERAL CLINICAL INFORMATION: Screening. Asymptomatic. COMPARISON: Mammography: This study is compared with prior exams dating back to 2016. TECHNIQUE: Digital breast tomosynthesis is performed in both the craniocaudal and mediolateral oblique views along with computer-aided detection (CAD). Synthesized 2D images are generated from the tomosynthesis. FINDINGS: There are scattered areas of fibroglandular density (ACR BI-RADS breast composition Category b). There are no significant masses, abnormal calcifications, or other abnormalities. MM/MM tomosynthesis screening BI IMPRESSION: No mammographic evidence of malignancy. ASSESSMENT: BI-RADS BI-RADS 1 - Negative RECOMMENDATION: Routine annual mammography screening. 1 year F/U This examination should not preclude the clinical evaluation of a suspicious palpable abnormality. This patient's information was entered into a reminder system with a target due date for their next mammogram.
== END 2023-07-02 09:27 | disposition home or self-care (01) ==
LOC: HO.MAMMO 09:26
PROVIDERS: PCP Internal Medicine; Visit Provider Internal Medicine
DX: Z12.31 Encounter for screening mammogram for malignant neoplasm of breast (principal)
CPT/HCPCS: 77063; 77067

== ENCOUNTER → 2023-07-02 10:15 | Outpatient (BNV) | payer OTHER, SELFPAY | PROVIDERS: PCP Internal Medicine; Visit Provider Radiology Diagnostic Radiology | DX: Z12.31 Encounter for screening mammogram for malignant neoplasm of breast (principal) | CPT/HCPCS: 77063; 77067 ==

== ENCOUNTER 2023-12-10 09:24 | Outpatient (AMB) | payer OTHER, SELFPAY ==
--- NOTE | 2023-12-10 09:51 | A.OFFPC_ITS ---
Vital Signs 12/10/23 09:52 Height 5 ft 2 in Weight 145 lb BMI 26.5 BP 120/76 Blood Pressure Location Lt brachial Position Sitting Intake Visit Reasons: Annual Exam Intake Note: Patient here for a physical exam [employer] [facility] Consultant Required: No Accompanied by: Self / Same As Patient Allergies lactose [LACTOSE] Allergy (Severe, Verified 12/10/23 10:09) DIARRHEA aspirin [Aspirin] Allergy (Unknown, Verified 12/10/23 10:09) UPSET STOMACH cheese Allergy (Unknown, Uncoded 12/10/23 10:09) Diarrhea milk Allergy (Unknown, Uncoded 12/10/23 10:09) Diarrhea Medication List - Last Reconciled 12/10/23 by Alecia Jack MD cetirizine (Zyrtec) 10 mg PO DAILY PRN cholecalciferol (vitamin D3) 50 mcg PO DAILY 90 days cyanocobalamin (vitamin B-12) 1,000 mcg IM Q4W 30 days dicyclomine 20 mg PO BID docusate sodium (Colace) 100 mg PO BID PRN 90 days hydrochlorothiazide 25 mg PO DAILY 90 days insulin syringe-needle U-100 ([facility] Syringes) Use 1 needle once a month lorazepam 0.5 mg PO BEDTIME PRN 30 days omeprazole 20 mg PO DAILY 90 days ropinirole 0.5 mg PO BEDTIME 90 days sertraline 25 mg PO DAILY 30 days Tobacco use date assessed: 12/10/23 Dental Screening Dental Screen Date: 12/10/23 Did you have a dental visit in the last 12 months?: No Did you have a dental problem in the last 6 months where you did not have access to dental care?: No Was dental information given to patient?: Patient has dentist HPI HPI Comments History of Present Illness Details This is a 58-year-old female with moderate major depression that comes for her physical exam. Last mammogram was June 2023 and was normal. Last P ap smear was 2020. Last colonoscopy was few years ago and she needs to call them to schedule a colonoscopy. No chest pain or shortness of breath. No fever or cough. No change in bowel or bladder habits. Complains of bilateral knee pain. [facility] Medical History (Updated 12/10/23 @ 10:17 by Alecia Jack MD) Vertigo Sinus headache Anxiety Depression GERD (gastroesophageal reflux disease) Surgical History Hx of colonoscopy Family History Mother Diabetes mellitus Father No problems noted. Social History Housing: Apartment Alcohol intake: current Alcohol intake frequency: holidays/special occasions only Alcohol type: beer Patient Tobacco Use Status: Never used Tobacco e-Cigarette/Vaping Use: Never Used Second Hand Smoke Exposure: No service: No Current occupational status: employed Current occupational exposures/hazards: No Cognitive needs: No Hearing needs: No Vision needs: No Questionnaire PHQ-9 Over the last 2 weeks, how often have you been bothered by any of the following problems? 1. Little interest or pleasure in doing things: not at all 2. Feeling down, depressed, or hopeless: not at all 3. Trouble falling or staying asleep, or sleeping too much: not at all 4. Feeling tired or having little energy: not at all 5. Poor appetite or overeating: not at all 6. Feeling bad about yourself - or that you are a failure or have let yourself or your family down: not at all 7. Trouble concentrating on things, such as reading the newspaper or watching television: not at all 8. Moving or speaking so slowly that other people could have noticed. Or the opposite - being so fidgety or restless that you have been moving around a lot more than usual: not at all 9. Thoughts that you would be better off or of hurting yourself in some way: not at all Total score: 0 Depression Screening Interpretation: Negative Depression Screening Done: Yes 08293 - PHQ-9 Billing: Yes Source: Developed by Drs. Casey Montoya, Shilpi Gray, Gerardo Dennis and colleagues, with an educational dasha from [employer]. Thrive Questionnaire Date Thrive assessed: 12/10/23 I am a: Patient What is your living situation today?: I have a steady place to live Within the past 12 months, did the food you bought not last and you didn't have the money to get more?: Never true Within the past 12 months, did you worry whether your food would run out before you got money to buy more?: Never true Do you have trouble paying for medicines?: No Do you have trouble getting transportation to medical appointments?: No Do you have trouble paying your heating and electricity bill?: No Do you have trouble taking care of your child, family member or friend?: No Do you have trouble with day-to-day activities such as bathing, preparing meals, shopping, managing finances, etc.?: No Are you currently unemployed and looking for a job?: No Are you interested in more education?: No Please select the resources that you would like help with: None Currently or been in a relationship where the following occur: no concerns reported THRIVE Score: 0 AUDIT C Alcohol Use Questionnaire (AUDIT-C) 1. How often do you have a drink containing alcohol?: Monthly or less 2. How many drinks containing alcohol do you have on a typical day when you are drinking?: 1 or 2 3. How often do you have six or more drinks on one occasion?: Never Total Score: 1 MARISA-7 AMB Questionnaire MARISA-7 Date MARISA - 7 assessed: 12/10/23 Feeling nervous, anxious, or on edge: 0 = Not at all Not being able to stop or control worryin = Not at all Worrying too much about different things: 0 = Not at all Trouble relaxin = Not at all Being so restless that it is hard to sit still: 0 = Not at all Becoming easily annoyed or irritable: 0 = Not at all Feeling afraid as if something awful might happen: 0 = Not at all Total MARISA-7 score (0-4 normal; 5-9 mild; 10-14 moderate; 15-21 severe): 0 Source: Developed by Drs. Casey Montoya, Shilpi Gray, Gerardo Dennis and colleagues, with an educational dasha from [employer]. MARISA-7 Assessment Billing MARISA-7 Assessment Tool: MARISA-7 Assessment 31027 Review of Systems Const All systems reviewed & are unremarkable except as noted in HPI and below Eyes Reports no additional complaints, Denies change in vision and Denies other visual disturbances Card Denies chest pain at rest, Denies chest pain with activity, Denies edema, Denies irregular heart rhythm, Denies claudication, Denies dyspnea, Denies dyspnea on exertion, Denies orthopnea, Denies paroxysmal nocturnal dyspnea and Denies slow heart rate Resp Denies cough, Denies dyspnea and Denies dyspnea on exertion Neuro Denies confusion Psych Denies confusion Physical exam (Primary Care) Vital Signs: Last Vital Signs BP 120/76 12/10/23 09:52 BMI result Body Mass Index 26.5 Tobacco/Smoking Status: Tobacco use Status Tobacco use date assessed 12/10/23 12/10/23 09:58 Patient Tobacco Use Status Never used Tobacco 12/10/23 09:58 e-Cigarette/Vaping Use Never Used 12/10/23 09:58 PHQ-9: PHQ-9 Score PHQ-9: Total score 0 12/10/23 10:15 Depression Screening Interpretation: Negative Thrive Assessment: Date of Thrive Assessment Date Thrive assessed 12/10/23 12/10/23 09:58 Currently or been in a relationship where the following occur: no concerns reported Const General: No confusion Orientation/consciousness: patient oriented x3 and No confusion HENMT Head: Yes normal to inspection, Yes normocephalic and Yes atraumatic Ears: external ears normal Eyes General: appearance normal, both eyes and all related structures Eyelids: Yes eyelids normal Conjunctivae: conjunctivae normal Neck Neck: Yes normal visual inspection and Yes supple Resp Effort & Inspection: normal respiratory effort Auscultation: clear to auscultation bilaterally Cardio Jugular venous distension: no JVD Rate: regular rate Rhythm: regular rhythm Heart sounds: S1 normal heart sound present and S2 normal heart sound present GI Inspection: Yes normal to inspection Palpation (GI): Soft to palpation and nontender Auscultation: normal bowel sounds Skin General skin exam: no rashes or lesions noted Neuro General: patient oriented x3, no focal motor deficits and No confusion Extrem General: Yes full ROM Assessment and Plan Assessment & Plan (1) Physical exam: Code(s): Z00.00 - Encounter for general adult medical examination without abnormal findings Plan: Repeat in a year. (2) Moderate recurrent major depression: Code(s): F33.1 - Major depressive disorder, recurrent, moderate Plan: Continue SSRIs. Orders: Orders 2 XR knee RT 2V Today M25.561 - Pain in right knee Comprehensive [place]. Panel Fast Today I10 - Essential (primary) hypertension XR knee LT 2V Today M25.562 - Pain in left knee Vitamin D 25-OH Total Today E55.9 - Vitamin D deficiency, unspecified Vitamin B12 and Folate Today E53.8 - Deficiency of other specified B group vitamins Lipid Panel Today I10 - Essential (primary) hypertension Thyroid Stimulating Hormone Today K59.09 - Other constipation Medications: New blood pressure test kit-medium As directed 1 ea 0RF I10 - Essential (primary) hypertension Coding Level of Care Code Est Pt Prev Care 40-64y(81709) Diagnoses Physical exam Z00.00 Moderate recurrent major depression F33.1 Additional Codes MARISA-7 Assessment Billing - MARISA-7 Assessment Tool: MARISA-7 Assessment 47650 ([id number]) Time Spent (min) 32
[2023-12-10 09:52] VITALS: BP 120/76; BMI 26.5
== END 2023-12-10 10:20 | disposition home or self-care (01) ==
PROVIDERS: Visit Provider Internal Medicine
DX: Z00.00 Encounter for general adult medical examination without abnormal findings (principal); F33.1 Major depressive disorder, recurrent, moderate
CPT/HCPCS: 99396

== ENCOUNTER 2023-12-11 09:25 | Outpatient (REF) | payer OTHER, SELFPAY ==
--- NOTE | ~2023-12-11 | XR_ITS ---
EXAMINATION: Bilateral knee series CLINICAL INFORMATION: Pain in right and left knee COMPARISON: None. TECHNIQUE: 2 views of the right knee. 2 views of the left knee. FINDINGS: Right knee: The bones joints and soft tissues are normal without effusion. Left knee: The bones joints and soft tissues are normal without effusion. XR/XR knee LT 2V IMPRESSION: RIGHT KNEE: Normal. LEFT KNEE: Normal.
--- NOTE | ~2023-12-11 | XR_ITS ---
EXAMINATION: Bilateral knee series CLINICAL INFORMATION: Pain in right and left knee COMPARISON: None. TECHNIQUE: 2 views of the right knee. 2 views of the left knee. FINDINGS: Right knee: The bones joints and soft tissues are normal without effusion. Left knee: The bones joints and soft tissues are normal without effusion. XR/XR knee RT 2V IMPRESSION: RIGHT KNEE: Normal. LEFT KNEE: Normal.
[2023-12-11 10:28] LABS: Alanine Aminotransferase 14 U/L (0-31); Albumin Level 4.1 g/dL (3.5-5.0); Alkaline Phosphatase 78 U/L (39-117); Anion Gap 13 (12-20); Aspartate Amino Transferase 19 U/L (5-31); Bilirubin Total 0.3 mg/dL (0.0-1.0); Blood Urea Nitrogen 13 mg/dL (9-16); Calcium 9.6 mg/dL (8.4-10.2); Carbon Dioxide 29 mmol/L (22-29); Chloride 104 mmol/L (96-108); Cholesterol 224 mg/dL (<200); Estimated Glomerular Filt Rate > 60; Glucose Fasting 95 mg/dL (60-99); HDL Cholesterol 44 mg/dL (>40); LDL Cholesterol Calculated 143 mg/dL (<100); Sodium 142 mmol/L (135-145); Total Protein 8.2 g/dL (6.5-8.0); Triglycerides 186 mg/dL (<150)
[2023-12-11 10:44] LABS: Thyroid Stimulating Hormone 0.61 uIU/mL (0.32-4.0); Vitamin D 25-OH Total 63.4 ng/mL (>30)
[2023-12-11 11:22] LABS: Folate 16.7 ng/mL (> or = 4.0); Vitamin B12 211 pg/mL (200-900)
== END 2023-12-11 09:26 | disposition home or self-care (01) ==
LOC: HO.LAB 09:25
PROVIDERS: PCP Internal Medicine; Visit Provider Internal Medicine
DX: M25.562 Pain in left knee (principal); M25.561 Pain in right knee; I10 Essential (primary) hypertension; K59.09 Other constipation; E53.8 Deficiency of other specified B group vitamins; E55.9 Vitamin D deficiency, unspecified
CPT/HCPCS: 36415; 73560; 80053; 80061; 82306; 82607; 82746; 84443

== ENCOUNTER 2024-03-06 11:23 | Emergency (ER) | payer OTHER, SELFPAY ==
--- NOTE | ~2024-03-06 | XR_ITS ---
EXAMINATION: XR CHEST CLINICAL INFORMATION: Cough COMPARISON: December 01, 2021 TECHNIQUE: 2 views of the chest were obtained. FINDINGS: No significant abnormality is noted involving the heart, lungs, mediastinum, bony thorax or soft tissues. XR/XR chest 2V IMPRESSION: No acute disease.
[2024-03-06 11:25] VITALS: BP 144/73; PULSE 71; O2SAT 96
[2024-03-06 11:36] VITALS: BP 131/83; PULSE 61; RESP 16; TEMP 36.4; O2SAT 97; BMI 25.6
--- NOTE | 2024-03-06 11:36 | ED.GENADULT ---
HPI - General Adult General Chief complaint: Upper Respiratory Symptoms Stated complaint: HEAD COLD FROM HOME PER EMS Time Seen by Provider: 03/06/24 11:39 Source: patient and EMS Mode of arrival: EMS Limitations: no limitations History of Present Illness HPI narrative: Patient is a 58-year-old female who presents emergency department for evaluation of URI symptoms including cough, nasal congestion, intermittent headache, body aches, chills sneezing. Denies any known sick contacts. Symptom onset was approximately 5-6 days ago. Has been taking Tylenol with some improvement in her symptoms. Denies associated dizziness, lightheadedness, vision changes, neck pain, neck stiffness, chest pain, shortness of breath, numbness or tingling of her extremities, nausea vomiting or abdominal pain. Related Data Previous Rx's ?Medication ?Instructions ?Recorded lorazepam 0.5 mg tablet 0.5 mg PO BEDTIME PRN anxiety 30 06/10/22 days #30 tabs insulin syringe-needle U-100 1 mL #1 ea 08/02/22 31 gauge x 5/16 ([facility] Syringes) dicyclomine 20 mg tablet 20 mg PO BID abd cramps #14 tabs 11/25/22 ropinirole 0.5 mg tablet 0.5 mg PO BEDTIME 90 days #90 tabs 11/25/22 cyanocobalamin (vitamin B-12) 1,000 mcg IM Q4W 30 days #1 mL 03/05/23 1,000 mcg/mL injection solution docusate sodium 100 mg capsule 100 mg PO BID PRN Constipation 90 04/29/23 (Colace) days #180 caps hydrochlorothiazide 25 mg tablet 25 mg PO DAILY Dizziness 90 days 10/19/23 #90 tabs blood pressure test kit-medium #1 ea 12/10/23 sertraline 25 mg tablet 25 mg PO DAILY 30 days #30 tabs 01/22/24 cholecalciferol (vitamin D3) 50 50 mcg PO DAILY 90 days #90 caps 02/02/24 mcg (2,000 unit) capsule omeprazole 20 mg capsule,delayed 20 mg PO DAILY 90 days #90 caps 02/02/24 release cetirizine 10 mg capsule (Zyrtec) 10 mg PO DAILY PRN allergy 02/21/24 symptoms #30 caps Allergies Allergy/AdvReac Type Severity Reaction Status Date / Time lactose [LACTOSE] Allergy Severe DIARRHEA Verified 03/06/24 11:37 aspirin [Aspirin] Allergy Unknown UPSET Verified 03/06/24 11:37 STOMACH cheese Allergy Unknown Diarrhea Uncoded 12/10/23 10:09 milk Allergy Unknown Diarrhea Uncoded 12/10/23 10:09 Review of Systems Review of Systems: Yes all other systems are reviewed and are negative [facility] Past Medical History Attestation statement: The following information was validated with the patient. Source: old records reviewed Medical History Vertigo Sinus headache Anxiety Depression GERD (gastroesophageal reflux disease) Surgical History Hx of colonoscopy Family History Family History Mother Diabetes mellitus Father No problems noted. Social History Social History Housing: Apartment Alcohol intake: current Alcohol intake frequency: holidays/special occasions only Alcohol type: beer Patient Tobacco Use Status: Never used Tobacco e-Cigarette/Vaping Use: Never Used Second Hand Smoke Exposure: No Advance Directives: No Advance Directives Information Provided: No service: No Current occupational status: employed Current occupational exposures/hazards: No Cognitive needs: No Hearing needs: No Vision needs: No Physical Exam ED Vital Signs: Vital Signs - 24 hr 03/06/24 11:36 03/06/24 13:50 Temperature 97.5 F 97.5 F Pulse Rate 61 61 Respiratory Rate 16 16 Blood Pressure 131/83 131/83 Pulse Oximetry 97 97 Oxygen Delivery Method Room Air Room Air BMI result Body Mass Index 25.6 Appearance: Alert.?Oriented to person, place and time. No acute distress.?Normal affect. Eyes: Pupils equal, round and reactive to light.? ENT: Pharynx normal.??TM normal bilaterally. Bilateral frontal sinus tenderness upon palpation. No maxillary sinus tenderness Neck: Normal inspection.? Neck supple.??No cervical adenopathy. CVS: Heart sounds normal. Normal heart rate and rhythm.? Pulses normal.?? Respiratory: No respiratory distress.? Lung sounds clear to auscultation bilaterally?? Skin: Skin warm and dry.? Normal skin color.? Extremities: No lower extremity edema.? No calf ttp? Neuro: Moves all extremities spontaneously. Sensation intact bilaterally. Ambulates with normal steady gait. Course Course Course Narrative: This is a rapid medical exam performed by Korey Luna NP: Additional HPI, ROS, PE not included below will be deferred to primary provider. Patient is a 58-year-old female with history of HTN, migraines, arthritis, GERD, depression and anxiety presenting to the emergency department with complaint of congestion and cough since Friday or Friday. Headache today, rates at 6/10. Dizziness before which has improved. Took Tylenol [employer]. Plans: viral and strep swabs, cxr Medical Decision Making Medical Decision Making [facility] Narrative: Patient is a 58-year-old female, presenting for evaluation of upper respiratory symptoms. COVID-19 testing is positive Influenza testing negative. At this time history and physical exam not consistent with ACS/PE/pneumonia. She is experiencing an intermittent headache, has no focal neurological deficits to suggest acute intracranial pathology, no nuchal rigidity to indicate meningitis. Well-appearing, nontoxic, afebrile, no tachycardia or tachypnea/hypoxia. Speaking clear full sentences, ambulatory with steady gait. Discussed conservative treatment including rest, hydration, Tylenol/ibuprofen as needed for fever and body aches, saline nasal spray, humidifier, [id number] cold medication. Advised to follow-up with primary care provider as needed, discussed reasons to return back to the emergency department. All questions were answered. Patient discharged home in stable condition. Differential Diagnosis Differential Diagnoses: The differential diagnosis associated with the presentation includes ( See narrative above) Admission/Observation Consideration of admission/observation: Escalation of care including admission/observation considered ( see narrative above) Lab Data [facility] Lab Attestation statement: I reviewed the patient's lab results. ( see narrative above) Labs: Lab Results 03/06/24 Range/Units 11:47 Influenza Type A (PCR) NEGATIVE (Negative) Influenza Type B (PCR) NEGATIVE (Negative) RSV RNA Qual (PCR) NEGATIVE (Negative) SARS-CoV-2 RNA (RT-PCR) POSITIVE A (Negative) S. pyogenes GrpA WILBER Negative (Negative) Independent Interpretation I performed an independent interpretation of an: Plain X-Ray (No consolidation or infiltrate) Radiology Impression Discussion of test interpretation with radiology: I have reviewed the radiologist's reading. Prescription Management I considered prescription management with: Pain Medication ( acetaminophen/ibuprofen) Discharge Plan Discharge Clinical Impression: COVID-19 Patient Disposition: Home, Self-Care Instructions: COVID-19 (Coronavirus Disease 2019) (ED) Additional Instructions: Be sure to rest, stay well hydrated drinking plenty of fluids, eat small frequent meals. Tylenol/ibuprofen can be used as needed for fever/pain. [id number] cold medications may be helpful as well for symptoms. Saline nasal spray, humidifier may be helpful for nasal congestion. You may return to the emergency department with any new or worsening symptoms or concerns. Follow-up with your primary care provider as needed. Should remain out of school/ work until symptoms have resolved and have been without a fever for 24 hours without the use of Tylenol or ibuprofen. Prescriptions: No Action lorazepam 0.5 mg tablet 0.5 mg PO BEDTIME PRN (Reason: anxiety) 30 Days Qty: 30 0RF (DME) insulin syringe-needle U-100 [[facility] Syringes] 1 mL 31 gauge x 5/16 syringe See Rx Instructions .Route Qty: 1 6RF Rx Instructions: Use 1 needle once a month dicyclomine 20 mg tablet 20 mg PO BID Qty: 14 0RF ropinirole 0.5 mg tablet 0.5 mg PO BEDTIME 90 Days Qty: 90 1RF Rx Instructions: administer 1-3 hours before bedtime cyanocobalamin (vitamin B-12) 1,000 mcg/mL solution 1,000 mcg IM Q4W 30 Days Qty: 1 1RF docusate sodium [Colace] 100 mg capsule 100 mg PO BID PRN (Reason: Constipation) 90 Days Qty: 180 1RF hydrochlorothiazide 25 mg tablet 25 mg PO DAILY 90 Days Qty: 90 1RF sertraline 25 mg tablet 25 mg PO DAILY 30 Days Qty: 30 1RF cholecalciferol (vitamin D3) 50 mcg (2,000 unit) capsule 50 mcg PO DAILY 90 Days Qty: 90 1RF omeprazole 20 mg capsule,delayed release(DR/EC) 20 mg PO DAILY 90 Days Qty: 90 1RF Zyrtec 10 mg capsule 10 mg PO DAILY PRN (Reason: allergy symptoms) Qty: 30 1RF (DME) blood pressure test kit-medium Kit See Rx Instructions .Route Qty: 1 0RF Rx Instructions: As directed Referrals: Alecia Godfrey MD [Primary Care Provider] - Stand Alone Forms: Work/School Release Interventions: ED Discharge Assessment Last Done: 03/06/24 13:50 Discharge Date/Time: 03/06/24 12:50 Print Language: Korean
[2024-03-06 12:12] LABS: IDNOW Serial# 08D9AD1C; Strep A Nucleic Acid Negative (Negative)
[2024-03-06 12:35] LABS: Influenza A PCR NEGATIVE (Negative); Influenza B PCR NEGATIVE (Negative); Resp Syncy Virus RNA Qual PCR NEGATIVE (Negative); SARS COV2 PCR INHOUSE POSITIVE (Negative)
[2024-03-06 13:50] VITALS: BP 131/83; PULSE 61; RESP 16; TEMP 36.4; O2SAT 97
== END 2024-03-06 12:50 | disposition home or self-care (01) ==
PROVIDERS: Registered Nurse Emergency; Emergency Provider Emergency Medicine; PCP Internal Medicine
DX: U07.1 COVID-19 (principal); R05.9 Cough, unspecified
CPT/HCPCS: 0241U; 71046; 87651; 99282; 99283

== ENCOUNTER 2024-03-09 09:25 | Emergency (ER) | payer OTHER, SELFPAY ==
[2024-03-09 09:29] VITALS: BP 146/80; PULSE 69; RESP 19; TEMP 36.6; O2SAT 98; BMI 25.6
--- NOTE | 2024-03-09 10:20 | ED_ITS ---
HPI - General Adult General Chief complaint: Upper Respiratory Symptoms Stated complaint: headache and cough Time Seen by Provider: 03/09/24 09:53 Source: patient and RN notes reviewed Mode of arrival: ambulatory Limitations: no limitations History of Present Illness ED Provider: Jewell Moore PA-C HPI narrative: This is a 58-year-old female who presents emergency department with complaints of ongoing headache and cough. Patient was seen here 3 days ago and tested positive for COVID. She has been taking Tylenol for her symptoms. She admits that she is only drinking soda, denies drinking water or any electrolytes. She states that she does not feel like her symptoms are worsening however states that they are just not getting better. She denies any fevers, chills, body aches, chest pain, shortness of breath, abdominal pain, nausea, vomiting or diarrhea. She works as a [employer]. No other complaints or concerns at this time. MD complaint: Cough, headache Onset (ago): day(s) Relieving factors: none Exacerbating factors: none Associated symptoms: cough Treatments prior to arrival: none Related Data Previous Rx's ?Medication ?Instructions ?Recorded lorazepam 0.5 mg tablet 0.5 mg PO BEDTIME PRN anxiety 30 06/10/22 days #30 tabs insulin syringe-needle U-100 1 mL #1 ea 08/02/22 31 gauge x 5/16 (Advocate Syringes) dicyclomine 20 mg tablet 20 mg PO BID abd cramps #14 tabs 11/25/22 ropinirole 0.5 mg tablet 0.5 mg PO BEDTIME 90 days #90 tabs 11/25/22 cyanocobalamin (vitamin B-12) 1,000 mcg IM Q4W 30 days #1 mL 03/05/23 1,000 mcg/mL injection solution docusate sodium 100 mg capsule 100 mg PO BID PRN Constipation 90 04/29/23 (Colace) days #180 caps hydrochlorothiazide 25 mg tablet 25 mg PO DAILY Dizziness 90 days 10/19/23 #90 tabs blood pressure test kit-medium #1 ea 12/10/23 sertraline 25 mg tablet 25 mg PO DAILY 30 days #30 tabs 01/22/24 cholecalciferol (vitamin D3) 50 50 mcg PO DAILY 90 days #90 caps 02/02/24 mcg (2,000 unit) capsule omeprazole 20 mg capsule,delayed 20 mg PO DAILY 90 days #90 caps 02/02/24 release cetirizine 10 mg capsule (Zyrtec) 10 mg PO DAILY PRN allergy 02/21/24 symptoms #30 caps acetaminophen 500 mg tablet 500 mg PO Q6H PRN fever or pain 03/09/24 (Tylenol Extra Strength) #30 tabs benzonatate 100 mg capsule 100 mg PO TID PRN cough #14 caps 03/09/24 Allergies Allergy/AdvReac Type Severity Reaction Status Date / Time lactose [LACTOSE] Allergy Severe DIARRHEA Verified 03/09/24 09:32 aspirin [Aspirin] Allergy Unknown UPSET Verified 03/09/24 09:32 STOMACH cheese Allergy Unknown Diarrhea Uncoded 03/09/24 09:32 milk Allergy Unknown Diarrhea Uncoded 03/09/24 09:32 Review of Systems Review of Systems: Yes all other systems are reviewed and are negative Constitutional: Constitutional: Reports as per [facility] Past Medical History Medical History Vertigo Sinus headache Anxiety Depression GERD (gastroesophageal reflux disease) Surgical History Hx of colonoscopy Family History Family History Mother Diabetes mellitus Father No problems noted. Social History Social History Housing: Apartment Alcohol intake: current Alcohol intake frequency: holidays/special occasions only Alcohol type: beer Patient Tobacco Use Status: Never used Tobacco e-Cigarette/Vaping Use: Never Used Second Hand Smoke Exposure: No Advance Directives: No Advance Directives Information Provided: Yes service: No Current occupational status: employed Current occupational exposures/hazards: No Cognitive needs: No Hearing needs: No Vision needs: No Physical Exam ED Vital Signs: Vital Signs - 24 hr 03/09/24 09:29 03/09/24 10:38 03/09/24 11:20 Temperature 98 F 97.9 F Pulse Rate 69 61 63 Respiratory Rate 19 14 16 Blood Pressure 146/80 H 150/83 H 151/78 H Pulse Oximetry 98 98 98 Oxygen Delivery Method Room Air Room Air Room Air BMI result Body Mass Index 25.6 Const General: cooperative, comfortable and no acute distress Orientation/consciousness: patient oriented x3 Limitations: no limitations HENMT Head: Yes normal to inspection, Yes normocephalic and Yes atraumatic Ears: hearing grossly normal bilaterally and TM's normal bilaterally General nose exam: Normal external nose present Face and sinus: Yes normal facial exam Mouth: Normal oral and palatal mucosa present, oropharynx normal and moist mucous membranes Throat: Yes posterior oropharynx normal Eyes General: appearance normal, both eyes and all related structures Eyelids: Yes eyelids normal Conjunctivae: conjunctivae normal Sclerae: sclerae normal Pupils: Equal, round and reactive pupils present EOM: EOMs intact bilaterally Neck Neck: Yes normal visual inspection, Yes full ROM and Yes no lymphadenopathy Lymphatic: no lymphadenopathy noted Chest Chest palpation & inspection: normal inspection of the chest Resp Effort & Inspection: normal respiratory effort and able to speak in complete sentences Auscultation: clear to auscultation bilaterally, no crackles, no rales, no rhonchi and no wheezes Cardio Rate: regular rate Rhythm: regular rhythm Heart sounds: S1 normal heart sound present and S2 normal heart sound present GI Inspection: Yes normal to inspection Skin General skin exam: no rashes or lesions noted Trauma: no lacerations or abrasions Wounds: no wounds Neuro General: patient oriented x3 and moves all extremities Cranial nerves: Yes CN's II-XII intact bilaterally and Yes Equal, round and reactive pupils present Cognition (Neuro): normal cognition Gait exam (Neuro): Normal gait present Motor exam (neuro): 5/5 motor strength present throughout and Pronator motor function not present Extrem General: Yes normal to inspection Right upper extremity: normal to inspection Left upper extremity: normal to inspection Right lower extremity: normal to inspection Left lower extremity: normal to inspection Medical Decision Making Medical Decision Making MDM Narrative: This is a [id number]-female who presents to the ER with complaints of headache and cough x 1 week. Patient was seen here 3 days ago and tested positive for COVID. She had a normal chest x-ray. Lungs are clear to auscultation bilaterally today. On arrival, patient mildly hypertensive otherwise afebrile. She is neurologically intact. She is taking Tylenol for her symptoms which has provided her with some relief. She admits that she has not been staying well hydrated, states that she only drinks soda. Discussed the importance of staying well hydrated, getting plenty of rest and continuing taking Tylenol. Patient prescribed Tessalon Perles to help with dry cough. Advised follow-up with her PCP. She understands and agrees with plan. Patient stable for discharge. Differential Diagnosis Differential Diagnoses: The differential diagnosis associated with the presentation includes COVID, URI, pneumonia-unlikely, sinusitis Discharge Plan Discharge Clinical Impression: COVID-19 Patient Disposition: Home, Self-Care Instructions: COVID-19 (Coronavirus Disease 2019) (ED) Additional Instructions: You were seen in the emergency department for ongoing cough and headaches. You tested positive for COVID 3 days ago. COVID is a virus that can cause you to be symptomatic for several days up to several weeks. It is very important that you continue to get plenty of rest, drink plenty of fluids (water), and take Tylenol as prescribed. I am also prescribing you a medication called Tessalon. This is a medication to help alleviate the ongoing cough you are experiencing. Please follow-up with your primary care physician, call today to make an appointment. If any new or worsening symptoms occur including but not limited to chest pain, severe shortness for breath, severe headache, please seek your nearest emergency room. Prescriptions: New benzonatate 100 mg capsule 100 mg PO TID PRN (Reason: cough) Qty: 14 0RF acetaminophen [Tylenol Extra Strength] 500 mg tablet 500 mg PO Q6H PRN (Reason: fever or pain) Qty: 30 0RF No Action lorazepam 0.5 mg tablet 0.5 mg PO BEDTIME PRN (Reason: anxiety) 30 Days Qty: 30 0RF (DME) insulin syringe-needle U-100 [[facility]ocate Syringes] 1 mL 31 gauge x 5/16 syringe See Rx Instructions .Route Qty: 1 6RF Rx Instructions: Use 1 needle once a month dicyclomine 20 mg tablet 20 mg PO BID Qty: 14 0RF ropinirole 0.5 mg tablet 0.5 mg PO BEDTIME 90 Days Qty: 90 1RF Rx Instructions: administer 1-3 hours before bedtime cyanocobalamin (vitamin B-12) 1,000 mcg/mL solution 1,000 mcg IM Q4W 30 Days Qty: 1 1RF docusate sodium [Colace] 100 mg capsule 100 mg PO BID PRN (Reason: Constipation) 90 Days Qty: 180 1RF hydrochlorothiazide 25 mg tablet 25 mg PO DAILY 90 Days Qty: 90 1RF sertraline 25 mg tablet 25 mg PO DAILY 30 Days Qty: 30 1RF cholecalciferol (vitamin D3) 50 mcg (2,000 unit) capsule 50 mcg PO DAILY 90 Days Qty: 90 1RF omeprazole 20 mg capsule,delayed release(DR/EC) 20 mg PO DAILY 90 Days Qty: 90 1RF Zyrtec 10 mg capsule 10 mg PO DAILY PRN (Reason: allergy symptoms) Qty: 30 1RF (DME) blood pressure test kit-medium Kit See Rx Instructions .Route Qty: 1 0RF Rx Instructions: As directed Stand Alone Forms: Work/School Release Interventions: ED Discharge Assessment Last Done: 03/09/24 11:20 Discharge Date/Time: 03/09/24 11:20 Print Language: Swedish
[2024-03-09 10:38] VITALS: BP 150/83; PULSE 61; RESP 14; O2SAT 98
[2024-03-09 11:20] VITALS: BP 151/78; PULSE 63; RESP 16; TEMP 36.6; O2SAT 98
== END 2024-03-09 11:20 | disposition home or self-care (01) ==
PROVIDERS: Emergency Provider Emergency Medicine; PCP Internal Medicine
DX: U07.1 COVID-19 (principal)
CPT/HCPCS: 99283

== ENCOUNTER 2024-03-16 08:25 | Outpatient (AMB) | payer OTHER, SELFPAY ==
[2024-03-16 08:37] VITALS: BP 108/82; PULSE 58; O2SAT 97; BMI 26.0
--- NOTE | 2024-03-16 08:37 | A.OFFPC_ITS ---
Vital Signs 03/16/24 08:37 Height 5 ft 2 in Weight 142 lb 0.4 oz BMI 26.0 BP 108/82 Blood Pressure Location Lt brachial Position Sitting Pulse 58 Pulse Source Pulse Oximeter Pulse Oximetry (%) 97 Oxygen Delivery Method Room Air Intake Visit Reasons: [facility] 03/06 COVID+ still coughing/headaches Intake Note: Patient is here to follow-up after a visit the emergency department at [facility] on 03/06/24 Medical Translator Required: No Allergies lactose [LACTOSE] Allergy (Severe, Verified 03/16/24 08:38) DIARRHEA aspirin [Aspirin] Allergy (Unknown, Verified 03/16/24 08:38) UPSET STOMACH cheese Allergy (Unknown, Uncoded 03/16/24 08:38) Diarrhea milk Allergy (Unknown, Uncoded 03/16/24 08:38) Diarrhea Medication List - Last Reconciled 03/16/24 by Mona Duncan PA-C acetaminophen (Tylenol Extra Strength) 500 mg PO Q6H PRN benzonatate 100 mg PO TID PRN blood pressure test kit-medium As directed cetirizine (Zyrtec) 10 mg PO DAILY PRN cholecalciferol (vitamin D3) 50 mcg PO DAILY 90 days cyanocobalamin (vitamin B-12) 1,000 mcg IM Q4W 30 days dicyclomine 20 mg PO BID docusate sodium (Colace) 100 mg PO BID PRN 90 days hydrochlorothiazide 25 mg PO DAILY 90 days insulin syringe-needle U-100 (Advocate Syringes) Use 1 needle once a month lorazepam 0.5 mg PO BEDTIME PRN 30 days omeprazole 20 mg PO DAILY 90 days ropinirole 0.5 mg PO BEDTIME 90 days sertraline 25 mg PO DAILY 30 days Tobacco use date assessed: 12/10/23 Dental Screening Dental Screen Date: 12/10/23 HPI [facility] 03/06 COVID+ still coughing/headaches HPI Details 58-year-old female with past medical his tory of anxiety, depression, GERD, hypertension last seen by Dr. Law november 2023 coming in for hospital follow up.? In review of the notes, patient went to [facility] ED 03/06/2024 for evaluation of URI symptoms found to have COVID discharged home.? Patient returned to [facility] ED 03/09/2024 for persistent headache and cough in the setting of COVID.? Chest x- ray negative and discharged home with benzonatate and Tylenol. Today she mentioned she is still having occasional headaches but the cough is improving. She takes Tylenol as needed for the headaches which has been helping. She needs a repeat COVID test for her employer to show she has negative. She has no other concerns today. [facility] Medical History Vertigo Sinus headache Anxiety Depression GERD (gastroesophageal reflux disease) Surgical History Hx of colonoscopy Family History Mother Diabetes mellitus Father No problems noted. Social History Housing: Apartment Alcohol intake: current Alcohol intake frequency: holidays/special occasions on ly Alcohol type: beer Patient Tobacco Use Status: Never used Tobacco e-Cigarette/Vaping Use: Never Used Second Hand Smoke Exposure: No service: No Current occupational status: employed Current occupational exposures/hazards: No Cognitive needs: No Hearing needs: No Vision needs: No Questionnaire Thrive Questionnaire Date Thrive assessed: 12/10/23 AUDIT C Alcohol Use Questionnaire (AUDIT-C) 1. How often do you have a drink containing alcohol?: Monthly or less 2. How many drinks containing alcohol do you have on a typical day when you are drinking?: 1 or 2 3. How often do you have six or more drinks on one occasion?: Never Total Score: 1 MARISA-7 AMB Questionnaire MARISA-7 Date MARISA - 7 assessed: 12/10/23 Source: Developed by Drs. Casey Montoya, Shilpi Gray, Gerardo Dennis and colleagues, with an educational dasha from [employer]. Review of Systems Const Denies body aches, Denies chills, Denies fever(s), Reports headache(s) and Denies poor appetite Eyes Reports no additional complaints ENT Denies dizziness and Reports headache(s) Card Denies chest pain, Denies lightheadedness and Denies dyspnea Resp Reports cough and Denies dyspnea GI Denies abdominal pain Reports no additional complaints Musc Reports no additional complaints and Denies abnormal gait Skin/Breast Reports system reviewed and no additional complaints, except as documented Neuro Denies abnormal gait, Denies dizziness and Reports headache(s) Psych Reports no additional complaints Physical exam (Primary Care) Vital Signs: Last Vital Signs Pulse 58 03/16/24 08:37 BP 108/82 03/16/24 08:37 Pulse Ox 97 03/16/24 08:37 Oxygen Delivery Method Room Air 03/16/24 08:37 BMI result Body Mass Index 26.0 Tobacco/Smoking Status: Tobacco use Status Tobacco use date assessed 12/10/23 03/16/24 08:39 Patient Tobacco Use Status Never used Tobacco 03/16/24 08:39 e-Cigarette/Vaping Use Never Used 03/16/24 08:39 Thrive Assessment: Date of Thrive Assessment Date Thrive assessed 12/10/23 03/16/24 08:39 Const General: cooperative, healthy appearing, comfortable and no acute distress Orientation/consciousness: patient oriented x3 HENMT Head: Yes normocephalic Ears: hearing grossly normal bilaterally General nose exam: Normal external nose present Eyes General: appearance normal, both eyes and all related structures Conjunctivae: conjunctivae normal Neck Neck: Yes full ROM and Yes no lymphadenopathy Resp Effort & Inspection: normal respiratory effort Auscultation: clear to auscultation bilaterally, no crackles, no rales, no rhonchi and no wheezes Cardio Rate: regular rate Rhythm: regular rhythm Skin General skin exam: no rashes or lesions noted Neuro General: patient oriented x3 Gait exam (Neuro): Normal gait present Extrem General: Yes normal to inspection, Yes full ROM and No edema Psych Affect: normal affect Attitude: cooperative Insight: Good insight present (Psych) Judgement: Good judgement present (Psych) Assessment and Plan Assessment & Plan (1) COVID-19: Code(s): U07.1 - COVID-19 Plan: Advised patient that we typically do not retest for COVID and that as long as she is symptom free for 2 days she can return to work. Patient is still requesting a COVID test. Did inform patient that it is possible she could still test positive even if she no longer has symptoms. Ordered for the COVID-19 test and we will follow up after results. Continue to use Tylenol for the headache and benzonatate for the cough. Plan This note was constructed using voice recognition software. While every effort has been made to ensure accuracy and greenhouse grower, still areas may have been included sometimes these areas may affect the content or meeting of the given symptoms. Total time spent caring for the patient today was 20 minutes. This includes time spent before the visit reviewing the chart, time spent during the visit, and time spent after the visit and documentation. Orders: Orders COVID-19 ID NOW ([place]) Today U07.1 - COVID-19 Coding Level of Care Code Est Pt Level 3 (98575) Diagnoses COVID-19 U07.1
== END 2024-03-16 09:18 | disposition home or self-care (01) ==
PROVIDERS: PCP Internal Medicine
DX: U07.1 COVID-19 (principal)
CPT/HCPCS: 99213

== ENCOUNTER 2024-03-16 09:12 | Outpatient (REF) | payer OTHER, SELFPAY ==
[2024-03-16 09:51] LABS: COVID-19 Test Negative (Negative); IDNOW Serial# 152EDE1D
== END 2024-03-16 09:13 | disposition home or self-care (01) ==
LOC: HO.LAB 09:12
PROVIDERS: PCP Internal Medicine
DX: U07.1 COVID-19 (principal)
CPT/HCPCS: 87635

== ENCOUNTER 2024-05-06 11:47 | Outpatient (AMB) | payer OTHER, SELFPAY ==
[2024-05-06 11:48] VITALS: BP 142/78; PULSE 88; TEMP 36.8; O2SAT 97; BMI 25.8
--- NOTE | 2024-05-06 11:48 | MHC.OFFWIV ---
Intake Vital Signs 05/06/24 11:48 Height 5 ft 2 in Weight 141 lb 4 oz BMI 25.8 BP 142/78 H Blood Pressure Location Lt brachial Position Sitting Pulse 88 Pulse Source Pulse Oximeter Temp 98.3 F Temp Source Oral Pulse Oximetry (%) 97 Oxygen Delivery Method Room Air Intake Visit Reasons: EP Leg and back pain, lump under LT foot/toe pain Patient Tobacco Use Status: Never used Tobacco Allergies lactose [LACTOSE] Allergy (Severe, Verified 05/06/24 11:49) DIARRHEA aspirin [Aspirin] Allergy (Unknown, Verified 05/06/24 11:49) UPSET STOMACH cheese Allergy (Unknown, Uncoded 03/16/24 08:38) Diarrhea milk Allergy (Unknown, Uncoded 03/16/24 08:38) Diarrhea Do you need a note to return to daycare/school/sports/work: No HPI EP Leg and back pain, lump under LT foot/toe pain HPI Details This note is constructed using voice recognition software. While every effort has been made to ensure accuracy, telecom sales consultant errors may have been included. The patient is a 58 year old female who presents to the clinic today with right leg and bilateral lumbar pain. She also reports that she has pain to the bottom of her left foot which she describes as a lump. She denies any specific injury now or in the past. She denies numbness and tingling in the extremities, or any difficulty walking though she does report that sometimes it is a little bit painful when she walks she tried Tylenol 500 mg to help the pain, which it did help resolve the pain, however she has run out of Tylenol and requests a prescription sent. She reports that she typically walks around at home fair foot. [facility] Medical History Vertigo Sinus headache Anxiety Depression GERD (gastroesophageal reflux disease) Surgical History Hx of colonoscopy Family History Mother Diabetes mellitus Father No problems noted. Social History Housing: Apartment Alcohol intake: current Alcohol intake frequency: holidays/special occasions only Alcohol type: beer Patient Tobacco Use Status: Never used Tobacco e-Cigarette/Vaping Use: Never Used Second Hand Smoke Exposure: No service: No Current occupational status: employed Current occupational exposures/hazards: No Cognitive needs: No Hearing needs: No Vision needs: No Review of Systems Const All systems reviewed & are unremarkable except as noted in HPI and below Physical Exam Vital Signs: Last Vital Signs Temp 98.3 F 05/06/24 11:48 Pulse 88 05/06/24 11:48 BP 142/78 H 05/06/24 11:48 Pulse Ox 97 05/06/24 11:48 Oxygen Delivery Method Room Air 05/06/24 11:48 BMI result Body Mass Index 25.8 Const General: cooperative, healthy appearing, comfortable, no acute distress and alert Orientation/consciousness: patient oriented x3 Limitations: no limitations Resp Effort & Inspection: normal respiratory effort and able to speak in complete sentences General: Yes no CVA tenderness Back/Spine/Pelvis Other: Full range of motion of spine including lateral rotation, as well as flexion, negative SLR, negative well SLR. Bilateral lumbar tenderness, without increased muscle bulging or palpable spasm. Back: no CVA tenderness Skin Other: Small Callus present to left plantar foot beneath the 1st metatarsal, at site the patient reports complaint General skin exam: no rashes or lesions noted, elasticity normal and turgor normal Neuro General: patient oriented x3 Extrem General: Yes normal to inspection, Yes full ROM, Yes capillary refill normal and Yes normal exam except as noted Psych Appearance: grossly normal Mental Status: mental status grossly normal Speech and movement: Normal speech and movement present Affect: normal affect Assessment & Plan Assessment & Plan (1) Low back pain: Code(s): M54.50 - Low back pain, unspecified Qualifiers: Chronicity: acute Back pain laterality: bilateral Sciatica presence: without sciatica Qualified Code(s): M54.50 - Low back pain, unspecified Plan: Patient has low back appears to be muscular in nature. Discussed possible treatment plan including muscle relaxer, however she has declined at this time. We refilled her Tylenol as requested. Advised trial of heat versus ice, and follow up as needed with worsening or failure to resolve. Plan See above for full details and plan. Advised moisturizer to foot to help with callus, and consideration of [id number] callus softening application. Leg pain may be related to walking barefooted in the home, advised appropriate footwear for overall health. Given the lack of injury or coordinating physical examination we elected to defer imaging at this time. Advised patient to follow up however symptoms do not improve. Medications: Refilled acetaminophen (Tylenol Extra Strength) 500 mg PO Q6H PRN 30 tabs 0RF fever or pain Coding Level of Care Code Est Pt Level 3 (51121) Diagnoses Acute bilateral low back pain without sciatica M54.50 Chronicity: acute Back pain laterality: bilateral Sciatica presence: without sciatica
== END 2024-05-06 12:18 | disposition home or self-care (01) ==
PROVIDERS: PCP Internal Medicine; Visit Provider Registered Nurse
DX: M54.50 Low back pain, unspecified (principal)

== ENCOUNTER → 2024-05-06 11:47 | Outpatient (BNVA) | payer OTHER, SELFPAY | PROVIDERS: PCP Internal Medicine; Visit Provider Registered Nurse | DX: M54.50 Low back pain, unspecified (principal) | CPT/HCPCS: 99212 ==

== ENCOUNTER 2024-05-14 12:24 | Emergency (ER) | payer OTHER, SELFPAY ==
--- NOTE | ~2024-05-14 | US_ITS ---
EXAMINATION: US TRIPLEX LOWER EXTREMITY, RIGHT CLINICAL INFORMATION: Right lower extremity pain and swelling COMPARISON: None available. TECHNIQUE: Color-flow triplex imaging with spectral analysis and compression Doppler were performed on the right lower extremity. FINDINGS: Respiratory variation, normal compression and augmented flow are noted throughout the right lower extremity. The visualized common femoral vein, superficial femoral vein, profunda femoral vein, popliteal vein and midcalf peroneal and posterior tibial venous segments show no evidence of deep venous thrombosis. There is no Pimentel's cyst. US/US venous duplex LE RT IMPRESSION: No evidence of deep venous thrombosis involving the right lower extremity. Electronically signed by: Vin Bailey MD 05/14/2024 02:50 PM EDT
[2024-05-14 12:27] VITALS: BP 128/76; PULSE 80; O2SAT 97
[2024-05-14 12:30] VITALS: BP 138/65; PULSE 69; RESP 16; TEMP 36.9; O2SAT 96; BMI 25.6
--- NOTE | 2024-05-14 12:55 | ED.BACK ---
HPI - Back Pain/Injury General Chief Complaint: Back Pain/Injury Stated Complaint: RT LEG AND LOWER BACK PAIN PER EMS Time Seen by Provider: 05/14/24 12:41 Source: patient, EMS, RN notes reviewed and old records reviewed Mode of arrival: EMS History of Present Illness ED Provider: Cindy Cameron PA-C HPI Narrative: 58-year-old female with a past medical history of vertigo, anxiety, depression, GERD, presenting to the ED via EMS complaining of right-sided low back pain radiating down RLE x2 weeks with associated RLE swelling. Denies known injury/trauma or fall, history of clots, numbness, tingling, weakness, incontinence/retention, fever, hematuria/dysuria. Has been taking Tylenol without improvement. Does endorse travel to [place] in January Related Data Previous Rx's ?Medication ?Instructions ?Recorded lorazepam 0.5 mg tablet 0.5 mg PO BEDTIME PRN anxiety 30 06/10/22 days #30 tabs insulin syringe-needle U-100 1 mL #1 ea 08/02/22 31 gauge x 5/16 ([facility] Syringes) ropinirole 0.5 mg tablet 0.5 mg PO BEDTIME 90 days #90 tabs 11/25/22 cyanocobalamin (vitamin B-12) 1,000 mcg IM Q4W 30 days #1 mL 03/05/23 1,000 mcg/mL injection solution blood pressure test kit-medium #1 ea 12/10/23 sertraline 25 mg tablet 25 mg PO DAILY 30 days #30 tabs 01/22/24 cholecalciferol (vitamin D3) 50 50 mcg PO DAILY 90 days #90 caps 02/02/24 mcg (2,000 unit) capsule omeprazole 20 mg capsule,delayed 20 mg PO DAILY 90 days #90 caps 02/02/24 release cetirizine 10 mg capsule (Zyrtec) 10 mg PO DAILY PRN allergy 02/21/24 symptoms #30 caps cetirizine 10 mg tablet (All Day 10 mg PO DAILY PRN allergy 04/08/24 Allergy (cetirizine)) symptoms 90 days #90 tabs hydrochlorothiazide 25 mg tablet 25 mg PO DAILY Dizziness 90 days 04/08/24 #90 tabs acetaminophen 500 mg tablet 500 mg PO Q6H PRN fever or pain 05/06/24 (Tylenol Extra Strength) #30 tabs dicyclomine 20 mg tablet 20 mg PO BID abd cramps #14 tabs 05/10/24 docusate sodium 100 mg capsule 100 mg PO BID PRN Constipation 90 05/10/24 (Colace) days #180 caps acetaminophen 500 mg tablet 500 mg PO Q6H PRN fever or pain 05/14/24 (Tylenol Extra Strength) #14 tabs cyclobenzaprine 5 mg tablet 5 mg PO Q8H PRN pain (scale score 05/14/24 7-10) 5 days #14 tabs lidocaine 5 % topical patch 1 patch topical DAILY PRN pain #30 05/14/24 (Lidoderm) ea Allergies Allergy/AdvReac Type Severity Reaction Status Date / Time lactose [LACTOSE] Allergy Severe DIARRHEA Verified 05/14/24 12:31 aspirin [Aspirin] Allergy Unknown UPSET Verified 05/14/24 12:31 STOMACH cheese Allergy Unknown Diarrhea Uncoded 03/16/24 08:38 milk Allergy Unknown Diarrhea Uncoded 03/16/24 08:38 Review of Systems Review of Systems: Yes all other systems are reviewed and are negative Constitutional: Constitutional: Reports as per HPI Neurologic: Denies Sensory deficit (Neuro) [facility] Past Medical History Attestation statement: The following information was validated with the patient. Source: old records reviewed Medical History Vertigo Sinus headache Anxiety Depression GERD (gastroesophageal reflux disease) Surgical History Hx of colonoscopy Family History Family History Mother Diabetes mellitus Father No problems noted. Social History Social History Housing: Apartment Alcohol intake: current Alcohol intake frequency: holidays/special occasions only Alcohol type: beer Patient Tobacco Use Status: Never used Tobacco Smoked in Last 30 Days: No e-Cigarette/Vaping Use: Never Used Second Hand Smoke Exposure: No Use of substances other than those prescribed or required for medical reasons: No Advance Directives: No Advance Directives Information Provided: Yes service: No Current occupational status: employed Current occupational exposures/hazards: No Cognitive needs: No Hearing needs: No Vision needs: No Physical Exam Vital Signs: Vital Signs: Last Vital Signs Temp 98.2 F 05/14/24 15:42 Pulse 60 05/14/24 15:42 Resp 15 05/14/24 15:42 BP 138/76 05/14/24 15:42 Pulse Ox 98 05/14/24 15:42 O2 Del Method Room Air 05/14/24 15:42 BMI result Body Mass Index 25.6 Const: General: cooperative, healthy appearing and no acute distress Orientation/consciousness: patient oriented x3 Limitations: no limitations HEENT: Head: Yes normal to inspection and Yes atraumatic Ears: hearing grossly normal bilaterally General nose exam: Normal external nose present Face and sinus: Yes normal facial exam Eyes: General: appearance normal, both eyes and all related structures EOM: EOMs intact bilaterally Neck: Neck: Yes normal visual inspection and Yes no meningeal signs Resp: Effort & Inspection: normal respiratory effort and no respiratory distress Cardio: Rate: regular rate GI: Inspection: Yes normal to inspection : General: Yes no CVA tenderness Back/Spine/Pelvis: Other: No midline cervical/thoracic/lumbar spinous tenderness/step-off or deformity. No rash/erythema or ecchymosis. Back pain not reproducible Back: no CVA tenderness Skin: Rashes: no rashes Wounds: no wounds Neuro: Other: Strength intact throughout. No saddle anesthesia. Sensation intact to light touch. Neurovascular intact distally General: patient oriented x3, gait normal, tone normal, moves all extremities, no meningeal signs and no focal motor deficits Cranial nerves: Yes CN's II-XII intact bilaterally Gait exam (Neuro): Normal gait present Motor exam (neuro): 5/5 motor strength present throughout Sensory Exam: No Sensory deficit (Neuro) Extrem: Other: Negative Homans. General: Yes normal to inspection and Yes no pedal edema Course Course Course Narrative: -1510--UA negative US venous duplex LE RT IMPRESSION: No evidence of deep venous thrombosis involving the right lower extremity. Results discussed with patient including worrisome signs and symptoms and strict return precautions, and when to return to the emergency department. They verbalized understanding and feel safe for discharge at this time. Medications Administered Discontinued Medications Generic Name Dose Route Start Last Admin Trade Name Freq PRN Reason Stop Dose Admin Cyclobenzaprine HCl 10 mg 05/14/24 12:51 05/14/24 13:28 Cyclobenzaprine Hcl 10 Mg Tablet PO 05/14/24 12:52 10 mg ONCE ONE Administration Ketorolac Tromethamine 30 mg 05/14/24 12:51 05/14/24 13:29 Ketorolac Tromethamine 30 Mg/Ml Vial IM 05/14/24 12:52 30 mg ONCE ONE Administration Medical Decision Making Medical Decision Making MDM Narrative: 58-year-old female with a past medical history of vertigo, anxiety, depression, GERD, presenting to the ED via EMS complaining of right-sided low back pain radiating down RLE x2 weeks with associated RLE swelling. On exam vital signs stable, NAD, nontoxic appearing, no midline spinous tenderness or red flag symptoms, no appreciable RLE swelling or pitting edema. No calf tenderness. Concern for sciatica vs herniated disc vs radiculopathy vs DVT. Low suspicion for compartment syndrome, no evidence of cellulitis, unlikely cauda equina/cord compression or epidural abscess Plan: UA, ultrasound, pain control Please refer to course for remaining clinical decision making, interpretation of labs/imaging results, and discussions with consultants and/or family members. Differential Diagnosis Differential Diagnoses: The differential diagnosis associated with the presentation includes As above Admission/Observation Consideration of admission/observation: Escalation of care including admission/observation considered Lab Data [facility] Lab Attestation statement: I reviewed the patient's lab results. Labs: Lab Results 05/14/24 Range/Units 13:29 Urine Color Yellow Urine Appearance Clear Urine pH 6.0 (5.0-9.0) Ur Specific [place] 1.025 (1.005-1.025) Urine Protein Negative (Neg-Trace) mg/dL Urine Glucose (UA) Negative (Negative) mg/dL Urine Ketones Negative (Negative) mg/dL Urine Blood Negative (Negative) Urine Nitrite Negative (Negative) Ur Leukocyte Esterase Negative (Negative) Independent Interpretation I performed an independent interpretation of an: Ultrasound Radiology Impression Discussion of test interpretation with radiology: I have reviewed the radiologist's reading. External Record Review External record reviewed: Inpatient record, Office record, Outpatient record, Prior outpatient labs, Prior outpatient radiology, Primary care record and Outside ED record Tests considered The following testing was considered but not selected: As above Prescription Management I considered prescription management with: Pain Medication Discharge Plan Discharge Clinical Impression: Lumbar radiculopathy Patient Disposition: Home, Self-Care Instructions: Lumbar Radiculopathy (ED) Additional Instructions: Your ultrasound is negative for blood clot Your urine is unremarkable Your pain is likely musculoskeletal Flexeril is a muscle relaxer, take at night as it makes you drowsy, do not drive, drink alcohol, or operate machinery while taking it Lidoderm patches are numbing patches, apply to painful area In addition take Tylenol at home If symptoms persist or worsen, pain becomes unbearable, you developed urinary retention or incontinence, or weakness return to the ED Prescriptions: New acetaminophen [Tylenol Extra Strength] 500 mg tablet 500 mg PO Q6H PRN (Reason: fever or pain) Qty: 14 0RF lidocaine [Lidoderm] 5 % adhesive patch,medicated 1 patch topical DAILY MDD remove after 12 hours PRN (Reason: pain) Qty: 30 0RF Rx Instructions: leave on most painful area for up to 12 hrs cyclobenzaprine 5 mg tablet 5 mg PO Q8H PRN (Reason: pain (scale score 7-10)) 5 Days Qty: 14 0RF No Action lorazepam 0.5 mg tablet 0.5 mg PO BEDTIME PRN (Reason: anxiety) 30 Days Qty: 30 0RF (DME) insulin syringe-needle U-100 [[facility] Syringes] 1 mL 31 gauge x 5/16 syringe See Rx Instructions .Route Qty: 1 6RF Rx Instructions: Use 1 needle once a month ropinirole 0.5 mg tablet 0.5 mg PO BEDTIME 90 Days Qty: 90 1RF Rx Instructions: administer 1-3 hours before bedtime cyanocobalamin (vitamin B-12) 1,000 mcg/mL solution 1,000 mcg IM Q4W 30 Days Qty: 1 1RF sertraline 25 mg tablet 25 mg PO DAILY 30 Days Qty: 30 1RF cholecalciferol (vitamin D3) 50 mcg (2,000 unit) capsule 50 mcg PO DAILY 90 Days Qty: 90 1RF omeprazole 20 mg capsule,delayed release(DR/EC) 20 mg PO DAILY 90 Days Qty: 90 1RF Zyrtec 10 mg capsule 10 mg PO DAILY PRN (Reason: allergy symptoms) Qty: 30 1RF hydrochlorothiazide 25 mg tablet 25 mg PO DAILY 90 Days Qty: 90 1RF cetirizine [All Day Allergy (cetirizine)] 10 mg tablet 10 mg PO DAILY PRN (Reason: allergy symptoms) 90 Days Qty: 90 1RF docusate sodium [Colace] 100 mg capsule 100 mg PO BID PRN (Reason: Constipation) 90 Days Qty: 180 1RF dicyclomine 20 mg tablet 20 mg PO BID Qty: 14 0RF (DME) blood pressure test kit-medium Kit See Rx Instructions .Route Qty: 1 0RF Rx Instructions: As directed acetaminophen [Tylenol Extra Strength] 500 mg tablet 500 mg PO Q6H PRN (Reason: fever or pain) Qty: 30 0RF Referrals: Alecia Godfrey MD [Primary Care Provider] - 1 week Interventions: ED Discharge Assessment Last Done: 05/14/24 15:42 Discharge Date/Time: 05/14/24 15:42 Print Language: Peruvian
[2024-05-14] MEDS: Cyclobenzaprine HCl 10 MG TABLET PO (13:28)
[2024-05-14] MEDS: Ketorolac Tromethamine 30 MG/ML VIAL IM (13:29)
[2024-05-14 13:41] LABS: Appearance Urine Clear; Color Urine Yellow; Glucose Urine UA Negative (Negative); Leukocyte Esterase Urine Negative (Negative); Nitrite Urine Negative (Negative); Specific Gravity - Urine 1.025 (1.005-1.025); Urine Blood Negative (Negative); Urine Ketones Negative (Negative); Urine Protein Negative (Neg-Trace)
[2024-05-14 14:37] VITALS: BP 116/70; PULSE 62; RESP 14; TEMP 36.8; O2SAT 99
[2024-05-14 15:35] VITALS: BP 138/76; PULSE 60; RESP 15; TEMP 36.8; O2SAT 98
[2024-05-14 15:42] VITALS: BP 138/76; PULSE 60; RESP 15; TEMP 36.8; O2SAT 98
== END 2024-05-14 15:42 | disposition home or self-care (01) ==
PROVIDERS: Physician Assistant; Emergency Provider Internal Medicine; PCP Internal Medicine
DX: M54.16 Radiculopathy, lumbar region (principal); M79.661 Pain in right lower leg; M79.89 Other specified soft tissue disorders; M54.50 Low back pain, unspecified; K21.9 Gastro-esophageal reflux disease without esophagitis
CPT/HCPCS: 81003; 93971; 96372; 99284; J1885

== ENCOUNTER 2024-05-17 09:25 | Outpatient (AMB) | payer OTHER, SELFPAY ==
--- NOTE | 2024-05-17 09:52 | MHC.PC.OV ---
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 Accompanied by: Self / Same As Patient Allergies lactose [LACTOSE] Allergy (Severe, Verified 05/17/24 10:08) DIARRHEA aspirin [Aspirin] Allergy (Unknown, Verified 05/17/24 10:08) UPSET STOMACH cheese Allergy (Unknown, Uncoded 05/17/24 10:08) Diarrhea milk Allergy (Unknown, Uncoded 05/17/24 10:08) Diarrhea Medication List - Last Reconciled 05/17/24 by Alecia Jack MD acetaminophen (Tylenol Extra Strength) 500 mg PO Q6H PRN acetaminophen (Tylenol Extra Strength) 500 mg PO Q6H PRN blood pressure test kit-medium As directed cetirizine (Zyrtec) 10 mg PO DAILY PRN cetirizine (All Day Allergy (cetirizine)) 10 mg PO DAILY PRN 90 days cholecalciferol (vitamin D3) 50 mcg PO DAILY 90 days cyanocobalamin (vitamin B-12) 1,000 mcg IM Q4W 30 days cyclobenzaprine 5 mg PO Q8H PRN 5 days dicyclomine 20 mg PO BID docusate sodium (Colace) 100 mg PO BID PRN 90 days hydrochlorothiazide 25 mg PO DAILY 90 days insulin syringe-needle U-100 ([facility] Syringes) Use 1 needle once a month lidocaine 5% (Lidoderm) 1 patch topical DAILY PRN MDD remove after 12 hours lorazepam 0.5 mg PO BEDTIME PRN 30 days omeprazole 20 mg PO DAILY 90 days ropinirole 0.5 mg PO BEDTIME 90 days sertraline 25 mg PO DAILY 30 days Tobacco use date assessed: 12/10/23 Dental Screening Dental Screen Date: 12/10/23 HPI HPI Comments History of Present Illness Details This is a 58-year-old female with moderate major depression, hypertension and chronic constipation that comes today complaining of right knee pain that has been bothering her for the last 2 weeks. No previous trauma. Went to ER and had ultrasound duplex to rule out DVT. Depression stable with sertraline. Blood pressure well controlled with hydrochlorothiazide. Constipation controlled with docusate as needed. X-ray ordered for the knee. COUNTS INCLUDE 234 BEDS AT THE [facility] Medical History (Updated 05/17/24 @ 11:35 by Alecia Jack MD) Vertigo Sinus headache Anxiety Depression GERD (gastroesophageal reflux disease) Surgical History Hx of colonoscopy Family History Mother Diabetes mellitus Father No problems noted. Social History Housing: Apartment Alcohol intake: current Alcohol intake frequency: holidays/special occasions only Alcohol type: beer Patient Tobacco Use Status: Never used Tobacco e-Cigarette/Vaping Use: Never Used Second Hand Smoke Exposure: No service: No Current occupational status: employed Current occupational exposures/hazards: No Cognitive needs: No Hearing needs: No Vision needs: No Questionnaire Thrive Questionnaire Date Thrive assessed: 12/10/23 MARISA-7 AMB Questionnaire MARISA-7 Date MARISA - 7 assessed: 12/10/23 Source: Developed by Drs. Casey Montoya, Shilpi Gray, Gerardo Dennis and colleagues, with an educational dasha from [employer]. Review of Systems Const All systems reviewed & are unremarkable except as noted in HPI and below Card Denies chest pain at rest, Denies chest pain with activity, Denies edema, Denies irregular heart rhythm, Denies claudication, Denies dyspnea, Denies dyspnea on exertion, Denies orthopnea, Denies paroxysmal nocturnal dyspnea and Denies slow heart rate Resp Denies cough, Denies dyspnea and Denies dyspnea on exertion GI Denies abdominal pain, Denies change in bowel habits, Denies excessive flatus, Denies nausea and Denies vomiting Denies urinary incontinence, Denies urinary hesitancy and Denies urinary urgency Musc Denies abnormal gait, Denies atrophy, Denies deformity and Denies limited range of motion Skin/Breast Denies bleeding lesions, Denies changing lesions and Denies rash Neuro Denies abnormal gait and Denies lack of coordination Physical exam (Primary Care) Vital Signs: Last Vital Signs BP 126/80 05/17/24 09:54 BMI result Body Mass Index 25.6 Tobacco/Smoking Status: Tobacco use Status Tobacco use date assessed 12/10/23 05/17/24 09:53 Patient Tobacco Use Status Never used Tobacco 05/17/24 09:53 e-Cigarette/Vaping Use Never Used 05/17/24 09:53 Thrive Assessment: Date of Thrive Assessment Date Thrive assessed 12/10/23 05/17/24 09:53 Resp Effort & Inspection: normal respiratory effort Auscultation: clear to auscultation bilaterally Cardio Jugular venous distension: no JVD Rate: regular rate Rhythm: regular rhythm Heart sounds: S1 normal heart sound present and S2 normal heart sound present Extrem General: Yes full ROM Office Procedures Flu Questionnaire Does the patient have a severe egg allergy?: No Immunizations Fluarix Triv [id number] (PF) 45 mcg (15 mcg x 3)/0.5 mL IM syringe Performing Provider: Alecia Jack MD [facility] Documented (not given) by: FELIPE Marsh on 05/17/24 09:59 Reason Not Given: Received Previously Coding Level of Care Code Est Pt Level 4 (10169) Complex EM visit Add On G2211 Diagnoses Acute pain of right knee M25.561 Chronicity: acute Essential hypertension I10 Moderate recurrent major depression F33.1 Chronic constipation K59.09 Time Spent (min) 22 Assessment & Plan Assessment & Plan (1) Right knee pain: Code(s): M25.561 - Pain in right knee Category: Medical Qualifiers: Chronicity: acute Qualified Code(s): M25.561 - Pain in right knee Plan: X-ray ordered. (2) Essential hypertension: Code(s): I10 - Essential (primary) hypertension Category: Medical Plan: Continue hydrochlorothiazide. Blood pressure goal is equal or less than 130/80. (3) Moderate recurrent major depression: Code(s): F33.1 - Major depressive disorder, recurrent, moderate Category: Medical Plan: Continue SSRIs. (4) Chronic constipation: Code(s): K59.09 - Other constipation Category: Medical Plan: Continue docusate as needed. Orders: Orders XR knee RT 2V Today M25.561 - Pain in right knee Vitamin D 25-OH Total Today E55.9 - Vitamin D deficiency, unspecified Influenza [id number] Immunization Today Z23 - Encounter for immunization Lipid Panel Today E78.5 - Hyperlipidemia, unspecified Vitamin B12 and Folate Today E53.8 - Deficiency of other specified B group vitamins Comprehensive [place]. Panel Fast Today M25.561 - Pain in right knee Medications: New diphenhydramine-zinc acetate 2-0.1 % (Benadryl Extra Strength) 1 appl topical BID 28.3 grams 0RF 2 weeks Refilled lidocaine 5% (Lidoderm) leave on most painful area for up to 12 hrs 1 patch topical DAILY PRN 30 ea 0RF pain MDD remove after 12 hours
[2024-05-17 09:54] VITALS: BP 126/80; BMI 25.6
== END 2024-05-17 10:15 | disposition home or self-care (01) ==
PROVIDERS: PCP Internal Medicine; Visit Provider Internal Medicine
DX: M25.561 Pain in right knee (principal); I10 Essential (primary) hypertension; F33.1 Major depressive disorder, recurrent, moderate; K59.09 Other constipation; Z23 Encounter for immunization

== ENCOUNTER → 2024-05-17 09:25 | Outpatient (BNVA) | payer OTHER, SELFPAY | PROVIDERS: PCP Internal Medicine; Visit Provider Internal Medicine | DX: M25.561 Pain in right knee (principal); I10 Essential (primary) hypertension; F33.1 Major depressive disorder, recurrent, moderate; K59.09 Other constipation; Z79.899 Other long term (current) drug therapy | CPT/HCPCS: 90471; 99212 ==

== ENCOUNTER 2024-05-18 09:00 | Outpatient (REF) | payer OTHER, SELFPAY ==
--- NOTE | ~2024-05-18 | XR_ITS ---
EXAMINATION: XR KNEE, RIGHT CLINICAL INFORMATION: Knee pain COMPARISON: X-ray 12/11/2023 TECHNIQUE: Two views of the right knee. FINDINGS: Small suprapatellar joint effusion, new from previous. Mild lateral compartment marginal spurring. Joint spaces are relatively maintained. No radiographic evidence of acute fracture. Alignment is anatomic. Superior patellar insertional enthesopathy, stable from previous. XR/XR knee RT 2V IMPRESSION: Small suprapatellar joint effusion, new from previous. No radiographic evidence of acute fracture. Study is assigned for dictation on Jun 09, 2024 Electronically signed by: Saeed England MD 06/09/2024 09:34 AM EST
[2024-05-18 11:05] LABS: Alanine Aminotransferase 19 U/L (0-31); Albumin Level 4.1 g/dL (3.5-5.0); Alkaline Phosphatase 84 U/L (39-117); Anion Gap 13 (12-20); Aspartate Amino Transferase 25 U/L (5-31); Bilirubin Total 0.3 mg/dL (0.0-1.0); Blood Urea Nitrogen 21 mg/dL (9-16); Calcium 9.8 mg/dL (8.4-10.2); Carbon Dioxide 28 mmol/L (22-29); Chloride 106 mmol/L (96-108); Cholesterol 197 mg/dL (<200); Estimated Glomerular Filt Rate > 60; Glucose Fasting 96 mg/dL (60-99); HDL Cholesterol 38 mg/dL (>40); LDL Cholesterol Calculated 106 mg/dL (<100); Potassium 3.7 mmol/L (3.3-5.1); Sodium 143 mmol/L (135-145); Total Protein 8.2 g/dL (6.5-8.0); Triglycerides 266 mg/dL (<150); Vitamin D 25-OH Total 71.2 ng/mL (>30)
[2024-05-18 11:26] LABS: Folate 12.8 ng/mL (> or = 4.0); Vitamin B12 182 pg/mL (200-900)
== END 2024-05-18 09:01 | disposition home or self-care (01) ==
LOC: HO.LAB 09:00
PROVIDERS: PCP Internal Medicine; Visit Provider Internal Medicine
DX: M25.461 Effusion, right knee (principal); E53.8 Deficiency of other specified B group vitamins; E78.5 Hyperlipidemia, unspecified; E55.9 Vitamin D deficiency, unspecified
CPT/HCPCS: 36415; 73560; 80053; 80061; 82306; 82607; 82746

== ENCOUNTER 2024-06-02 09:11 | Emergency (ER) | payer OTHER, SELFPAY ==
--- NOTE | ~2024-06-02 | XR_ITS ---
EXAMINATION: XR KNEE, RIGHT CLINICAL INFORMATION: Right knee pain COMPARISON: Right knee radiograph 05/18/2024 and 12/11/2023 TECHNIQUE: AP, lateral, and both oblique views of the right knee. FINDINGS: There is a small suprapatellar joint effusion, increased from 05/18/2024. No radiographic evidence for fracture. Alignment is anatomic. No significant focal soft tissue swelling. Enthesopathic changes off the superior patella, as before. Mild lateral compartment joint space narrowing and chondrocalcinosis overlying the medial and lateral compartments. XR/XR knee RT 4V IMPRESSION: 1. Small suprapatellar joint effusion, increased from 05/18/2024. 2. No radiographic evidence for fracture. If clinically warranted, consider knee MRI for further assessment. Electronically signed by: Polly Rodriguez DO 06/02/2024 12:15 PM JAHAIRA CHAUDHARI
--- NOTE | ~2024-06-02 | US_ITS ---
EXAMINATION: US TRIPLEX LOWER EXTREMITY, RIGHT CLINICAL INFORMATION: Posterior calf pain. COMPARISON: Ultrasound dated May 14, 2024 TECHNIQUE: Color-flow triplex imaging with spectral analysis and compression Doppler were performed on the right lower extremity. FINDINGS: Respiratory variation, normal compression and augmented flow are noted throughout the right lower extremity. The visualized common femoral vein, superficial femoral vein, profunda femoral vein, popliteal vein and midcalf peroneal and posterior tibial venous segments show no evidence of deep venous thrombosis. There is no Pimentel's cyst. US/US venous duplex LE RT IMPRESSION: No acute deep venous thrombosis involving the right lower extremity. Electronically signed by: Nitesh Perdomo MD 06/02/2024 11:37 AM EST
[2024-06-02 09:17] VITALS: BP 129/84; BP 140/78; PULSE 16; PULSE 72; RESP 16; TEMP 36.6; O2SAT 96; O2SAT 98; BMI 25.6
[2024-06-02 10:02] VITALS: BP 119/75; PULSE 64; RESP 15; TEMP 36.9; O2SAT 96
--- NOTE | 2024-06-02 10:15 | ED_ITS ---
HPI - General Adult General Chief complaint: Extremity Injury, Lower Stated complaint: RT KNEE PAIN X 1.5 MONTHS PER EMS Time Seen by Provider: 06/02/24 09:31 Source: patient Mode of arrival: ambulatory Limitations: no limitations History of Present Illness ED Provider: Aj Francois PA-C HPI narrative: 58 yold female with pmh of HTN, Mary, Depression, CHornic knee pain, B12 defiency, presents to the ED for right knee pain for on month. patient denies any recent trauma, fever, chills, redness, nausea, coldness, hotness, numbness and tingling. Patient also states calf pain. Related Data Previous Rx's ?Medication ?Instructions ?Recorded lorazepam 0.5 mg tablet 0.5 mg PO BEDTIME PRN anxiety 30 06/10/22 days #30 tabs ropinirole 0.5 mg tablet 0.5 mg PO BEDTIME 90 days #90 tabs 11/25/22 blood pressure test kit-medium #1 ea 12/10/23 cetirizine 10 mg capsule (Zyrtec) 10 mg PO DAILY PRN allergy 02/21/24 symptoms #30 caps cetirizine 10 mg tablet (All Day 10 mg PO DAILY PRN allergy 04/08/24 Allergy (cetirizine)) symptoms 90 days #90 tabs hydrochlorothiazide 25 mg tablet 25 mg PO DAILY Dizziness 90 days 04/08/24 #90 tabs acetaminophen 500 mg tablet 500 mg PO Q6H PRN fever or pain 05/06/24 (Tylenol Extra Strength) #30 tabs dicyclomine 20 mg tablet 20 mg PO BID abd cramps #14 tabs 05/10/24 docusate sodium 100 mg capsule 100 mg PO BID PRN Constipation 90 05/10/24 (Colace) days #180 caps acetaminophen 500 mg tablet 500 mg PO Q6H PRN fever or pain 05/14/24 (Tylenol Extra Strength) #14 tabs diphenhydramine-zinc acetate 2 1 appl topical BID 2 weeks #28.3 05/17/24 %-0.1 % topical cream (Benadryl grams Extra Strength) lidocaine 5 % topical patch 1 patch topical DAILY PRN pain #30 05/17/24 (Lidoderm) ea cyanocobalamin (vitamin B-12) 1,000 mcg IM Q4W 30 days #1 mL 05/18/24 1,000 mcg/mL injection solution insulin syringe-needle U-100 1 mL #1 ea 05/18/24 31 gauge x 5/16 (Advocate Syringes) cholecalciferol (vitamin D3) 50 50 mcg PO DAILY 90 days #90 caps 05/22/24 mcg (2,000 unit) capsule omeprazole 20 mg capsule,delayed 20 mg PO DAILY 90 days #90 caps 05/22/24 release sertraline 25 mg tablet 25 mg PO DAILY 30 days #30 tabs 05/23/24 cyclobenzaprine 5 mg tablet 5 mg PO Q8H PRN pain (scale score 05/24/24 7-10) 5 days #14 tabs prednisone 20 mg tablet 40 mg (2 x 20 mg) PO DAILY 5 days 06/02/24 #10 tabs Allergies Allergy/AdvReac Type Severity Reaction Status Date / Time lactose [LACTOSE] Allergy Severe DIARRHEA Verified 06/02/24 09:18 aspirin [Aspirin] Allergy Unknown UPSET Verified 06/02/24 09:18 STOMACH cheese Allergy Unknown Diarrhea Uncoded 05/17/24 10:08 milk Allergy Unknown Diarrhea Uncoded 05/17/24 10:08 Review of Systems 2 Review of Systems: Right knee pain and calf pain Yes all other systems are reviewed and are negative PMFSH Past Medical History Medical History Vertigo Sinus headache Anxiety Depression GERD (gastroesophageal reflux disease) Surgical History Hx of colonoscopy Family History Family History Mother Diabetes mellitus Father No problems noted. Social History Social History Housing: Apartment Alcohol intake: current Alcohol intake frequency: holidays/special occasions only Alcohol type: beer Patient Tobacco Use Status: Never used Tobacco e-Cigarette/Vaping Use: Never Used Second Hand Smoke Exposure: No service: No Current occupational status: employed Current occupational exposures/hazards: No Cognitive needs: No Hearing needs: No Vision needs: No Physical Exam ED Vital Signs: Vital Signs - 24 hr 06/02/24 09:17 06/02/24 10:02 06/02/24 12:36 Temperature 97.9 F 98.4 F 98.0 F Pulse Rate 72 64 60 Respiratory Rate 16 15 16 Blood Pressure 129/84 119/75 125/76 Pulse Oximetry 96 96 99 Oxygen Delivery Method Room Air Room Air Room Air 06/02/24 13:46 Temperature 98.0 F Pulse Rate 66 Respiratory Rate 16 Blood Pressure 121/72 Pulse Oximetry 99 Oxygen Delivery Method Room Air BMI result Body Mass Index 25.6 Const General: cooperative, healthy appearing, comfortable, no acute distress, well developed, alert, awake and Physically active Orientation/consciousness: patient oriented x3 [facility] Head: Yes normal to inspection, Yes No palpable skull fracture present, Yes normocephalic, Yes atraumatic and No abrasion Eyes General: appearance normal, both eyes and all related structures Neck Neck: Yes normal visual inspection, Yes full ROM, Yes no lymphadenopathy, Yes no meningeal signs, Yes trachea midline, Yes supple, No anterior neck swelling and No tender Chest Chest palpation & inspection: normal inspection of the chest and normal palpation of entire chest wall Resp Effort & Inspection: normal respiratory effort and able to speak in complete sentences Auscultation: clear to auscultation bilaterally Cardio Jugular venous distension: no JVD Heart sounds: S1 normal heart sound present and S2 normal heart sound present GI Inspection: Yes normal to inspection Palpation (GI): Soft to palpation, not firm, nontender, no guarding and not rigid General: No CVA tenderness and Yes no CVA tenderness Back/Spine/Pelvis Back: no CVA tenderness, No CVA tenderness and No back tenderness Skin General skin exam: no rashes or lesions noted, elasticity normal and turgor normal Neuro General: patient oriented x3, gait normal, tone normal, moves all extremities, Normal light touch and pain sensation, no meningeal signs, no focal motor deficits, CN's II-XI intact bilaterally and normal sensation to monofilament Extrem General: Yes normal to inspection, Yes full ROM and Yes capillary refill normal Knee images: 2 1. Positive for tenderness on palpation. Negative for erythema, stiffness, ecchymosis, hotness, coldness, crepitus, or deformity. Positive for calf tenderness and posterior neck pain on palpation. Otherwise some extremity normal. motor/neuro/vascular exam intact. 2. Positive for tenderness on palpation. Negative for erythema, stiffness, ecchymosis, hotness, coldness, crepitus, or deformity. Positive for calf tenderness and posterior neck pain on palpation. Otherwise some extremity normal. motor/neuro/vascular exam intact. Psych Appearance: grossly normal, well kempt and not disheveled Medications Administered Discontinued Medications Generic Name Dose Route Start Last Admin Trade Name Samson PRN Reason Stop Dose Admin Acetaminophen 975 mg 06/02/24 12:42 06/02/24 13:01 Acetaminophen 325 Mg Tablet PO 06/02/24 12:43 975 mg ONCE ONE Administration Prednisone 40 mg 06/02/24 12:42 06/02/24 13:02 Prednisone 20 Mg Tablet PO 06/02/24 12:43 40 mg ONCE ONE Administration Medical Decision Making Medical Decision Making MDM Narrative: 58-year-old female with right knee pain mid right calf pain without any trauma. Patient states right knee pain radiating down right leg. Patient states pain on ambulation. Patient denies any chest pain, shortness of breath, pleurisy, recent long travel, recent surgery. Physical exam negative for signs of septic joint. Was sent for x-ray and ultrasound. 1:27pm: Patient's right knee x-ray shows signs of arthritis with small joint effusion. Ultrasound negative blood clot. Not suspecting septic joint, gout, compartment syndrome, cellulitis, necrotizing fasciitis, lymphedema, or arterial occlusion. Patient explained worrisome signs informed to follow up with primary care provider return to the ED immediately. Patient is unable to take NSAIDs due to aspirin allergy which is upset stomach. Patient states she can not take Motrin due to severe GERD. Differential Diagnosis Differential Diagnoses: The differential diagnosis associated with the presentation includes (Arthritis, DVT) Admission/Observation Consideration of admission/observation: Escalation of care including admission/observation considered Independent Interpretation I performed an independent interpretation of an: Plain X-Ray and Ultrasound Radiology Impression Discussion of test interpretation with radiology: I have reviewed the radiologist's reading. Independent Historian Clinical information obtained from an independent historian. History obtained from or confirmed by: Other (Patient) External Record Review External record reviewed: Other (prior visits) Prescription Management I considered prescription management with: Pain Medication Discharge Plan Discharge Clinical Impression: Effusion of right knee, Osteoarthritis Patient Disposition: Home, Self-Care Instructions: Osteoarthritis (ED), Swollen Knee Joint (ED) Additional Instructions: Ultrasound came back negative for blood clot. X-ray shows small joint effusion with signs of arthritis. You will need follow-up with primary care provider and orthopedic surgeon. Return to the ED immediately for worsening knee pain, increased knee swelling, redness, red streaks, hotness, coldness, bluish black discoloration, inability to walk, fever, chills, or any other concerning symptoms. Continue taking Tylenol and you already have at home as needed for pain. FINDINGS: There is a small suprapatellar joint effusion, increased from 05/18/2024. No radiographic evidence for fracture. Alignment is anatomic. No significant focal soft tissue swelling. Enthesopathic changes off the superior patella, as before. Mild lateral compartment joint space narrowing and chondrocalcinosis overlying the medial and lateral compartments. XR/XR knee RT 4V IMPRESSION: 1. Small suprapatellar joint effusion, increased from 05/18/2024. 2. No radiographic evidence for fracture. If clinically warranted, consider knee MRI for further assessment. Electronically signed by: Polly Rodriguez DO 06/02/2024 12:15 PM EST RP US/US venous duplex LE RT IMPRESSION: No acute deep venous thrombosis involving the right lower extremity. Electronically signed by: Nitesh Perdomo MD 06/02/2024 11:37 AM EST RP Prescriptions: New prednisone 20 mg tablet 40 mg PO DAILY 5 Days Qty: 10 0RF No Action lorazepam 0.5 mg tablet 0.5 mg PO BEDTIME PRN (Reason: anxiety) 30 Days Qty: 30 0RF ropinirole 0.5 mg tablet 0.5 mg PO BEDTIME 90 Days Qty: 90 1RF Rx Instructions: administer 1-3 hours before bedtime Zyrtec 10 mg capsule 10 mg PO DAILY PRN (Reason: allergy symptoms) Qty: 30 1RF hydrochlorothiazide 25 mg tablet 25 mg PO DAILY 90 Days Qty: 90 1RF cetirizine [All Day Allergy (cetirizine)] 10 mg tablet 10 mg PO DAILY PRN (Reason: allergy symptoms) 90 Days Qty: 90 1RF docusate sodium [Colace] 100 mg capsule 100 mg PO BID PRN (Reason: Constipation) 90 Days Qty: 180 1RF dicyclomine 20 mg tablet 20 mg PO BID Qty: 14 0RF cyanocobalamin (vitamin B-12) 1,000 mcg/mL solution 1,000 mcg IM Q4W 30 Days Qty: 1 1RF (DME) insulin syringe-needle U-100 [Advocate Syringes] 1 mL 31 gauge x 5/16 syringe See Rx Instructions .Route Qty: 1 6RF Rx Instructions: Use 1 needle once a month cholecalciferol (vitamin D3) 50 mcg (2,000 unit) capsule 50 mcg PO DAILY 90 Days Qty: 90 1RF omeprazole 20 mg capsule,delayed release(DR/EC) 20 mg PO DAILY 90 Days Qty: 90 1RF sertraline 25 mg tablet 25 mg PO DAILY 30 Days Qty: 30 1RF cyclobenzaprine 5 mg tablet 5 mg PO Q8H PRN (Reason: pain (scale score 7-10)) 5 Days Qty: 14 0RF acetaminophen [Tylenol Extra Strength] 500 mg tablet 500 mg PO Q6H PRN (Reason: fever or pain) Qty: 14 0RF (DME) blood pressure test kit-medium Kit See Rx Instructions .Route Qty: 1 0RF Rx Instructions: As directed lidocaine [Lidoderm] 5 % adhesive patch,medicated 1 patch topical DAILY MDD remove after 12 hours PRN (Reason: pain) Qty: 30 0RF Rx Instructions: leave on most painful area for up to 12 hrs Benadryl Extra Strength 2-0.1 % cream 1 appl topical BID 14 Days Qty: 28.3 0RF acetaminophen [Tylenol Extra Strength] 500 mg tablet 500 mg PO Q6H PRN (Reason: fever or pain) Qty: 30 0RF Referrals: [facility] [place] Group] (Knee joint effusion. Arthritic changes) Stand Alone Forms: Work/School Release Interventions: ED Discharge Assessment Last Done: 06/02/24 13:46 Discharge Date/Time: 06/02/24 13:47 Print Language: Romanian
[2024-06-02 12:36] VITALS: BP 125/76; PULSE 60; RESP 16; TEMP 36.7; O2SAT 99
[2024-06-02] MEDS: Acetaminophen 325 MG TABLET 975 MG PO (13:01)
[2024-06-02] MEDS: predniSONE 20 MG TABLET 40 MG PO (13:02)
--- NOTE | 2024-06-02 13:03 | PC.NURSE ---
pt a&ox3, medicated for 7/10 rt knee area pain.
[2024-06-02 13:46] VITALS: BP 121/72; PULSE 66; RESP 16; TEMP 36.7; O2SAT 99
== END 2024-06-02 13:47 | disposition home or self-care (01) ==
PROVIDERS: Emergency Provider Emergency Medicine; PCP Internal Medicine
DX: M25.461 Effusion, right knee (principal); M17.11 Unilateral primary osteoarthritis, right knee; M79.661 Pain in right lower leg
CPT/HCPCS: 73564; 93971; 99283; 99284

== ENCOUNTER → 2024-06-02 10:13 | Outpatient (BNV) | payer OTHER, SELFPAY | PROVIDERS: Emergency Provider Emergency Medicine; PCP Internal Medicine; Visit Provider Radiology Diagnostic Radiology | DX: M79.661 Pain in right lower leg (principal) | CPT/HCPCS: 93971 ==

== ENCOUNTER 2024-06-23 12:28 | Outpatient (AMB) | payer OTHER, SELFPAY ==
--- NOTE | 2024-06-23 12:38 | MHC.OFFVIS ---
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 No hx of injury. Patient reports ongoing pain for 2 months, she had this pain before but it is getting worse. No hx of PT or injections. She mentions that her pain is on the whole knee and moves down to her boss. Pain is worse when going up and down the stairs and laying down. Patient has tried 3 + months of Tylenol for arthritis with mild relief. 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 The patient presented to the ED on 06/02/24 for right knee pain that has been ongoing for a month. She also mentioned experiencing calf pain at that time. X-rays of the right knee were obtained in the ER. She was prescribed prednisone 40 mg PO daily for 5 days and recommended to continue Tylenol as needed for pain. While in the office today, the patient reports experiencing right knee pain ongoing for the past 2 months and has been worsening. She mentions pain throughout her right knee that radiates down to her right boss. She experiences aggravating pain when ambulating up and down the stairs and when she lies down. Denies any history of injury in the right knee. She has tried more than three months of Tylenol for arthritis with mild relief. She has not tried any physical therapy or injection for her right knee pain. 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 [facility] Medical History Vertigo Sinus headache Anxiety Depression GERD (gastroesophageal reflux disease) Surgical History Hx of colonoscopy Family History Mother Diabetes mellitus Father No problems noted. 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 No ecchymosis, erythema or joint effusion. No tenderness to palpation medial or lateral joint lines. Range of motion is zero to 90 degrees. NVI. Office Procedures AMB Joint Injection/Aspiration Joint Injection/Aspiration Primary Site: right knee Prep: site was prepped using aseptic technique, ethochloride spray was applied and injection warnings given Injected: 80 mg of, DepoMedrol, with 8 mL of (2% plain lido ) and in the joint Approach Used: anterolateral Procedure: The patient tolerated the procedure well, but had some pain with the injection and there was some relief with the local anesthesia Coding 51832 - Large joint Procedure code (CPT) selection complete Assessment & Plan Assessment & Plan (1) Osteoarthritis of right knee: Code(s): M17.11 - Unilateral primary osteoarthritis, right knee Category: Medical Plan Mr. Barrientos is a 58-year-old female who presents in the office today, as a new patient, for an evaluation of right knee effusion. The patient presented to the ED on 06/02/24 for right knee pain which has been ongoing for a month. She also mentioned experiencing calf pain at that time. X-rays of the right knee were obtained in the ER. She was prescribed prednisone 40 mg PO daily for 5 days and recommended to continue Tylenol as needed for pain. While in the office today, the patient reports experiencing right knee pain ongoing for the past 2 months and has been worsening. She mentions pain throughout her right knee and radiates down to her right boss. She experiences aggravating pain when ambulating up and down the stairs and when she lies down. Denies any history of injury in the right knee. She has tried more than three months of Tylenol for arthritis with mild relief. She has not tried any physical therapy or injection for her right knee pain. 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 The patient was offered a cortisone injection in the right knee with 80 mg of Depo-Medrol. The patient was explained the risks, benefits, and alternatives to receiving this injection. After receiving consent for the injection, the patient had the procedure done while in the office today. The patient tolerated the procedure well with no complication. Follow-up will be PRN, or sooner if needed. X-rays of the right knee, which were obtained while in the office today and were reviewed by me, Noemy Holloway PA-C, revealed: Osteoarthritis. X-rays of the right knee, obtained on 06/02/24, revealed: 1. Small suprapatellar joint effusion, increased from 05/18/2024. 2. No radiographic evidence for fracture. If clinically warranted, consider knee MRI for further assessment. Ultrasound of the right knee, obtained on 06/02/24, revealed: No acute deep venous thrombosis involving the right lower extremity. Patient Instructions: Scribed by Michelle Zavala biomedical engineering professor, for Noemy Holloway PA-C on 06/23/24 at 1:03 pm EST. Coding Level of Care Code New Pt Level 3 (85410) Diagnoses Osteoarthritis of right knee M17.11 CPT Codes Coding - 81494 Large joint: 12991 - Large joint ([id number])
== END 2024-06-23 13:33 | disposition home or self-care (01) ==
PROVIDERS: PCP Internal Medicine; Visit Provider Physician Assistant
DX: M17.11 Unilateral primary osteoarthritis, right knee (principal)
CPT/HCPCS: 20610; 99203

== ENCOUNTER → 2024-06-23 12:28 | Outpatient (BNVA) | payer OTHER, SELFPAY | PROVIDERS: PCP Internal Medicine; Visit Provider Physician Assistant | DX: M17.11 Unilateral primary osteoarthritis, right knee (principal) | CPT/HCPCS: 20610; 99202; J1010; J2003 ==

== ENCOUNTER 2024-07-07 09:35 | Outpatient (REF) | payer OTHER, SELFPAY | END 2024-07-07 09:36 | disposition home or self-care (01) | LOC: HO.MAMMO 09:35 | PROVIDERS: PCP Internal Medicine; Visit Provider Internal Medicine | DX: Z12.31 Encounter for screening mammogram for malignant neoplasm of breast (principal) | CPT/HCPCS: 77063; 77067 ==

== ENCOUNTER → 2024-07-07 10:00 | Outpatient (BNV) | payer OTHER, SELFPAY | PROVIDERS: PCP Internal Medicine; Visit Provider Internal Medicine | DX: Z12.31 Encounter for screening mammogram for malignant neoplasm of breast (principal) | CPT/HCPCS: 77063; 77067 ==

== ENCOUNTER 2024-10-05 12:46 | Outpatient (AMB) | payer OTHER, SELFPAY ==
--- NOTE | 2024-10-05 12:55 | A.OFFVIS_ITS ---
Vital Signs 10/05/24 12:59 Height 5 ft 2 in Weight 140 lb BMI 25.6 Handedness Right Intake Visit Reasons: OV - right knee OA, last injection 06/23/24 Intake Note: Chloe is a 59 year old female who presents today for a follow up of her right knee OA, last injection 06/23/24. Patient reports her last injection gave her a couple days of relief. She states that her pain has been constant and would like to see if she can get her knee drained today. Allergies lactose [LACTOSE] Allergy (Severe, Verified 10/05/24 12:58) DIARRHEA aspirin [Aspirin] Allergy (Unknown, Verified 10/05/24 12:58) UPSET STOMACH cheese Allergy (Unknown, Uncoded 05/17/24 10:08) Diarrhea milk Allergy (Unknown, Uncoded 05/17/24 10:08) Diarrhea HPI HPI OV - right knee OA, last injection 06/23/24: Details: Ms. Barrientos is a 59-year-old female who presents to the office today for right knee pain and inflammation. She last received a cortisone injection on 06/23/2024 which she reports all I gave her a few days of relief. She is looki ng to get her knee aspirate as she feels her knee is stiff and inhibiting her from performing full range of motion. [facility] Medical History Vertigo Sinus headache Anxiety Depression GERD (gastroesophageal reflux disease) Surgical History Hx of colonoscopy Family History Mother Diabetes mellitus Father No problems noted. Social History (Updated 06/23/24 @ 12:43 by Alirio Mcneal) Housing: Apartment Alcohol intake: current Alcohol intake frequency: holidays/special occasions only Alcohol type: beer Patient Tobacco Use Status: Never used Tobacco e-Cigarette/Vaping Use: Never Used Second Hand Smoke Exposure: No service: No Current occupational status: employed Current occupation: [employer] Current occupational exposures/hazards: No Cognitive needs: No Hearing needs: No Vision needs: No Review of Systems Const All systems reviewed & are unremarkable except as noted in HPI and below Physical Exam Vital Signs: BMI result Body Mass Index 25.6 Const General: cooperative, healthy appearing and no acute distress Resp Effort & Inspection: normal respiratory effort and able to speak in complete sentences Cardio Rate: regular rate Peripheral pulses: Peripheral pulses 2+ throughout Skin Lesions: no lesions Rashes: no rashes Extrem Other: Right knee: Mild effusion. No tenderness to palpation along the medial or lateral joint lines. Full knee extension and flexion. Negative Virginie's. NVI. Office Procedures AMB Joint Injection/Aspiration Joint Injection/Aspiration Primary Site: right knee Prep: site was prepped using aseptic technique, ethochloride spray was applied and injection warnings given Injected: 80 mg of, with 8 mL of (2% plain lido ) and other (10cc of yellow hazy joint fluid was aspirated from the right knee. ) Approach Used: lateral parapatellar Procedure: The patient tolerated the procedure well, but had some pain with the injection and there was some relief with the local anesthesia Coding - Large joint Procedure code (CPT) selection complete Assessment & Plan Assessment & Plan (1) Osteoarthritis of right knee: Code(s): M17.11 - Unilateral primary osteoarthritis, right knee Category: Medical Plan Ms. Barrientos is a 59-year-old female who presents to the office today for right knee pain and inflammation. She last received a cortisone injection on 06/23/2024 which she reports all I gave her a few days of relief. She is looking to get her knee aspirate as she feels her knee is stiff and inhibiting her from performing full range of motion. While the office today, the patient does present with a mild effusion. I did attempt to aspirate the right knee but only obtained about 10 cc of yellow hazy joint fluid aspirate. Additionally the patient was offered a cortisone injection in the right knee during the aspiration with 80 mg of DepoMedrol. The patient was explained the risks, benefits, and alternatives to receiving this injection. After receiving consent for the injection, the patient had the procedure done while in the office today. The patient tolerated the procedure well with no complications. Follow-up will be p.r.n., or sooner if needed Coding Level of Care Code Est Pt Level 3 (01057) Diagnoses Osteoarthritis of right knee M17.11 CPT Codes Coding - Large joint: 47977 - Large joint ([id number])
[2024-10-05 12:59] VITALS: BMI 25.6
--- OUTSIDE RECORDS SUMMARY | 2024-10-05 15:20 | XMS_ITS | Clinical Summary ---
Author Organization [employer] Address [address] [place] [address] [address] [place] [address] Care Team Providers Care Shear Assembler Name Role Phone Unavailable Primary Care Provider Unavailabl e Social History Tobacco Use Types Packs/Day Years Used Date Smoking Tobacco: Never Assessed Comments Unknown Sex and Gender Information Value Date Recorded Sex Assigned at Female 05/27/2022 10:23 AM EDT Legal Sex Female 10:23 AM EDT Gender Identity Female 05/27/2022 10:23 AM EDT Sexual Orientation Straight 05/27/2022 10 :23 AM EDT Plan of Treatment Health Maintenance Due Date Last Done Comments CT Colonography 1965 Colonoscopy 1965 Colorectal Cancer Screening 1965 Depression Screening 1965 FIT DNA/Cologuard 1965 FIT 1965 FOBT 1965 Sigmoidoscopy 1965 Alcohol/Substance Use Screening 1977 Tobacco Screening 1977 DTaP/Tdap/Td Vaccines (1 - Tdap) 1984 Hepatitis B Vaccines (1 of 3 - 19+ 3-dose series) 1984 Pap Smear 1986 Cervical Cancer Screening 1995 HPV/Cotest 1995 Mammogram 2005 Pneumococcal Vaccine: 50+ Years (1 of 1 - PCV) 2015 Zoster Vaccines (1 of 2) 2015 COVID-19 Vaccine ( - season) 2024 06/18/2022, 12/11/2021, 06/06/2021, Additional history exists Influenza Vaccine (#1) 2024 , 04/06/2022, 05/26/2019, Additional history exists RSV Patients and Patients Aged 60 years or older (1 - 1-dose 75+ series) 2040 HIB Vaccines Aged Out No longer eligi ble based on patient's age to complete this topic HPV Vaccines Aged Out No longer eligi ble based on patient's age to complete this topic Hepatitis A Vaccines Aged Out No long er eligible based on patient's age to complete this topic IPV Vaccines Aged Out No longer eligi ble based on patient's age to complete this topic Meningococcal Vaccine Aged Out No ade james eligible based on patient's age to complete this topic Pneumococcal Vaccine: Pediatrics (0 to 5 Years) and At-Risk Patients (6 to 49) Years) Aged Out No longer eligible based on patient's age to complete this topic RSV under 20 months Aged Out No longe r eligible based on patient's age to complete this topic Rotavirus Vaccines Aged Out No longer eligible based on patient's age to complete this topic
--- OUTSIDE RECORDS SUMMARY | 2024-10-05 15:20 | XMS_ITS | Encounter Summary ---
Author Organization [employer] Address [address] [facility] [address] [place] [id number] Care Team Providers Care Quill Picking Machine Operator Name Role Phone Unavailable Primary Care Provider Unavailabl e Encounter Details Date Type Department Care Team (Latest Contact Info) Description 06/14/2019 Abstract C CONVERSIONS Dental, Provider, DDS Social History Tobacco Use Types Packs/Day Years Used Date Smoking Tobacco: Never Assessed Comments Unknown Sex and Gender Information Value Date Recorded Sex Assigned at Female 05/27/2022 10:23 AM EDT Legal Sex Female 10:23 AM EDT Gender Identity Female 05/27/2022 10:23 AM EDT Sexual Orientation Straight 05/27/2022 10 :23 AM EDT documented as of this encounter Plan of Treatment Not on file documented as of this encounter Visit Diagnoses Not on filedocumented in this encounter
== END 2024-10-05 13:29 | disposition home or self-care (01) ==
LOC: HO.HOS 12:47
PROVIDERS: PCP Internal Medicine; Visit Provider Physician Assistant
DX: M17.11 Unilateral primary osteoarthritis, right knee (principal)
CPT/HCPCS: 20610; 99213

== ENCOUNTER → 2024-10-05 12:46 | Outpatient (BNVA) | payer OTHER, SELFPAY | PROVIDERS: PCP Internal Medicine; Visit Provider Physician Assistant | DX: M17.11 Unilateral primary osteoarthritis, right knee (principal) | CPT/HCPCS: 20610; 99212; J1010; J2003 ==

== ENCOUNTER 2024-12-15 09:28 | Outpatient (AMB) | payer OTHER, SELFPAY ==
--- NOTE | 2024-12-15 10:07 | A.OFFPC_ITS ---
Vital Signs 12/15/24 10:12 Height 5 ft 2 in Weight 141 lb BMI 25.8 BP 136/82 Blood Pressure Location Lt brachial Position Sitting Intake Visit Reasons: annual exam Intake Note: Patient here for an annual physical exam Psychometrician Required: No Accompanied by: Self / Same As Patient Allergies lactose [LACTOSE] Allergy (Severe, Verified 12/15/24 10:36) DIARRHEA aspirin [Aspirin] Allergy (Unknown, Verified 12/15/24 10:36) UPSET STOMACH cheese Allergy (Unknown, Uncoded 12/15/24 10:36) Diarrhea milk Allergy (Unknown, Uncoded 12/15/24 10:36) Diarrhea Medication List - Last Reconciled 12/15/24 by Alecia Jack MD acetaminophen (Tylenol Extra Strength) 500 mg PO Q6H PRN blood pressure test kit-medium As directed cetirizine (All Day Allergy (cetirizine)) 10 mg PO DAILY PRN 90 days cholecalciferol (vitamin D3) 50 mcg PO DAILY 90 days cyanocobalamin (vitamin B-12) 1,000 mcg IM Q4W 30 days diphenhydramine-zinc acetate 2-0.1 % (Benadryl Extra Strength) 1 appl topical BID 2 weeks docusate sodium (Colace) 100 mg PO BID PRN 90 days hydrochlorothiazide 25 mg PO DAILY 90 days insulin syringe-needle U-100 (Advocate Syringes) Use 1 needle once a month lidocaine 5% (Lidoderm) 1 patch topical DAILY PRN MDD remove after 12 hours lorazepam 0.5 mg PO BEDTIME PRN 30 days omeprazole 20 mg PO DAILY 90 days ropinirole 0.5 mg PO BEDTIME 90 days sertraline 25 mg PO DAILY 30 days Tobacco use date assessed: 12/15/24 Dental Screening Dental Screen Date: 12/15/24 Did you have a dental visit in the last 12 months?: Yes Did you have a dental problem in the last 6 months where you did not have access to dental care?: No Was dental information given to patient?: Patient has dentist HPI HPI Comments History of Present Illness Details The patient is a 59-year-old female presenting for a physical exam. She has not received a Tdap vaccine in over 10 years, and consent was obtained for administration during this visit. There's an established history of Vitamin B12 deficiency with an ongoing need for Vitamin B12 injections, previously evaluated for pernicious anemia. The patient takes multiple medications for chronic conditions, including hypertension, anxiety, GERD, Restless Leg Syndrome, and depression. She consumes meat but has persistent issues with B12 absorption. Further serologic testing for pernicious anemia was planned. Family history is notable for adoptive parents with diabetes and no known familial colon cancer history, leading to the selection of Cologuard for colorectal cancer screening. Dermatological conditions include onychomycosis and onychogryphosis, with potential podiatry referral and management for a tinea infection on the foot discussed. - Tdap vaccine administration due to lori ng over 10 years since the last dose. - No recent mammogram, next one due in . - Pap smear due, last performed in 2020. - Recommended Vitamin B12 injection due to confirmed pernicious anemia. - Decision to use non-invasive colorecta l screening (Cologuard) instead of colonoscopy. - Vitamin D supplementation adjustment d ue to high levels. [facility] Medical History (Updated 12/15/24 @ 12:51 by Alecia Jack MD) Vertigo Sinus headache Anxiety Depression GERD (gastroesophageal reflux disease) Surgical History (Updated 12/15/24 @ 10:42 by Alecia Jack MD) History of esophagogastroduodenoscopy (EGD) Family History (Updated 12/15/24 @ 10:43 by Alecia Jack MD) Mother No problems noted. Father No problems noted. 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 1. Little interest or pleasure in doing things: not at all 2. Feeling down, depressed, or hopeless: not at all 3. Trouble falling or staying asleep, or sleeping too much: not at all 4. Feeling tired or having little energy: not at all 5. Poor appetite or overeating: not at all 6. Feeling bad about yourself - or that you are a failure or have let yourself or your family down: not at all 7. Trouble concentrating on things, such as reading the newspaper or watching television: not at all 8. Moving or speaking so slowly that other people could have noticed. Or the opposite - being so fidgety or restless that you have been moving around a lot more than usual: not at all 9. Thoughts that you would be better off or of hurting yourself in some way: not at all Total score: 0 Depression Screening Interpretation: Negative Depression Screening Done: Yes 85500 - PHQ-9 Billing: Yes Source: Developed by Drs. Casey Montoya, Shilpi Gray, Gerardo Dennis and colleagues, with an educational dasha from [employer]. Thrive Questionnaire Date Thrive assessed: 12/15/24 I am a: Patient What is your living situation today?: I choose not to answer this question Within the past 12 months, did the food you bought not last and you didn't have the money to get more?: I choose not to answer this question Within the past 12 months, did you worry whether your food would run out before you got money to buy more?: I choose not to answer this question Do you have trouble paying for medicines?: I choose not to answer this question Do you have trouble getting transportation to medical appointments?: I choose not to answer this question Do you have trouble paying your heating and electricity bill?: I choose not to answer this question Do you have trouble taking care of your child, family member or friend?: I choose not to answer this question Do you have trouble with day-to-day activities such as bathing, preparing meals, shopping, managing finances, etc.?: I choose not to answer this question Are you currently unemployed and looking for a job?: I choose not to answer this question Are you interested in more education?: I choose not to answer this question Please select the resources that you would like help with: None Currently or been in a relationship where the following occur: I choose not to answer THRIVE Score: 0 AUDIT C Alcohol Use Questionnaire (AUDIT-C) 1. How often do you have a drink containing alcohol?: Never Total Score: 0 Score Reviewed/Action Taken: No MARISA-7 AMB Questionnaire MARISA-7 Date MARISA - 7 assessed: 12/15/24 Feeling nervous, anxious, or on edge: 0 = Not at all Not being able to stop or control worryin = Not at all Worrying too much about different things: 0 = Not at all Trouble relaxin = Not at all Being so restless that it is hard to sit still: 0 = Not at all Becoming easily annoyed or irritable: 0 = Not at all Feeling afraid as if something awful might happen: 0 = Not at all Total MARISA-7 score (0-4 normal; 5-9 mild; 10-14 moderate; 15-21 severe): 0 Source: Developed by Drs. Casey Montoya, Shilpi Gray, Gerardo Dennis and colleagues, with an educational dasha from [employer]. MARISA-7 Assessment Billing MARISA-7 Assessment Tool: MARISA-7 Assessment 36392 Review of Systems Const All systems reviewed & are unremarkable except as noted in HPI and below Card Denies chest pain at rest, Denies chest pain with activity, Denies edema, Denies irregular heart rhythm, Denies claudication, Denies dyspnea, Denies dyspnea on exertion, Denies orthopnea, Denies paroxysmal nocturnal dyspnea and Denies slow heart rate Resp Denies cough, Denies dyspnea and Denies dyspnea on exertion Denies urinary incontinence, Denies urinary hesitancy and Denies urinary urgency Musc Denies atrophy, Denies deformity, Reports arthralgias and Denies limited range of motion Physical exam (Primary Care) Vital Signs: Last Vital Signs BP 136/82 12/15/24 10:12 BMI result Body Mass Index 25.8 Tobacco/Smoking Status: Tobacco use Status Tobacco use date assessed 12/15/24 12/15/24 10:16 Patient Tobacco Use Status Never used Tobacco 12/15/24 10:16 e-Cigarette/Vaping Use Never Used 12/15/24 10:16 PHQ-9: PHQ-9 Score PHQ-9: Total score 0 12/15/24 10:59 Depression Screening Interpretation: Negative Thrive Assessment: Date of Thrive Assessment Date Thrive assessed 12/15/24 12/15/24 10:16 Currently or been in a relationship where the following occur: I choose not to answer HENMT Head: Yes normal to inspection, Yes normocephalic and Yes atraumatic Ears: external ears normal Eyes General: appearance normal, both eyes and all related structures Eyelids: Yes eyelids normal Conjunctivae: conjunctivae normal Neck Neck: Yes normal visual inspection and Yes supple Resp Effort & Inspection: normal respiratory effort Auscultation: clear to auscultation bilaterally Cardio Jugular venous distension: no JVD Rate: regular rate Rhythm: regular rhythm Heart sounds: S1 normal heart sound present and S2 normal heart sound present GI Inspection: Yes normal to inspection Palpation (GI): Soft to palpation and nontender Auscultation: normal bowel sounds Skin Other: onychomycosis and onychogriposis in first toe bilateral and 5th toe bilatera. Neuro General: no focal motor deficits Extrem General: Yes full ROM Right lower extremity: knee Details: tenderness Psych Appearance: grossly normal Immunizations Boostrix Tdap 2.5 Lf unit-8 mcg-5 Lf/0.5 mL intramuscular syringe Performing Provider: Alecia Jack MD [facility] Administered by: FELIPE Marsh on 12/15/24 10:53 Dose Route Admin Location Dispensed Lot Number Expiration Date ND Barrel And Receiver Aligner 0.5 mL IM Left Deltoid 0.5 mL [id number] 03/23/27 [id number] Zidisha VIS Given Date VIS Provided VIS Publication Date 12/15/24 Single Vaccine 24 Eligibility Eligibility Date Funding Source Not [facility] Eligible 12/15/24 Private Coding Level of Care Code Est Pt Level 3 (34019) Est Pt Prev Care 40-64y(62226) Diagnoses Physical exam Z00.00 Onychogryposis L60.2 Onychomycosis B35.1 Osteoarthritis of right knee M17.11 Additional Codes MARISA-7 Assessment Billing - MARISA-7 Assessment Tool: MARISA-7 Assessment 12323 ([id number]) PHQ-9 - 61083 - PHQ-9 Billing: Yes ([id number]) Time Spent (min) 35 Assessment & Plan Assessment & Plan (1) Physical exam: Code(s): Z00.00 - Encounter for general adult medical examination without abnormal findings Category: Medical (2) Onychogryposis: Code(s): L60.2 - Onychogryphosis Category: Medical (3) Onychomycosis: Code(s): B35.1 - Tinea unguium Category: Medical (4) Osteoarthritis of right knee: Code(s): M17.11 - Unilateral primary osteoarthritis, right knee Category: Medical Plan The health maintenance plan includes Tdap vaccination today, as it has been more than 10 years since her last dose. For pernicious anemia, Vitamin injections a re necessary given the deficiency and poor absorption. Serology will be repeated to verify the current status. We opted for a mail-in colorectal cancer screening test, Cologuard, considering her history and preferences. Vitamin D intake will be decreased due to elevated levels. Chronic conditions, such as hypertension, GERD, anxiety, and depression, will be managed through ongoing medication oversight. A topical treatment was prescribed for dermatological concerns, focusing on addressing her onychomycosis and tinea infection. Podiatry referral was suggested if symptoms persist. Patient was informed and verbally consented to the use of an ambient scribe for clinic note documentation during this visit. I explained the need for the Tdap vaccination, given the elapsed time since the last dose, and the importance of regular Vitamin B12 injections due to pernicious anemia, alongside dietary strategies. The non-invasive colorectal screening using Cologuard was discussed, highlighting the convenience and the ability to perform the test at home. The elevation in Vitamin D levels was addressed with a plan to adjust supplementation. I highlighted that dermatological conditions might benefit from topical treatment and organized a potential podiatry referral if necessary. I confirmed understanding and acceptance of ongoing chronic condition management with current medications, highlighted risk factors, and provided anticipatory guidance. Orders: Orders Lipid Panel Today E78.5 - Hyperlipidemia, unspecified Complete Blood Count Auto Diff Today D64.9 - Anemia, unspecified IRON PROFILE Today D64.9 - Anemia, unspecified Vitamin D 25-OH Total Today E55.9 - Vitamin D deficiency, unspecified Comprehensive [place]. Panel Fast Today I10 - Essential (primary) hypertension TDaP Immunization Today Z23 - Encounter for immunization Vitamin B12 and Folate Today E53.8 - Deficiency of other specified B group vitamins Intrinsic Factor Antibodies Today E53.8 - Deficiency of other specified B group vitamins Parietal Cell Antibody Today E53.8 - Deficiency of other specified B group vitamins Referrals Cologuard Test Z12.11 - Encounter for screening for malignant neoplasm of colon, Z12.12 - Encounter for screening for malignant neoplasm of rectum Podiatry Referral L60.2 - Onychogryphosis Medications: New terbinafine HCl 250 mg PO DAILY 90 days 90 tabs 0RF B35.1 - Tinea unguium cholecalciferol (vitamin D3) 25 mcg PO DAILY 90 days 90 caps 1RF [recliner] As directed 1 ea 0RF M17.11 - Unilateral primary osteoarthritis, right knee Refilled insulin syringe-needle U-100 (Advocate Syringes) Use 1 needle once a month 1 ea 6RF E53.8 - Deficiency of other specified B group vitamins cyanocobalamin (vitamin B-12) 1,000 mcg IM Q4W 30 days 1 mL 1RF E53.8 - Deficiency of other specified B group vitamins Discontinued cholecalciferol (vitamin D3) Discontinued Reason: Patient Completed Course 50 mcg PO DAILY 90 days 90 caps 1RF E55.9 - Vitamin D deficiency, unspecified Patient Instructions: - Get tetanus vaccine today. - Arrange for Vitamin B12 injection to treat deficiency. - Perform Cologuard test as soon as it arrives; return it by mail. - Adjust Vitamin D intake as per instructions for high levels. - Follow medications as instructed for the management of chronic conditions. - Apply prescribed topical treatment for foot conditions. - Attend suggested podiatry follow-up if no symptom improvement within recommended timeframe. - Notify healthcare provider if experiencing new or worsening symptoms.
[2024-12-15 10:12] VITALS: BP 136/82; BMI 25.8
--- OUTSIDE RECORDS SUMMARY | 2024-12-15 10:45 | XMS_ITS | Encounter Summary ---
Author Organization [employer] Address [address] [facility] [address] [place] [id number] Care Team Providers Care Humanities Division Chair Name Role Phone Unavailable Primary Care Provider [...]
--- OUTSIDE RECORDS SUMMARY | 2024-12-15 10:45 | XMS_ITS | Clinical Summary ---
Author Organization [employer] Address [address] [place] [address] [address] [place] [address] Care Team Providers Care Per Diem Physical Therapist Assistant Name Role Phone Unavailable Primary Care Provider [...] patient's age to complete this topic Meningococcal B Vaccine Aged Out No l onger eligible based on patient's age to complete [...]
== END 2024-12-15 10:55 | disposition home or self-care (01) ==
LOC: HO.HMCH 09:29
PROVIDERS: PCP Internal Medicine; Visit Provider Internal Medicine
DX: Z00.00 Encounter for general adult medical examination without abnormal findings (principal); L60.2 Onychogryphosis; B35.1 Tinea unguium; M17.11 Unilateral primary osteoarthritis, right knee; Z23 Encounter for immunization

== ENCOUNTER → 2024-12-15 09:28 | Outpatient (BNVA) | payer OTHER, SELFPAY | PROVIDERS: PCP Internal Medicine; Visit Provider Internal Medicine | DX: Z00.00 Encounter for general adult medical examination without abnormal findings (principal); I10 Essential (primary) hypertension; F41.9 Anxiety disorder, unspecified; K21.9 Gastro-esophageal reflux disease without esophagitis; G25.81 Restless legs syndrome; F32.A Depression, unspecified; L60.2 Onychogryphosis; B35.1 Tinea unguium; M17.11 Unilateral primary osteoarthritis, right knee; E78.5 Hyperlipidemia, unspecified; D64.9 Anemia, unspecified; E55.9 Vitamin D deficiency, unspecified; E53.8 Deficiency of other specified B group vitamins; Z23 Encounter for immunization | CPT/HCPCS: 90471; 90715; 96127; 99212; 99396 ==

== ENCOUNTER 2024-12-30 08:31 | Outpatient (REF) | payer OTHER, SELFPAY ==
[2024-12-30 08:46] LABS: MANUAL DIFF FLAG NO
--- OUTSIDE RECORDS SUMMARY | 2024-12-30 08:52 | XMS_ITS | Clinical Summary ---
Author Organization 175 [facility] Address 175 [place] [address] Phone Care Team Providers Care International Student Counselor Name Role Phone Alecia Jack MD Primary Care Provider [phone] Social History Tobacco Use Types Packs/Day Years Used Date Smoking Tobacco: Never Assessed Comments Unknown Sex and Gender Information Value Date Recorded Sex Assigned at Not on file Legal Sex Female 7:39 AM EDT Gender Identity Not on file Sexual Orientation Not on file Plan of Treatment Upcoming Encounters Date Type Department Care Team ([facility] Contact Info) Description 02/28/2025 10:45 AM EDT Consult Orthopedic Surgery - [place] [address] [phone] René Joyce, DPBrody [address] [address] Health Maintenance Due Date Last Done Comments Breast Cancer Screening 1965 DTaP,Tdap,and Td Vaccines (1 - Tdap) 1984 Hepatitis B Vaccines (1 of 3 - 19+ 3-dose series) 1984 Cervical Cancer Screening: P ap Smear 1986 Pneumococcal Vaccine: 50+ Ye ars (1 of 1 - PCV) 2015 Zoster Vaccines (1 of 2) 2015 COVID-19 Vaccine (2023-2 5 season) 2024 Colorectal Cancer Screening: Colonoscopy 12/16/2024 Depression Screening 12/16/2024 HIV Screening 12/16/2024 Hepatitis C Screening 12/16/2024 Social Influencers of Health Screening 12/16/2024 Influenza Vaccine (Season Ended) 2025 RSV Immunization Adult Patie nts (1 - 1-dose 75+ series) 2040 HIB [...] on patient's age to complete this topic MMR Vaccines Aged Out No longer eligi ble based on patient's age to complete this topic Meningococcal ACWY Vaccine Aged Out N o longer eligible based on patient's age to complete this topic Meningococcal B Vaccine Aged Out No l onger eligible based on patient's age to complete this topic Pneumococcal Vaccine: Pediat rics (0 to 5 Years) and At-Risk Patients (6 to 64 Years) Aged Out No longer eligible b ased on patient's age to complete this topic RSV Immunization Patients Un ray 20 months Aged Out No longer eligible b ased on patient's age to complete this topic Varicella Vaccines Aged Out No longer eligible based on patient's age to complete this topic Insurance [facility] PL[facility] Care Teams International Student Counselor Relationship Specialty Start Date End Date Alecia Jack MD [address] [place] [address] , [address] Physician Associ D/B/A: [facility] [place] PCP - General Internal Medicine 12/16/24
[2024-12-30 09:10] LABS: Basophils Percent Auto 0.2 % (0-2); Eosinophils Absolute Auto 0.1 X10*3/uL (0.0-0.4); Eosinophils Percent Auto 1.7 % (0-4); Hematocrit 37.8 % (37.0-47.0); Hemoglobin 12.1 g/dl (12.0-16.0); Imm Gran Abs Auto 0.01 X10*3/uL (0.00-0.03); Imm Gran Pct Auto 0.2 % (0.0-0.4); Lymphocytes Absolute Auto 1.3 X10*3/uL (1.2-4.9); Lymphocytes Percent Auto 31.1 % (20-40); Mean Corpuscular Hemoglobin 28.7 pg (27.0-33.0); Mean Corpuscular Volume 89.8 fL (80.0-98.0); Monocytes Absolute Auto 0.3 X10*3/uL (0.1-1.2); Monocytes Percent Auto 7.1 % (2-11); Neutrophils Absolute Auto 2.5 x10*3/uL (2.0-8.3); Neutrophils Percent Auto 59.7 % (45-73); Platelet Count 228 X10*3/uL (160-400); Red Blood Count 4.21 X10*6/uL (4.20-5.50); White Blood Count 4.2 X10*3/uL (4.8-10.8)
[2024-12-30 09:58] LABS: Alanine Aminotransferase 15 U/L (0-31); Albumin Level 4.4 g/dL (3.5-5.0); Alkaline Phosphatase 86 U/L (39-117); Anion Gap 12 (12-20); Aspartate Amino Transferase 23 U/L (5-31); Bilirubin Total 0.4 mg/dL (0.0-1.0); Blood Urea Nitrogen 15 mg/dL (9-16); Calcium 9.9 mg/dL (8.4-10.2); Carbon Dioxide 31 mmol/L (22-29); Chloride 104 mmol/L (96-108); Cholesterol 221 mg/dL (<200); Estimated Glomerular Filt Rate > 60; Glucose Fasting 87 mg/dL (60-99); HDL Cholesterol 37 mg/dL (>40); Iron 79 mcg/dL (30-160); LDL Cholesterol Calculated 125 mg/dL (<100); Percent Iron Saturation 25 % (15-50); Potassium 3.9 mmol/L (3.3-5.1); Sodium 143 mmol/L (135-145); Total Iron Binding Capacity 316 mcg/dL (228-428); Total Protein 8.1 g/dL (6.5-8.0); Triglycerides 299 mg/dL (<150); Unsaturated Iron Binding 237 ug/dL
[2024-12-30 10:07] LABS: Vitamin D 25-OH Total 71.7 ng/mL (>30)
[2024-12-30 10:21] LABS: Folate 12.2 ng/mL (> or = 4.0); Vitamin B12 401 pg/mL (200-900)
[2025-01-02 20:48] LABS: Intrinsic Factor Antibodies Positive (Negative)
== END 2024-12-30 08:32 | disposition home or self-care (01) ==
LOC: HO.LAB 08:31
PROVIDERS: PCP Internal Medicine; Visit Provider Internal Medicine
DX: D64.9 Anemia, unspecified (principal); E53.8 Deficiency of other specified B group vitamins; E78.5 Hyperlipidemia, unspecified; E55.9 Vitamin D deficiency, unspecified; I10 Essential (primary) hypertension
CPT/HCPCS: 36415; 80053; 80061; 82306; 82607; 82746; 83516; 83540; 85025; 86340

== ENCOUNTER 2025-01-11 08:26 | Emergency (ER) | payer OTHER, SELFPAY ==
[2025-01-11 08:31] VITALS: BP 149/83; PULSE 69; RESP 16; TEMP 37.3; O2SAT 99; BMI 26.0
--- NOTE | 2025-01-11 08:33 | ED_ITS ---
HPI - Skin/Abscess/Foreign Bdy General Chief complaint: Skin/Abscess/Foreign Body Stated complaint: Nose infection? Time Seen by Provider: 01/11/25 08:37 Source: patient, RN notes reviewed and old records reviewed Mode of arrival: ambulatory Limitations: no limitations History of Present Illness ED Provider: Cheryl HPI narrative: Patient is a 59-year-old female presenting to the ED with complaint of new nose piercing that is stuck due to swelling, area painful. Denies fevers. Denies difficulty breathing. Related Data Previous Rx's ?Medication ?Instructions ?Recorded lorazepam 0.5 mg tablet 0.5 mg PO BEDTIME PRN anxiety 30 06/10/22 days #30 tabs ropinirole 0.5 mg tablet 0.5 mg PO BEDTIME 90 days #90 tabs 11/25/22 blood pressure test kit-medium #1 ea 12/10/23 acetaminophen 500 mg tablet 500 mg PO Q6H PRN fever or pain 05/14/24 (Tylenol Extra Strength) #14 tabs diphenhydramine-zinc acetate 2 1 appl topical BID 2 weeks #28.3 05/17/24 %-0.1 % topical cream (Benadryl grams Extra Strength) cetirizine 10 mg tablet (All Day 10 mg PO DAILY PRN allergy 11/15/24 Allergy (cetirizine)) symptoms 90 days #90 tabs hydrochlorothiazide 25 mg tablet 25 mg PO DAILY Dizziness 90 days 11/15/24 #90 tabs docusate sodium 100 mg capsule 100 mg PO BID PRN Constipation 90 11/26/24 (Colace) days #180 caps omeprazole 20 mg capsule,delayed 20 mg PO DAILY 90 days #90 caps 11/26/24 release cholecalciferol (vitamin D3) 25 25 mcg PO DAILY 90 days #90 caps 12/15/24 mcg (1,000 unit) capsule cyanocobalamin (vitamin B-12) 1,000 mcg IM Q4W 30 days #1 mL 12/15/24 1,000 mcg/mL injection solution insulin syringe-needle U-100 1 mL #1 ea 12/15/24 31 gauge x 5/16 (Advocate Syringes) recliner #1 ea 12/15/24 lidocaine 5 % topical patch 1 patch topical DAILY PRN pain #30 12/31/24 (Lidoderm) ea sertraline 25 mg tablet 25 mg PO DAILY 30 days #30 tabs 12/31/24 terbinafine HCl 250 mg tablet 250 mg PO DAILY 90 days #90 tabs 12/31/24 mupirocin 2 % topical ointment 1 appl topical BID 5 days #15 grams 01/11/25 Allergies Allergy/AdvReac Type Severity Reaction Status Date / Time lactose [LACTOSE] Allergy Severe DIARRHEA Verified 01/11/25 08:33 aspirin [Aspirin] Allergy Unknown UPSET Verified 01/11/25 08:33 STOMACH cheese Allergy Unknown Diarrhea Uncoded 12/15/24 10:36 milk Allergy Unknown Diarrhea Uncoded 12/15/24 10:36 Review of Systems 2 Review of Systems: As per HPI Yes all other systems are reviewed and are negative Constitutional: Constitutional: Reports as per HPI PMFSH Past Medical History Medical History (Updated 01/11/25 @ 10:01 by Jayla Luna NP) Vertigo Sinus headache Anxiety Depression GERD (gastroesophageal reflux disease) Surgical History (Updated 12/15/24 @ 10:42 by Alecia Jack MD) History of esophagogastroduodenoscopy (EGD) Family History Family History (Updated 12/15/24 @ 10:43 by Alecia Jack MD) Mother No problems noted. Father No problems noted. 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 Blood pressure normal. Heart rate normal. Respiratory rate normal. Temperature normal. Oxygen saturation normal. Const: General: cooperative, healthy appearing and no acute distress O rientation/consciousness: oriented to person, oriented to place, oriented to time and patient oriented x3 Limitations: no limitations HEENT: Head: Yes normocephalic and Yes atraumatic Ears: external ears normal General nose exam: Normal external nose present Nose image: 1. erythema, swelling, large scab inside nare around piercing Face and sinus: Yes face symmetric Mouth: oropharynx normal and moist mucous membranes Throat: Yes uvula midline Eyes: Pupils: Equal, round and reactive pupils present Neck: Neck: Yes normal visual inspection and Yes supple Resp: Effort & Inspection: normal respiratory effort and able to speak in complete sentences Auscultation: clear to auscultation bilaterally Cardio: Rate: regular rate Rhythm: regular rhythm Heart sounds: S1 normal heart sound present and S2 normal heart sound present GI: Palpation (GI): Soft to palpation and nontender Auscultation: n ormoactive bowel sounds : General: Yes no CVA tenderness Back/Spine/Pelvis: Back: no CVA tenderness Skin: General skin exam: elasticity normal and turgor normal Neuro: General: oriented to person, oriented to place, oriented to time, patient oriented x3, moves all extremities, no focal motor deficits and CN's II- XI intact bilaterally Cranial nerves: Yes Equal, round and reactive pupils present Cognition (Neuro): normal cognition Extrem: General: Yes full ROM, Yes no pedal edema and Yes no calf tenderness Psych: Mental Status: mental status grossly normal Affect: normal affect Thought process: Normal thought process present Course Course Course Narrative: 59 yo female with PMH of HTN, arthritis, anxiety, GERD, depression, now here with c/o R nasal piercing new as of Mother's day who notes it is more red and painful. No fevers reported she wants it out. I did try to access the inside part of the piercing but it is completely obscured by mucous/dried blood so I cannot tell what kind of end it is. There is mild redness of the nose. Would start on cephalexin and remove ring. this is a RAPID medical screening exam the rest of the history and physical exam is to be done by the main provider. KAHLIL 01/11/25 Medical Decision Making Medical Decision Making [facility] Narrative: Patient is a 59-year-old female presenting to the ED with complaint of new nose piercing that is stuck due to swelling, area painful. On exam patient is awake, A+Ox3, VS WNL, afebrile, normal neurological exam without focal deficits, physical exam findings as above. Given reported symptoms and physical exam findings, initial differential includes but is not limited to foreign body, cellulitis. Piercing removed as per procedure note without difficulty with success. Minimal erythema. Will send prescription for mupirocin. Advised patient to monitor daily and return for signs of worsening infection. Patient verbalized understanding of and agreement with plan. Differential Diagnosis Differential Diagnoses: The differential diagnosis associated with the presentation includes As per [facility] Admission/Observation Consideration of admission/observation: Escalation of care including admission/observation considered Patient would have been admitted to the hospital had their work up had any findings where hospital admission was appropriate and their clinical presentation warranted hospital admission. External Record Review External record reviewed: Inpatient record, Office record and Outpatient record Prescription Management I considered prescription management with: Antibiotic Procedures FB Removal Nose Location: nostril (R) Suspected Foreign Body: other (piercing) Foreign Body Removal Technique: other (tweezers) Patient Tolerated Procedure: well and no complications Discharge Plan Discharge Clinical Impression: Acute foreign body of nose Patient Disposition: Home, Self-Care Additional Instructions: You were evaluated in the emergency department today for nose ring stuck in your nose. The piercing was removed. You are being prescribed an antibiotic ointment to apply to the inside and outside of your nose on the area of the piercing. Assess the area daily for worsening redness, swelling, or thick yellow drainage and follow up with your PCP or return to the emergency department if this occurs. Prescriptions: New mupirocin 2 % ointment 1 appl topical BID 5 Days Qty: 15 0RF No Action lorazepam 0.5 mg tablet 0.5 mg PO BEDTIME PRN (Reason: anxiety) 30 Days Qty: 30 0RF ropinirole 0.5 mg tablet 0.5 mg PO BEDTIME 90 Days Qty: 90 1RF Rx Instructions: administer 1-3 hours before bedtime hydrochlorothiazide 25 mg tablet 25 mg PO DAILY 90 Days Qty: 90 1RF cetirizine [All Day Allergy (cetirizine)] 10 mg tablet 10 mg PO DAILY PRN (Reason: allergy symptoms) 90 Days Qty: 90 1RF omeprazole 20 mg capsule,delayed release(DR/EC) 20 mg PO DAILY 90 Days Qty: 90 1RF docusate sodium [Colace] 100 mg capsule 100 mg PO BID PRN (Reason: Constipation) 90 Days Qty: 180 1RF terbinafine HCl 250 mg tablet 250 mg PO DAILY 90 Days Qty: 90 0RF lidocaine [Lidoderm] 5 % adhesive patch,medicated 1 patch topical DAILY MDD remove after 12 hours PRN (Reason: pain) Qty: 30 0RF Rx Instructions: leave on most painful area for up to 12 hrs sertraline 25 mg tablet 25 mg PO DAILY 30 Days Qty: 30 1RF acetaminophen [Tylenol Extra Strength] 500 mg tablet 500 mg PO Q6H PRN (Reason: fever or pain) Qty: 14 0RF (DME) blood pressure test kit-medium Kit See Rx Instructions .Route Qty: 1 0RF Rx Instructions: As directed (DME) recliner See Rx Instructions .Route .MEDSUPPLY Qty: 1 0RF Rx Instructions: As directed cholecalciferol (vitamin D3) 25 mcg (1,000 unit) capsule 25 mcg PO DAILY 90 Days Qty: 90 1RF cyanocobalamin (vitamin B-12) 1,000 mcg/mL solution 1,000 mcg IM Q4W 30 Days Qty: 1 1RF (DME) insulin syringe-needle U-100 [Advocate Syringes] 1 mL 31 gauge x 5/16 syringe See Rx Instructions .Route Qty: 1 6RF Rx Instructions: Use 1 needle once a month Benadryl Extra Strength 2-0.1 % cream 1 appl topical BID 14 Days Qty: 28.3 0RF Interventions: ED Discharge Assessment Last Done: 01/11/25 10:16 Discharge Date/Time: 01/11/25 10:17 Print Language: Luxembourgish
--- OUTSIDE RECORDS SUMMARY | 2025-01-11 09:23 | XMS_ITS | Clinical Summary ---
Author Organization [employer] Address [address] [place] [address] [address] [place] [address] Care Team Providers Care Mushroom Cultivator Name Role Phone Unavailable Primary Care Provider [...] 1965 FIT 1965 FOBT 1965 Sigmoidoscopy 1965 Disability Screening 1965 Alcohol/Substance Use Screening 1977 Tobacco Screening [...] 12/11/2021, 06/06/2021, Additional history exists Influenza Vaccine (Season Ended) 2025 04/25/2023, 04/06/2022, 05/26/2019, Additional history exists RSV Patients [...]
[2025-01-11 10:15] VITALS: BP 135/89; PULSE 68; RESP 16; TEMP 37.2; O2SAT 98
[2025-01-11 10:16] VITALS: BP 135/89; PULSE 68; RESP 16; TEMP 37.2; O2SAT 98
== END 2025-01-11 10:17 | disposition home or self-care (01) ==
PROVIDERS: Emergency Provider Emergency Medicine; PCP Internal Medicine
DX: M79.5 Residual foreign body in soft tissue (principal)
CPT/HCPCS: 99284

== ENCOUNTER 2025-02-11 09:40 | Outpatient (AMB) | payer OTHER, SELFPAY ==
--- NOTE | 2025-02-11 09:46 | A.OFFVIS_ITS ---
Intake Visit Reasons: inj-right knee OA, last injection 10/05/24 Intake Note: Chloe is a 59 year old female who presents today for a follow up of her right knee OA, last injection 06/23/24. Patient reports her last injection gave her relief and she would like to repeat. Allergies lactose (LACTOSE) Allergy (Severe, Verified 02/11/25 09:52) DIARRHEA aspirin (Aspirin) Allergy (Unknown, Verified 02/11/25 09:52) UPSET STOMACH cheese Allergy (Unknown, Uncoded 12/15/24 10:36) Diarrhea milk Allergy (Unknown, Uncoded 12/15/24 10:36) Diarrhea HPI HPI inj-right knee OA, last injection 10/05/24: Details: Ms. Barrientos is a 59-year-old female who presents to the office today for follow up of chronic right knee pain due to osteoarthritis. Her last cortisone injection was on 10/05/2024 and keep a good relief. She would like to repeat injection while the office today. [facility] Medical History (Updated 01/12/25 @ 00:02 by Bronson Garcia) Vertigo Sinus headache Anxiety Depression GERD (gastroesophageal reflux disease) Surgical History (Updated 12/15/24 @ 10:42 by Alecia Jack MD) History of esophagogastroduodenoscopy (EGD) Family History (Updated 12/15/24 @ 10:43 by Alecia Jack MD) Mother No problems noted. Father No problems noted. 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 No tenderness to palpation along the medial or lateral joint lines. Full knee extension and flexion. Negative Virginie's. NVI. Office Procedures AMB Joint Injection/Aspiration Joint Injection/Aspiration Primary Site: right knee Injected: 80 mg of, DepoMedrol, with 8 mL of (2% plain lidocaine) and in the joint Approach Used: anterolateral Procedure: The patient tolerated the procedure well, but had some pain with the injection and there was some relief with the local anesthesia Coding - Large joint Procedure code (CPT) selection complete Assessment & Plan Assessment & Plan (1) Osteoarthritis of right knee: Code(s): M17.11 - Unilateral primary osteoarthritis, right knee Category: Medical Plan The patient was offered a cortisone injection in the right knee with 80 mg of DepoMedrol. The patient was explained the risks, benefits, and alternatives to receiving this injection. After receiving consent for the injection, the patient had the procedure done while in the office today. The patient tolerated the procedure well with no complications. Follow-up will be PRN, or sooner if needed Coding Level of Care Code Est Pt Level 3 (25942) Diagnoses Osteoarthritis of right knee M17.11 CPT Codes Coding - Large joint: 72966 - Large joint ([id number])
--- OUTSIDE RECORDS SUMMARY | 2025-02-11 09:49 | XMS_ITS | Patient Health Record ---
Author Organization [facility] Address [address] [place] [address] Care Team Providers Care Cotton Header Name Role Phone Alecia Godfrey Primary Care Provider Luis Hernandez Jr Unavailable Allergies Allergen (clinical drug ingredient) Drug/Non Drug Allergy documented on EMR Reaction Allergy Type Onset Date Status aspirin Aspirin Unknown Drug Allergy Active milk,cheese,icecream (uncoded) Unknown Allergy Active Reason For Referral No Information Medications Medication SIG (Take, Route, Frequency, Duration) Notes Start Date End Date Status Omeprazole 20 MG 1 capsule Orally Onc e a day Active Colyte with Flavor Packs 240 GM As directed Orally Over the specified time. for 1 day(s) 10/30/2016 Active Iron Active Meclizine HCl 25 MG 1 tablet as needed Orally prn Active Magnesium Oxide 400 MG 1 tablet as neede d Orally Once a day Active Loperamide HCl 1 MG/7.5ML 15 ml Orally 2 time(s) a day Active Fioricet Active diphenhydrAMINE HCl 25 MG 1 tablet as ne eded Orally every 8 hrs Active oxyBUTYnin Chloride ER 5 MG 1 tablet Ora lly Once a day Active Ondansetron HCl 4 MG 1 tablets Orally TID/PRN Active Naproxen 500 MG 1 tablet as needed Orally every 12 hrs Active Triamcinolone Acetonide 0.1 % 1 application to affected area Externally Twice a day Active Cyanocobalamin 1000 MCG 1 ml Injection weekly Active Vitamin C 500 MG 1 tablet Orally Once a day Active Problems Problem Type SNOMED Code ICD Code Onset Dates Problem Status W/U Status Risk Notes Problem [id number] Colon cancer screening (Z12.11) Active confirmed Problem [id number] [facility] current use of non-steroidal anti-inflammato bijan (NSAID) (Z79.1) Active confirmed Plan Of Treatment Future Test Test Name Order Date COLONOSCOPY 10/30/2016 Insurance Providers Payer Name Payer Address Payer Phone Subscriber Number Group Number Insured Name Patient Relationship to Insured Coverage Start Date Coverage End Date [facility] [address] [place] [address] [id number] RACHEL PALOMARES Self - patient is the insured Medical (General) History Medical History History ICD Code pernicious anemia GERD nausea migraines anemia Surgical History Surgery Date(Month/Year) tubal ligation appendectomy
--- OUTSIDE RECORDS SUMMARY | 2025-02-11 09:49 | XMS_ITS | Clinical Summary ---
Author Organization 175 [facility] Address [address] [place] [address] Phone Care Team Providers Care Industrial Gas Servicer Name Role Phone Alecia Jack MD Primary Care Provider [phone] Social History Tobacco Use Types Packs/Day Years Used Date Smoking Tobacco: Never Assessed Comments Unknown Sex and Gender Information Value Date Recorded Sex Assigned at Not on file Legal Sex Female 7:39 AM EDT Gender Identity Not on file Sexual Orientation Not on file Plan of Treatment Upcoming Encounters Date Type Department Care Team ([facility] Contact Info) Description 02/28/2025 10:45 AM EDT Consult Orthopedic Surgery - [place] [address] [phone] René Joyce, DPBrody [address] [address] Health Maintenance Due Date Last Done Comments [...] Influencers of Health Screening 12/16/2024 Influenza Vaccine (#1) 2025 RSV Immunization Adult Patie nts (1 [...] patient's age to complete this topic Insurance [facility] PLAN Care Teams Industrial Gas Servicer Relationship Specialty Start Date End Date Alecia Jack MD [address] [place] [address] , [address] [facility] D/B/A: [facility] [place], [place] PCP - General Internal Medicine 12/16/24
--- OUTSIDE RECORDS SUMMARY | 2025-02-11 09:49 | XMS_ITS | Clinical Summary ---
Author Organization [employer] Address [address] [place] [address] [address] [place] [address] Care Team Providers Care [place] Actor Name Role Phone Unavailable Primary Care Provider [...] 06/06/2021, Additional history exists Influenza Vaccine (#1) 2025 , 04/06/2022, 05/26/2019, Additional history exists RSV [...]
== END 2025-02-11 10:25 | disposition home or self-care (01) ==
LOC: HO.HOS 09:41
PROVIDERS: PCP Internal Medicine; Visit Provider Physician Assistant
DX: M17.11 Unilateral primary osteoarthritis, right knee (principal)
CPT/HCPCS: 20610

== ENCOUNTER → 2025-02-11 09:40 | Outpatient (BNVA) | payer OTHER, SELFPAY | PROVIDERS: PCP Internal Medicine; Visit Provider Physician Assistant | DX: M17.11 Unilateral primary osteoarthritis, right knee (principal) | CPT/HCPCS: 20610; J1010; J2003 ==

== ENCOUNTER 2025-05-17 08:28 | Outpatient (AMB) | payer OTHER, SELFPAY ==
--- OUTSIDE RECORDS SUMMARY | 2025-05-17 08:44 | XMS_ITS | Clinical Summary ---
Author Organization [employer] Address [address] [place] [address] [address]t [place] [address] Care Team Providers Care Automotive Fleet Supervisor Name Role Phone Unavailable Primary Care Provider [...] Vaccines (1 of 2) 2015 COVID-19 Vaccine (5 - season) 2025 06/18/2022, 12/11/2021, 06/06/2021, Additional history exists Influenza [...]
--- OUTSIDE RECORDS SUMMARY | 2025-05-17 08:44 | XMS_ITS | Encounter Summary ---
Author Organization [employer] Address [address] [facility] [address]t h Floor [place] [id number] Care Team Providers Care Admin Dir Name Role Phone Unavailable Primary Care Provider Unavailabl e Encounter Details Date Type Department Care Team (Latest Contact Info) Description 06/14/[address] [facility] CONVERSIONS Dental, Provider, DDS Social History Tobacco [...]
--- OUTSIDE RECORDS SUMMARY | 2025-05-17 08:45 | XMS_ITS | Patient Health Record ---
Author Organization [facility] Address [address] [place] [address] Care Team Providers Care Pipelines Manager Name Role Phone Alecia Godfrey Primary Care Provider Luis Hernandez Jr Unavailable [phone] Allergies Allergen (clinical drug ingredient) Drug/Non Drug [...] GM As directed Orally Over the specified time.; Duration: 1 day(s) 10/30/2016 Active Iron Active Meclizine [...] Problem Status W/U Status Risk Notes Problem Colon cancer screening (716873891) Colon cancer screening (Z12.11) Active confirmed Problem [facility] current use of non-steroidal anti-inflammat ory drug ([id number] 03) 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 use of non-steroidal anti-inflammat ories (NSAID) (Z79.1) Active confirmed Plan Of Treatment Future Test Test Name Order Date COLONOSCOPY 10/30/2016 Insurance Providers Payer Name Payer Address Payer Phone Subscriber Number Group Number Insured Name Patient Relationship to Insured Coverage Start Date Coverage End Date [facility] [address] [place] [address] [id number] RACHEL PALOMARES Self - patient is the insured Medical (General) History Medical History History ICD Code pernicious anemia GERD nausea migraines anemia Surgical History Surgery Date(Month/Year) tubal ligation appendectomy
--- NOTE | 2025-05-17 08:58 | A.OFFVIS_ITS ---
Intake Visit Reasons: inj-right knee OA, last injection 02/11/25 Intake Note: Chloe is a 59 year old female who presents today for a repeat injection for her right knee, last injection 02/11/25. Patient reports her last injection have her about 2 months and a half of relief. Patient is wondering about a knee brace. Allergies lactose (LACTOSE) Allergy (Severe, Verified 05/17/25 09:37) DIARRHEA aspirin (Aspirin) Allergy (Unknown, Verified 05/17/25 09:37) UPSET STOMACH cheese Allergy (Unknown, Uncoded 12/15/24 10:36) Diarrhea milk Allergy (Unknown, Uncoded 12/15/24 10:36) Diarrhea HPI HPI inj-right knee OA, last injection 02/11/25: Details: Ms. Barrientos is a 59-year-old female who presents to the office today for chronic right knee pain due to osteoarthritis. Last cortisone injection was 02/11/2025 which gave her roughly 2 and half months of relief. She is looking to repeat injection while in the office today. [facility] Medical History (Updated 01/12/25 @ 00:02 by Bronson Garcia) Vertigo Sinus headache Anxiety Depression GERD (gastroesophageal reflux disease) Surgical History (Updated 12/15/24 @ 10:42 by Alecia Jack MD) History of esophagogastroduodenoscopy (EGD) Family History (Updated 12/15/24 @ 10:43 by Alecia Jack MD) Mother No problems noted. Father No problems noted. Social History Housing: Apartment Alcohol intake: current Alcohol intake frequency: holidays/special occasions only Alcohol type: beer Patient Tobacco Use Status: Never used Tobacco e-Cigarette/Vaping Use: Never Used Second Hand Smoke Exposure: No service: No Current occupational status: employed Current occupation: [employer] Current occupational exposures/hazards: No Cognitive needs: No Hearing needs: No Vision needs: No Review of Systems Const All systems reviewed & are unremarkable except as noted in HPI and below Physical Exam Const General: cooperative, healthy appearing and no acute distress Resp Effort & Inspection: normal respiratory effort and able to speak in complete sentences Extrem Other: Right knee: Mild effusion. No tenderness to palpation along the medial or lateral joint lines. Full knee extension and flexion. Negative Virginie's. NVI. Office Procedures AMB Joint Injection/Aspiration Joint Injection/Aspiration Primary Site: right knee Prep: site was prepped using aseptic technique, ethochloride spray was applied and injection warnings given Injected: 40 mg of, with 3 mL of, 1% plain lidocaine, 0.25% bupivacaine, in the joint and decadron Approach Used: anterolateral Procedure: The patient tolerated the procedure well, but had some pain with the injection and there was some relief with the local anesthesia Coding - Large joint Procedure code (CPT) selection complete Assessment & Plan Assessment & Plan (1) Osteoarthritis of right knee: Code(s): M17.11 - Unilateral primary osteoarthritis, right knee Category: Medical Plan The patient was offered a cortisone injection in the right knee. The patient was explained the risks, benefits, and alternatives to receiving this injection. After receiving consent for the injection, the patient had the procedure done while in the office today. The patient tolerated the procedure well with no complications. Follow-up will be PRN, or sooner if needed X-rays of the on right knee which were obtained while in the office today and were reviewed by me, Noemy Holloway PA-C, revealed osteoarthritis. Orders: Orders XR knee RT 3V Today M25.569 - Pain in unspecified knee Coding Level of Care Code Est Pt Level 3 (89079) Diagnoses Osteoarthritis of right knee M17.11 CPT Codes Coding - Large joint: 89571 - Large joint ([id number])
== END 2025-05-17 10:03 | disposition home or self-care (01) ==
LOC: HO.HOS 08:29
PROVIDERS: PCP Internal Medicine; Visit Provider Physician Assistant
DX: M17.11 Unilateral primary osteoarthritis, right knee (principal)
CPT/HCPCS: 20610; 99213

== ENCOUNTER → 2025-05-17 08:32 | Outpatient (BNV) | payer OTHER, SELFPAY | PROVIDERS: Visit Provider Radiology Diagnostic Radiology | DX: M17.11 Unilateral primary osteoarthritis, right knee (principal) | CPT/HCPCS: 73562 ==

== ENCOUNTER 2025-05-17 09:03 | Outpatient (REF) | payer OTHER, SELFPAY ==
--- NOTE | ~2025-05-17 | XR_ITS ---
EXAMINATION: XR KNEE, RIGHT CLINICAL INFORMATION: M25.569 - Pain in unspecified knee COMPARISON: June 02, 2024 TECHNIQUE: AP in standing position both knees, lateral and sunrise projection of the right knee. FINDINGS: Joint space narrowing involving medial lateral compartment both knees, right greater than the left side. No acute cortical disruption or malalignment. Small volume suprapatellar bursa joint effusion. No lytic or blastic lesions. No soft tissue calcifications. XR/XR knee RT 3V IMPRESSION: Bicompartmental osteoarthrosis/osteoarthritis, mild to moderate. Suprapatellar bursa joint effusion, small volume. Electronically signed by: Nitesh Perdomo MD 05/17/2025 09:07 AM EDT
--- OUTSIDE RECORDS SUMMARY | 2025-05-19 09:54 | XMS_ITS | Clinical Summary ---
Author Organization [address] [facility] g Address [address] [place] [address] Phone Care Team Providers Care Therapist Physical Name Role Phone Alecia Jack MD Primary Care Provider [phone] Allergies No known active allergies Medications ammonium lactate (AmLactin) 12 % lotion Apply topically if needed for dry skin. 400 g 2 5 02/29/20 26 Active Encounters Date Type Department Care Team Description 02/28/2025 10:45 AM EDT Consult Orthopedic Surgery [facility] [address] [phone] René Joyce DPM Pain in toes of both feet (Primary Dx); Onychogryphosis; Hammertoes of both feet; Dermatophytosis, nail from Last 3 Months Social History Tobacco Use Types Packs/Day Years Used Date Smoking Tobacco: Never Assessed Comments Unknown Sex and Gender Information Value Date Recorded Sex Assigned at Not on file Legal Sex Female 7:39 AM EDT Gender Identity Not on file Sexual Orientation Not on file Plan of Treatment Upcoming Encounters Date Type Department Care Team (Late st Contact Info) Description 05/31/2025 10:15 AM EST Office Visit Orthopedic [facility] [address] [id number] René Joyce DPM [address] [address] Health Maintenance Due Date Last Done Comments Breast Cancer Screening 1965 Colorectal Cancer Screening: Colonoscopy 1965 Hepatitis B Vaccines (1 of 3 - 19+ 3-dose series) 1984 Cervical Cancer Screening: Pap Smear 1986 Pneumococcal Vaccine: 50+ Years (1 of 1 - PCV) 2015 Zoster Vaccines (1 of 2) 2015 Depression Screening 07/28/2024 HIV Screening 12/16/2024 Hepatitis C Screening 12/16/2024 Social Influencers of Health Screening 12/16/2024 COVID-19 Vaccine ( season) 2025 06/18/2022, 12/11/2021, 06/06/2021, Additional history exists Influenza Vaccine (#1) 2025 , 04/06/2022, 05/26/2019, Additional history exists DTaP,Tdap,and Td Vaccines (2 - Td or Tdap) 12/15/2034 12/15/2024 RSV Immunization Adult Patients (1 - 1-dose 75+ series) 2040 HIB [...] to complete this topic RSV Immunization Patients Under 20 months Aged Out No longer eligible based on patient's age to complete this topic Varicella Vaccines Aged Out No longer eligible based on patient's age to complete this topic Insurance [facility] Care Teams Therapist Physical Relationship Specialty Start Date End Date Alecia Jack MD [address] [place] [address] , [address] [facility] D/B/A: [facility] B[facility] Patrick PCP - General Internal Medicine 12/16/24
--- OUTSIDE RECORDS SUMMARY | 2025-05-19 09:55 | XMS_ITS | Patient Health Record ---
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 current use of non-steroidal anti-inflammat ories (NSAID) (Z79.1) Active confirmed Plan Of Treatment Future Test Test Name Order Date COLONOSCOPY 10/30/2016 Insurance Providers Payer Name Payer Address Payer Phone Subscriber Number Group Number Insured Name Patient Relationship to Insured Coverage Start Date Coverage End Date [facility] [address] [place] [address] [id number] RACHEL PALOMARES Self - patient is the insured Medical (General) History Medical History History ICD Code pernicious anemia GERD nausea migraines anemia Surgical History Surgery Date(Month/Year) tubal ligation appendectomy
== END 2025-05-17 09:04 | disposition home or self-care (01) ==
LOC: HO.HOSX 09:03
PROVIDERS: Visit Provider Physician Assistant
DX: M17.11 Unilateral primary osteoarthritis, right knee (principal); M25.561 Pain in right knee
CPT/HCPCS: 20610; 73562; 99212; J0665; J1100; J2003